=== PATIENT | male | born 1980 | race Caucasian/White ===

== ENCOUNTER 2017-11-13 15:16 | Inpatient (IN) | payer OTHER, MEDICAID ==
[~2017-11-13] VITALS: Ht 165.1 cm; Wt 57.2 kg
[~2017-11-13 15:16] MED LIST: ALPR1TAB2 PO; ALPR2TAB2; ALPR2TAB2 PO; ALPR2TAB5 PO; CEPH-368 PO; FOLI-17; FOLI-17 PO; FOLI0.4T2 PO; FOLI20CA; HYDR2TAB29 PO; HYDR4TAB48; HYDR4TAB48 PO; MULT-658 PO; MULTIVITAMIN; OXYC-307; OXYC-307 PO; OXYC20TA42 PO; OXYC5TAB3 PO; SENN1TAB8 PO; [UNRECOGNIZED DRUG - CODE] PO
[2017-11-13] MEDS ORDERED: SODIUM CHLORIDE FLUSH 10ML SYR IVF ONE (16:00)
[2017-11-13 16:22] LABS: INTERNATIONAL NORMALIZED RATIO 1.12 (0.93-1.1); PROTHROMBIN TIME 11.5 Seconds (9.6-11.5)
[2017-11-13 16:26] LABS: ALBUMIN 4.3 g/dL (3.4-5.0); ANION GAP 6 mmol/L (5-15); CALCIUM 8.4 mg/dL (8.5-10.1); CHLORIDE 109 mmol/L (98-107)
[2017-11-13 16:29] LABS: ALKALINE PHOSPHATASE 123 U/L (45-117); BILIRUBIN,TOTAL 10.6 mg/dL (0.2-1.0); CREATININE 0.59 mg/dL (0.7-1.3)
[2017-11-13 16:42] LABS: MD YES; MEAN CORPUSCULAR HEMOGLOBIN 41.4 pg (27.5-34.5); MEAN CORPUSCULAR HGB CONC 33.4 g/dL (33.2-36.2); MEAN CORPUSCULAR VOLUME 124.1 fL (81-97); MEAN PLATELET VOLUME 7.6 fL (7.4-10.4); PLATELET COUNT 525 x10^3/uL (130-400); RED BLOOD COUNT 2.12 x10^6/uL (4.38-5.82); RED CELL DISTRIBUTION WIDTH 26.6 % (9.4-14.8)
[2017-11-13 16:47] LABS: ALANINE AMINOTRANSFERASE 64 U/L (12-78); ANISOCYTOSIS 2+; BANDS%(MANUAL) 2 % (0-7); BASOS% (MANUAL) 2 % (0-1); EOS#(MANUAL) 0.59 x10^3/uL (0.0-0.4); EOS% (MANUAL) 4 % (1-7); HYPOCHROMIA 1+; LYMPH#(MANUAL) 8.14 x10^3/uL (1-3.4); LYMPHS% (MANUAL) 55 % (22-44); METAMYELOCYTES# (MANUAL) 0.15 x10^3/uL (0-0); METAMYELOCYTES% (MANUAL) 1 % (0-1); MICROCYTOSIS 1+; MONOS#(MANUAL) 1.04 x10^3/uL (0.3-2.7); MONOS% (MANUAL) 7 % (2-9); NRBC % (MANUAL) 45 % (0-1); POLYCHROMASIA 3+; SEG#(MANUAL) 4.29 x10^3/uL (1.8-6.8); SEGS% (MANUAL) 29 % (42-75)
[2017-11-13 16:48] LABS: OVALOCYTES 1+; SCHISTOCYTES 1+; SPHEROCYTES 1+; TARGET CELLS 1+
[2017-11-13 16:49] LABS: SMUDGE CELLS 1+
[2017-11-13 16:51] LABS: <PLATELET ESTIMATE> INCREASED; <PLT MORPHOLOGY> NORMAL PLT MORPH
[2017-11-13 16:51] LABS: CULTURE INDICATED? YES; MICROSCOPIC INDICATED
[2017-11-13] MEDS ORDERED: BISACODYL 10 MG SUPP PR PRN (19:30)
[2017-11-13] MEDS ORDERED: OXYCODONE HCL PO SCH (19:30)
[2017-11-13] MEDS ORDERED: DIPHENHYDRAMINE 25 MG CAPSULE PO PRN (19:30)
[2017-11-13] MEDS ORDERED: [UNRECOGNIZED DRUG - OTHER] PO SCH (19:30)
[2017-11-13] MEDS ORDERED: POLYETHYLENE GLYCOL 17 GM PACKET PO PRN (19:30)
[2017-11-13] MEDS ORDERED: ACETAMINOPHEN PO SCH (19:30)
[2017-11-13] MEDS ORDERED: ONDANSETRON ODT 4 MG PO PRN (19:30)
[2017-11-13] MEDS ORDERED: SODIUM CHLORIDE FLUSH 10ML SYR IVF PRN (19:30)
[2017-11-13] MEDS: HYDROmorphone 2MG TABLET PO SCH (21:24)
[2017-11-13] MEDS: SODIUM CHLORIDE 0.9% 1,000 ML IV SCH (21:24)
[2017-11-13] MEDS: ALPRazolam 1MG TABLET PO PRN (22:04)
[2017-11-13 23:49] VITALS: BP 116/71
[2017-11-14] MEDS: OXYcodone IR 5MG TABLET PO PRN ×4 (00:38→19:55)
[2017-11-14 01:39] VITALS: BP 100/67
[2017-11-14 03:15] LABS: OCCULT BLOOD NEGATIVE (NEGATIVE)
[2017-11-14 05:35] LABS: MEAN CORPUSCULAR HEMOGLOBIN 40.4 pg (27.5-34.5); MEAN CORPUSCULAR HGB CONC 32.4 g/dL (33.2-36.2); MEAN CORPUSCULAR VOLUME 124.7 fL (81-97); MEAN PLATELET VOLUME 7.9 fL (7.4-10.4); PLATELET COUNT 415 x10^3/uL (130-400); RED BLOOD COUNT 1.88 x10^6/uL (4.38-5.82); RED CELL DISTRIBUTION WIDTH 26.4 % (9.4-14.8)
[2017-11-14 05:48] LABS: ALBUMIN 3.6 g/dL (3.4-5.0); ANION GAP 6 mmol/L (5-15); CHLORIDE 110 mmol/L (98-107)
[2017-11-14 05:50] LABS: ALANINE AMINOTRANSFERASE 46 U/L (12-78); ALKALINE PHOSPHATASE 106 U/L (45-117); BILIRUBIN,TOTAL 8.1 mg/dL (0.2-1.0); CREATININE 0.61 mg/dL (0.7-1.3); TOTAL PROTEIN 6.1 g/dL (6.4-8.2)
[2017-11-14 05:56] LABS: MD YES
[2017-11-14 06:01] LABS: ANISOCYTOSIS 2+; BASOS#(MANUAL) 0.37 x10^3/uL (0-0.1); BASOS% (MANUAL) 2 % (0-1); EOS#(MANUAL) 0.18 x10^3/uL (0.0-0.4); EOS% (MANUAL) 1 % (1-7); HYPOCHROMIA 1+; LYMPH#(MANUAL) 8.65 x10^3/uL (1-3.4); LYMPHS% (MANUAL) 47 % (22-44); MICROCYTOSIS 1+; MONOS#(MANUAL) 2.02 x10^3/uL (0.3-2.7); MONOS% (MANUAL) 11 % (2-9); NRBC % (MANUAL) 10 % (0-1); POLYCHROMASIA 2+; SEG#(MANUAL) 7.18 x10^3/uL (1.8-6.8); SEGS% (MANUAL) 39 % (42-75)
[2017-11-14 06:02] LABS: <PLATELET ESTIMATE> ADEQUATE; <PLT MORPHOLOGY> NORMAL PLT MORPH; OVALOCYTES 1+; SMUDGE CELLS 1+; SPHEROCYTES 1+; TARGET CELLS 1+
[2017-11-14] MEDS: SODIUM CHLORIDE 0.9% 1,000 ML IV SCH ×4 (06:11→23:39)
[2017-11-14 08:05] VITALS: BP 123/79
[2017-11-14] MEDS: FOLIC ACID 1 MG TABLET PO SCH (08:45)
[2017-11-14] MEDS: MULTIVITAMIN 1 TABLET PO SCH (08:45)
[2017-11-14] MEDS: HYDROmorphone 2MG TABLET PO SCH (08:46)
[2017-11-14] MEDS: SENNA/DOCUSATE TABLET PO SCH (08:47)
[2017-11-14 09:19] LABS: OCCULT BLOOD NEGATIVE (NEGATIVE)
[2017-11-14 13:15] VITALS: BP 131/77
[2017-11-14 20:00] VITALS: BP 117/79
[2017-11-14] MEDS: HYDROmorphone 2MG TABLET PO PRN (22:07)
[2017-11-14] MEDS: ALPRazolam 1MG TABLET PO PRN (22:07)
[2017-11-15] VITALS (7 sets, daily range): BP systolic 107–120; BP diastolic 69–79
[2017-11-15] MEDS: OXYcodone IR 5MG TABLET PO PRN ×4 (02:05→21:56)
[2017-11-15 02:37] LABS: ALANINE AMINOTRANSFERASE 40 U/L (12-78); ALBUMIN 3.5 g/dL (3.4-5.0); ANION GAP 5 mmol/L (5-15); CHLORIDE 110 mmol/L (98-107); CREATININE 0.67 mg/dL (0.7-1.3)
[2017-11-15 02:48] LABS: ALKALINE PHOSPHATASE 110 U/L (45-117); BILIRUBIN,TOTAL 7.8 mg/dL (0.2-1.0)
[2017-11-15 03:17] LABS: MD YES; MEAN CORPUSCULAR HEMOGLOBIN 39.6 pg (27.5-34.5); MEAN CORPUSCULAR HGB CONC 31.5 g/dL (33.2-36.2); MEAN CORPUSCULAR VOLUME 125.7 fL (81-97); MEAN PLATELET VOLUME 8.1 fL (7.4-10.4); PLATELET COUNT 436 x10^3/uL (130-400); RED BLOOD COUNT 1.88 x10^6/uL (4.38-5.82); RED CELL DISTRIBUTION WIDTH 26.8 % (9.4-14.8)
[2017-11-15 03:21] LABS: BAND#(MANUAL) 0.21 x10^3/uL; BANDS%(MANUAL) 1 % (0-7); BASOS#(MANUAL) 0.62 x10^3/uL (0-0.1); BASOS% (MANUAL) 3 % (0-1); EOS#(MANUAL) 1.44 x10^3/uL (0.0-0.4); EOS% (MANUAL) 7 % (1-7); LYMPH#(MANUAL) 12.36 x10^3/uL (1-3.4); LYMPHS% (MANUAL) 60 % (22-44); MONOS#(MANUAL) 0.62 x10^3/uL (0.3-2.7); MONOS% (MANUAL) 3 % (2-9); NRBC % (MANUAL) 23 % (0-1); SEG#(MANUAL) 5.36 x10^3/uL (1.8-6.8); SEGS% (MANUAL) 26 % (42-75)
[2017-11-15 03:22] LABS: ANISOCYTOSIS 2+; HYPOCHROMIA 1+; MICROCYTOSIS 1+; POLYCHROMASIA 2+; SPHEROCYTES 1+
[2017-11-15 03:23] LABS: CRENATED 1+; OVALOCYTES 1+
[2017-11-15 03:24] LABS: HOWELL-JOLLY BODIES 1+
[2017-11-15 03:25] LABS: <PLATELET ESTIMATE> INCREASED; <PLT MORPHOLOGY> NORMAL PLT MORPH
[2017-11-15] MEDS: MULTIVITAMIN 1 TABLET PO SCH (08:31)
[2017-11-15] MEDS: SODIUM CHLORIDE 0.9% 1,000 ML IV SCH ×2 (08:31→17:50)
[2017-11-15] MEDS: FOLIC ACID 1 MG TABLET PO SCH (08:31)
[2017-11-15] MEDS: SENNA/DOCUSATE TABLET PO SCH (08:33)
[2017-11-15] MEDS: HYDROmorphone 2MG TABLET PO PRN ×2 (11:13→23:16)
[2017-11-15 14:45] LABS: MD YES; MEAN CORPUSCULAR HEMOGLOBIN 41.3 pg (27.5-34.5); MEAN CORPUSCULAR HGB CONC 32.7 g/dL (33.2-36.2); MEAN CORPUSCULAR VOLUME 126.2 fL (81-97); PLATELET COUNT 447 x10^3/uL (130-400); RED BLOOD COUNT 2.09 x10^6/uL (4.38-5.82)
[2017-11-15 14:58] LABS: RED CELL DISTRIBUTION WIDTH 25.4 % (9.4-14.8)
[2017-11-15 14:59] LABS: BAND#(MANUAL) 0.16 x10^3/uL; BANDS%(MANUAL) 1 % (0-7); EOS#(MANUAL) 0.32 x10^3/uL (0.0-0.4); EOS% (MANUAL) 2 % (1-7); LYMPHS% (MANUAL) 45 % (22-44); MONOS#(MANUAL) 0.32 x10^3/uL (0.3-2.7); MONOS% (MANUAL) 2 % (2-9); SEGS% (MANUAL) 50 % (42-75)
[2017-11-15 15:00] LABS: ANISOCYTOSIS 2+; CRENATED 1+; HYPOCHROMIA 2+; MICROCYTOSIS 1+; OVALOCYTES 1+; POLYCHROMASIA 3+; SPHEROCYTES 1+
[2017-11-15 15:01] LABS: TARGET CELLS 1+
[2017-11-15 15:02] LABS: <PLATELET ESTIMATE> ADEQUATE; <PLT MORPHOLOGY> NORMAL PLT MORPH; TOXIC GRAN 1+
[2017-11-15] MEDS: ALPRazolam 1MG TABLET PO PRN (21:56)
[2017-11-16 02:45] VITALS: BP 104/62
[2017-11-16] MEDS: SODIUM CHLORIDE 0.9% 1,000 ML IV SCH (03:49)
[2017-11-16] MEDS: OXYcodone IR 5MG TABLET PO PRN ×2 (03:49→11:15)
[2017-11-16 04:31] LABS: ALANINE AMINOTRANSFERASE 39 U/L (12-78); ALBUMIN 3.4 g/dL (3.4-5.0); ANION GAP 6 mmol/L (5-15); CALCIUM 8.2 mg/dL (8.5-10.1); CHLORIDE 109 mmol/L (98-107); CREATININE 0.77 mg/dL (0.7-1.3)
[2017-11-16 04:34] LABS: ALKALINE PHOSPHATASE 108 U/L (45-117); BILIRUBIN,TOTAL 5.2 mg/dL (0.2-1.0)
[2017-11-16 04:59] LABS: MEAN CORPUSCULAR HEMOGLOBIN 39.2 pg (27.5-34.5); MEAN CORPUSCULAR HGB CONC 30.8 g/dL (33.2-36.2); MEAN CORPUSCULAR VOLUME 127.5 fL (81-97); MEAN PLATELET VOLUME 8.2 fL (7.4-10.4); PLATELET COUNT 414 x10^3/uL (130-400); RED BLOOD COUNT 1.84 x10^6/uL (4.38-5.82); RED CELL DISTRIBUTION WIDTH 25.5 % (9.4-14.8)
[2017-11-16 05:21] LABS: MD YES
[2017-11-16 05:27] LABS: BAND#(MANUAL) 0.19 x10^3/uL; BANDS%(MANUAL) 1 % (0-7); BASOS#(MANUAL) 0.37 x10^3/uL (0-0.1); BASOS% (MANUAL) 2 % (0-1); EOS#(MANUAL) 1.31 x10^3/uL (0.0-0.4); EOS% (MANUAL) 7 % (1-7); LYMPH#(MANUAL) 8.23 x10^3/uL (1-3.4); LYMPHS% (MANUAL) 44 % (22-44); MONOS#(MANUAL) 1.31 x10^3/uL (0.3-2.7); MONOS% (MANUAL) 7 % (2-9); MYELOCYTES# (MANUAL) 0.19 x10^3/uL (0-0); MYELOCYTES% (MANUAL) 1 % (0-0); NRBC % (MANUAL) 53 % (0-1); SEG#(MANUAL) 7.11 x10^3/uL (1.8-6.8); SEGS% (MANUAL) 38 % (42-75)
[2017-11-16 05:28] LABS: ANISOCYTOSIS 2+; HYPOCHROMIA 2+; MICROCYTOSIS 1+
[2017-11-16 05:29] LABS: OVALOCYTES 1+; POLYCHROMASIA 3+; SPHEROCYTES 1+
[2017-11-16 05:30] LABS: CRENATED 1+; HOWELL-JOLLY BODIES 1+
[2017-11-16 05:31] LABS: <PLATELET ESTIMATE> INCREASED; <PLT MORPHOLOGY> NORMAL PLT MORPH
[2017-11-16 07:05] VITALS: BP 122/72
[2017-11-16] MEDS: SENNA/DOCUSATE TABLET PO SCH (09:00)
[2017-11-16] MEDS: MULTIVITAMIN 1 TABLET PO SCH (09:08)
[2017-11-16] MEDS: FOLIC ACID 1 MG TABLET PO SCH (09:08)
[2017-11-16 09:21] VITALS: BP 118/70
[2017-11-16 09:48] VITALS: BP 115/63
[2017-11-16] MEDS ORDERED: ALPRazolam 1MG TABLET PO ONE (10:00)
[2017-11-16] MEDS ORDERED: HYDROmorphone 2MG TABLET PO ONE (10:00)
[2017-11-16] MEDS: HYDROmorphone 2MG TABLET PO PRN (12:01)
[2017-11-16 12:03] VITALS: BP 109/63
[2017-11-16 13:50] VITALS: BP 119/73
[2017-11-16 14:14] LABS: MEAN CORPUSCULAR HEMOGLOBIN 37.7 pg (27.5-34.5); MEAN CORPUSCULAR HGB CONC 32.3 g/dL (33.2-36.2); MEAN CORPUSCULAR VOLUME 116.5 fL (81-97); MEAN PLATELET VOLUME 8.2 fL (7.4-10.4); PLATELET COUNT 413 x10^3/uL (130-400); RED BLOOD COUNT 2.65 x10^6/uL (4.38-5.82)
[2017-11-16 14:15] LABS: RED CELL DISTRIBUTION WIDTH 32.1 % (9.4-14.8)
[2017-11-16 14:16] LABS: MD YES
[2017-11-16 14:20] LABS: BASOS#(MANUAL) 0.43 x10^3/uL (0-0.1); BASOS% (MANUAL) 2 % (0-1); EOS#(MANUAL) 1.07 x10^3/uL (0.0-0.4); EOS% (MANUAL) 5 % (1-7); LYMPH#(MANUAL) 7.92 x10^3/uL (1-3.4); LYMPHS% (MANUAL) 37 % (22-44); METAMYELOCYTES# (MANUAL) 0.21 x10^3/uL (0-0); METAMYELOCYTES% (MANUAL) 1 % (0-1); MONOS#(MANUAL) 1.07 x10^3/uL (0.3-2.7); MONOS% (MANUAL) 5 % (2-9); MYELOCYTES# (MANUAL) 0.64 x10^3/uL (0-0); MYELOCYTES% (MANUAL) 3 % (0-0); NRBC % (MANUAL) 94 % (0-1); REACTIVE LYMPHS # (MANUAL) 0.43 x10^3/uL (0-0); REACTIVE LYMPHS % (MANUAL) 2 % (0-0); SEG#(MANUAL) 9.63 x10^3/uL (1.8-6.8); SEGS% (MANUAL) 45 % (42-75)
[2017-11-16 14:21] LABS: <PLATELET ESTIMATE> INCREASED
[2017-11-16 14:23] LABS: ANISOCYTOSIS 2+
[2017-11-16 14:24] LABS: HOWELL-JOLLY BODIES 1+; OVALOCYTES 1+
[2017-11-16 14:25] LABS: LARGE PLATELETS 1+; POLYCHROMASIA 3+
[2017-11-16 14:26] LABS: SPHEROCYTES 1+
== END 2017-11-16 17:00 | DRG 812 ==
LOC: ED 16:01 → EDIP 19:26 → 4WST 20:09
PROVIDERS: ADMIT Internal Medicine; ATTEND Internal Medicine
PROC: 30233N1 Transfusion of Nonautologous Red Blood Cells into Peripheral Vein, Percutaneous Approach (ICD-10-PCS; principal; 2017-11-16)
DX: D57.00 Hb-SS disease with crisis, unspecified (principal); F11.20 Opioid dependence, uncomplicated; D55.2 Anemia due to disorders of glycolytic enzymes; B19.20 Unspecified viral hepatitis C without hepatic coma; D53.9 Nutritional anemia, unspecified; D72.829 Elevated white blood cell count, unspecified; F17.210 Nicotine dependence, cigarettes, uncomplicated; G89.4 Chronic pain syndrome; N28.1 Cyst of kidney, acquired; Z76.5 Malingerer [conscious simulation]; Z79.891 Long term (current) use of opiate analgesic; Z80.0 Family history of malignant neoplasm of digestive organs; Z82.49 Family history of ischemic heart disease and other diseases of the circulatory system; Z90.81 Acquired absence of spleen; Z90.49 Acquired absence of other specified parts of digestive tract; Z88.8 Allergy status to other drugs, medicaments and biological substances; Z71.6 Tobacco abuse counseling
CPT/HCPCS: 36415; 76700; 80053; 81001; 82272; 82607; 83690; 83735; 84100; 84443; 85025; 85610; 85730; 86850; 86900; 86923; 87040; 87086; 90656; 99285; G0378; J7030; P9016; Q0163

== ENCOUNTER 2018-04-24 12:54 | Emergency (ER) | payer OTHER, MEDICAID ==
[~2018-04-24] VITALS: Ht 165.1 cm; Wt 42.8 kg
[~2018-04-24 12:54] MED LIST changes: +SENN-177 PO; -SENN1TAB8 PO
[2018-04-24] MEDS ORDERED: HYDROmorphone 1 MG/ML, 1ML IV ONE ×2 (13:30→16:30)
[2018-04-24] MEDS ORDERED: ONDANSETRON ODT 4 MG PO ONE (13:30)
[2018-04-24] MEDS ORDERED: SODIUM CHLORIDE FLUSH 10ML SYR IVF ONE (13:30)
--- NOTE | 2018-04-24 13:47 | NUR ---
PIV IN RIGHT EJ PLACED WITHOUT COMPLICATIONS.
[2018-04-24] MEDS ORDERED: HYDROmorphone 1 MG/ML, 1ML ONE ×2 (14:06→16:10)
[2018-04-24] MEDS ORDERED: ONDANSETRON ODT 4 MG ONE (14:06)
[2018-04-24 14:10] LABS: INTERNATIONAL NORMALIZED RATIO 1.17 (0.93-1.1); PROTHROMBIN TIME 12.2 Seconds (9.6-11.5)
[2018-04-24 14:11] LABS: ALANINE AMINOTRANSFERASE 55 U/L (12-78); ALBUMIN 4.8 g/dL (3.4-5.0); ANION GAP 5 mmol/L (5-15); CHLORIDE 111 mmol/L (98-107); CREATININE 0.63 mg/dL (0.7-1.3); MEAN CORPUSCULAR HEMOGLOBIN 34.1 pg (27.5-34.5); MEAN CORPUSCULAR VOLUME 103.4 fL (81-97); MEAN PLATELET VOLUME 8.2 fL (7.4-10.4); PLATELET COUNT 493 x10^3/uL (130-400); RED BLOOD COUNT 3.03 x10^6/uL (4.38-5.82); RED CELL DISTRIBUTION WIDTH 31.6 % (9.4-14.8)
[2018-04-24 14:14] LABS: ALKALINE PHOSPHATASE 117 U/L (45-117); BILIRUBIN,TOTAL 7.1 mg/dL (0.2-1.0); TOTAL PROTEIN 7.5 g/dL (6.4-8.2)
[2018-04-24] MEDS ORDERED: DIPHENHYDRAMINE 50 MG/ML, 1ML ONE (14:20)
[2018-04-24] MEDS ORDERED: DIPHENHYDRAMINE 50 MG/ML, 1ML IVPush ONE (14:30)
--- NOTE | 2018-04-24 15:01 | NUR ---
PT PRE MEDICATED FOR CT. CONTACTED CT.
[2018-04-24 15:11] LABS: MD YES
[2018-04-24 15:14] LABS: BASOS#(MANUAL) 0.21 x10^3/uL (0-0.1); BASOS% (MANUAL) 2 % (0-1); EOS% (MANUAL) 1 % (1-7); LYMPH#(MANUAL) 4.43 x10^3/uL (1-3.4); LYMPHS% (MANUAL) 43 % (22-44); MONOS#(MANUAL) 1.34 x10^3/uL (0.3-2.7); MONOS% (MANUAL) 13 % (2-9); NRBC % (MANUAL) 10 % (0-1); SEG#(MANUAL) 4.22 x10^3/uL (1.8-6.8); SEGS% (MANUAL) 41 % (42-75)
[2018-04-24 15:16] LABS: ANISOCYTOSIS 2+
[2018-04-24 15:17] LABS: POLYCHROMASIA 2+
[2018-04-24 15:18] LABS: OVALOCYTES 1+; SPHEROCYTES 1+
[2018-04-24 15:20] LABS: <PLATELET ESTIMATE> INCREASED; CRENATED 1+; HOWELL-JOLLY BODIES 1+; LARGE PLATELETS 1+
--- NOTE | 2018-04-24 15:21 | NUR ---
pt to ct with rn perinatal, tollerated CT WELL AND RTD TO ROOM W/O INCIDENT. VSS
[2018-04-24 15:22] VITALS: BP 125/68
--- NOTE | 2018-04-24 16:26 | NUR ---
SBAR RPT TO RAMSEY CORONEL RN, RYAN. PT D/C IN CUSTODY, UPRIGHT STEADY GAIT. VERBALIZES UNDERSTANDING OF D/C INSTRUCTIONS.
== END 2018-04-24 16:21 | disposition home or self-care (01) ==
LOC: ED 13:03
DX: G89.29 Other chronic pain (principal); R10.84 Generalized abdominal pain; D64.9 Anemia, unspecified
CPT/HCPCS: 36415; 74177; 80053; 83690; 85025; 85610; 85730; 86850; 86900; 93005; 96374; 96375; 96376; 99284; J1170; J1200

== ENCOUNTER 2018-06-11 10:13 | Emergency (ER) | payer SELFPAY ==
[~2018-06-11] VITALS: Ht 165.1 cm; Wt 54.8 kg
--- NOTE | 2018-06-11 11:06 | NUR ---
TO ROOM FROM LOBBY
--- NOTE | 2018-06-11 11:10 | NUR ---
pt up self with steady gait to rr to collect ua.
[2018-06-11] MEDS ORDERED: OXYC-307 PO (11:21)
[2018-06-11] MEDS ORDERED: FOLI-17 PO (11:21)
[2018-06-11] MEDS ORDERED: MULTIVITAMIN (11:21)
[2018-06-11] MEDS ORDERED: HYDR2TAB29 PO (11:21)
--- NOTE | 2018-06-11 11:27 | NUR ---
PT TO ED FOR JAUNDICE X2 DAYS AND ABD PAIN RAD TO RIGHT FLANK X1 DAY. PT ALSO REPORTS BLOOD IN URINE AND DRAK, TARRY STOOLS. HX ULCERS AND HEP C TREATED WITH HARBONI. CONNECTED TO MONITORS. VSS. AWAITING EDMD ASSESSMETN.
--- NOTE | 2018-06-11 11:31 | NUR ---
edmd to bs for assessment.
[2018-06-11] MEDS ORDERED: ONDANSETRON 2MG/ML, 2ML ONE (11:55)
[2018-06-11] MEDS ORDERED: MORPHINE SULFATE 4 MG/ML, 1ML ONE (11:55)
[2018-06-11] MEDS: ONDANSETRON 2MG/ML, 2ML IVPush ONE ×2 (12:00→12:38)
[2018-06-11] MEDS ORDERED: MORPHINE SULFATE 4 MG/ML, 1ML IVPush PRN (12:00)
[2018-06-11] MEDS ORDERED: SODIUM CHLORIDE FLUSH 10ML SYR IVF ONE (12:00)
[2018-06-11 12:12] LABS: MICROSCOPIC AUTO
--- NOTE | 2018-06-11 12:12 | NUR ---
pt to ct.
[2018-06-11 12:25] LABS: CULTURE INDICATED? YES
--- NOTE | 2018-06-11 12:43 | NUR ---
pt resting in room. pt medicated per apr. requesting benadryl for itching with morphine. will notify edmd.
--- NOTE | 2018-06-11 12:49 | NUR ---
us to bs.
[2018-06-11 12:53] LABS: ALBUMIN 3.8 g/dL (3.4-5.0); ANION GAP 5 mmol/L (5-15); CALCIUM 8.4 mg/dL (8.5-10.1); CHLORIDE 114 mmol/L (98-107); INTERNATIONAL NORMALIZED RATIO 1.05 (0.93-1.1)
[2018-06-11 12:57] LABS: ALANINE AMINOTRANSFERASE 52 U/L (12-78); ALKALINE PHOSPHATASE 124 U/L (45-117); BILIRUBIN,TOTAL 6.2 mg/dL (0.2-1.0); CREATININE 0.62 mg/dL (0.7-1.3); TOTAL PROTEIN 6.5 g/dL (6.4-8.2)
[2018-06-11 13:20] LABS: MD YES; MEAN CORPUSCULAR HEMOGLOBIN 38.8 pg (27.5-34.5); MEAN CORPUSCULAR VOLUME 121.2 fL (81-97); MEAN PLATELET VOLUME 7.4 fL (7.4-10.4); PLATELET COUNT 528 x10^3/uL (130-400); RED BLOOD COUNT 2.19 x10^6/uL (4.38-5.82); RED CELL DISTRIBUTION WIDTH 26.8 % (9.4-14.8)
[2018-06-11 13:24] LABS: BAND#(MANUAL) 0.13 x10^3/uL; BANDS%(MANUAL) 1 % (0-7); BASOS#(MANUAL) 0.13 x10^3/uL (0-0.1); BASOS% (MANUAL) 1 % (0-1); EOS#(MANUAL) 1.21 x10^3/uL (0.0-0.4); EOS% (MANUAL) 9 % (1-7); LYMPH#(MANUAL) 4.69 x10^3/uL (1-3.4); LYMPHS% (MANUAL) 35 % (22-44); MONOS#(MANUAL) 2.01 x10^3/uL (0.3-2.7); MONOS% (MANUAL) 15 % (2-9); SEG#(MANUAL) 5.23 x10^3/uL (1.8-6.8); SEGS% (MANUAL) 39 % (42-75)
--- NOTE | 2018-06-11 13:24 | NUR ---
us complete. awaiting results from us and labs.
[2018-06-11 13:26] LABS: ANISOCYTOSIS 1+; NRBC % (MANUAL) 36 % (0-1)
[2018-06-11 13:37] LABS: <PLATELET ESTIMATE> INCREASED; <PLT MORPHOLOGY> NORMAL PLT MORPH
[2018-06-11 13:38] LABS: POLYCHROMASIA 2+
[2018-06-11 13:39] LABS: ACANTHOCYTES 1+; ECHINOCYTES 1+; TARGET CELLS 1+
[2018-06-11 13:41] LABS: STOMATOCYTES 1+
[2018-06-11 13:51] VITALS: BP 112/73
--- NOTE | 2018-06-11 13:52 | NUR ---
PT RESTING IN ROOM. VSS. REQUESTING PAIN MED. WILL NOTIFY EDMD.
--- NOTE | 2018-06-11 14:20 | NUR ---
edmd to bs to update on poc.
[2018-06-11] MEDS ORDERED: HYDROmorphone 2 MG/ML, 1ML IVPush PRN (14:30)
[2018-06-11 14:34] LABS: RED BLOOD COUNT 2.19 x10^6/uL (4.38-5.82)
[2018-06-11] MEDS ORDERED: HYDROmorphone 1 MG/ML, 1ML VIAL ONE (14:40)
[2018-06-11 14:57] LABS: RETICULOCYTE COUNT % 38.9 % (0.5-1.5)
[2018-06-11 14:59] LABS: ABSOLUTE RETICS # 0.852 x10^6/uL (0.5-1.5)
== END 2018-06-11 15:06 | disposition home or self-care (01) ==
LOC: MERGE 10:13 → ED 14:09
DX: G89.29 Other chronic pain (principal); R10.31 Right lower quadrant pain; D55.2 Anemia due to disorders of glycolytic enzymes; E80.6 Other disorders of bilirubin metabolism; F17.200 Nicotine dependence, unspecified, uncomplicated
CPT/HCPCS: 36415; 74176; 76700; 80053; 81001; 83690; 85025; 85045; 85610; 85730; 87086; 96374; 96375; 99284; J1170; J2405

== ENCOUNTER 2018-06-30 12:06 | Inpatient (IN) | payer MEDICAID ==
[~2018-06-30] VITALS: Ht 165.1 cm; Wt 57.7 kg
[2018-06-30] MEDS ORDERED: SODIUM CHLORIDE 0.9% 1,000 ML IV ONE (12:14)
[2018-06-30] MEDS ORDERED: SODIUM CHLORIDE FLUSH 10ML SYR IVF ONE (12:30)
[2018-06-30 12:59] LABS: INTERNATIONAL NORMALIZED RATIO 1.09 (0.93-1.1); PROTHROMBIN TIME 11.4 Seconds (9.6-11.5)
[2018-06-30 13:01] LABS: ALBUMIN 3.6 g/dL (3.4-5.0); CALCIUM 7.7 mg/dL (8.5-10.1); CHLORIDE 113 mmol/L (98-107); CREATININE 0.71 mg/dL (0.7-1.3)
[2018-06-30 13:04] LABS: BILIRUBIN,TOTAL 7.3 mg/dL (0.2-1.0)
--- NOTE | 2018-06-30 13:08 | NUR ---
PT REQUESTING PAIN MEDICATION. PT EDUCATED MD NEEDS TO WAIT FOR RECORDS FROM [facility] AND GET LAB RESULTS. PT AGREES. PT REMOVING MONITORS TO COME INTO [facility] TO SPEAK TO STAFF AND MD. PT EDUCATED TO LEAVE MONITORS IN PLACE
[2018-06-30 13:17] LABS: ANION GAP 7 mmol/L (5-15)
[2018-06-30 13:19] LABS: ALKALINE PHOSPHATASE 127 U/L (45-117); TOTAL PROTEIN 6.3 g/dL (6.4-8.2)
[2018-06-30 13:21] VITALS: BP 97/43
[2018-06-30 13:27] LABS: MEAN CORPUSCULAR HEMOGLOBIN 39.9 pg (27.5-34.5); MEAN CORPUSCULAR HGB CONC 31.9 g/dL (33.2-36.2); MEAN CORPUSCULAR VOLUME 124.8 fL (81-97); MEAN PLATELET VOLUME 7.3 fL (7.4-10.4); PLATELET COUNT 603 x10^3/uL (130-400); RED BLOOD COUNT 1.98 x10^6/uL (4.38-5.82); RED CELL DISTRIBUTION WIDTH 23.5 % (9.4-14.8)
[2018-06-30 13:38] LABS: MD YES
[2018-06-30 13:46] LABS: EOS#(MANUAL) 0.39 x10^3/uL (0.0-0.4); EOS% (MANUAL) 3 % (1-7); LYMPH#(MANUAL) 6.37 x10^3/uL (1-3.4); LYMPHS% (MANUAL) 49 % (22-44); MONOS#(MANUAL) 0.65 x10^3/uL (0.3-2.7); MONOS% (MANUAL) 5 % (2-9); NRBC % (MANUAL) 31 % (0-1); SEG#(MANUAL) 5.59 x10^3/uL (1.8-6.8); SEGS% (MANUAL) 43 % (42-75)
[2018-06-30 13:47] LABS: ANISOCYTOSIS 2+
[2018-06-30 13:48] LABS: ECHINOCYTES 1+; HYPOCHROMIA 1+; POLYCHROMASIA 2+; TARGET CELLS 1+
[2018-06-30 13:50] LABS: HOWELL-JOLLY BODIES 1+; STOMATOCYTES 1+
[2018-06-30 13:55] LABS: SICKLE CELLS 1+
[2018-06-30 13:57] LABS: <PLATELET ESTIMATE> INCREASED; SMUDGE CELLS 1+
[2018-06-30 13:58] LABS: <PLT MORPHOLOGY> NORMAL PLT MORPH
[2018-06-30 13:59] LABS: ALANINE AMINOTRANSFERASE 54 U/L (12-78)
[2018-06-30] MEDS ORDERED: LACTULOSE 20 GM/30 ML UDC PO ONE (14:00)
--- NOTE | 2018-06-30 14:06 | NUR ---
PT IN [facility] AT THIS TIME, PT CONTINUES TO REMOVE MONITOR AND GET UP AND WALK AROUND DESPITE EDUCATION NOT TO. CRITICAL AMMONIA FROM LAB 131, LACTULOSE GIVEN, BEDSIDE COMMODE OFFERED, PT STATED "I'M NOT DOING THAT", PT STATED HE WOULD GO TO THE BATHROOM DOWN THE [facility]. PT STATED "WHY DIDN'T THE OTHER HOSPITAL KNOW THAT, BECAUSE THEY'RE A SHITTY HOSPITAL", PT AGREED TO TAKE LACTULOSE. AWAITING ADMIT ORDERS
--- NOTE | 2018-06-30 14:33 | NUR ---
REPORT TO ANGELES LUTZ
[2018-06-30] MEDS ORDERED: OXYcodone/APAP 10/325MG TABLET PO PRN (15:00)
[2018-06-30] MEDS ORDERED: ONDANSETRON 2MG/ML, 2ML IVPush PRN (15:00)
[2018-06-30] MEDS ORDERED: ALPRazolam 1MG TAB PO PRN (15:00)
--- NOTE | 2018-06-30 15:02 | NUR ---
ADMIT ORDERS CHANGED TO TELE, AWIATING TELE BED ASSIGNMENT
--- NOTE | 2018-06-30 15:53 | NUR ---
REPORT TO ALBARO
[2018-06-30] MEDS ORDERED: DIPHENHYDRAMINE 25 MG CAPSULE PO ONE (17:00)
[2018-06-30] MEDS ORDERED: LACTULOSE 10 GM/15 ML UDC PO SCH (21:00)
[2018-07-01] MEDS ORDERED: PANTOPROZOLE 40MG TABLET PO SCH (07:30)
[2018-07-01] MEDS ORDERED: MULTIVITAMIN 1 TABLET PO SCH (09:00)
[2018-07-01] MEDS ORDERED: FOLIC ACID 1 MG TABLET PO SCH (09:00)
== END 2018-06-30 19:57 | disposition left against medical advice (07) | DRG 442 ==
LOC: ED 12:56 → EDIP 14:02 → 4WST 16:20
PROVIDERS: ADMIT Internal Medicine; ATTEND Internal Medicine
DX: K71.11 Toxic liver disease with hepatic necrosis, with coma (principal); D59.9 Acquired hemolytic anemia, unspecified; T50.905A Adverse effect of unspecified drugs, medicaments and biological substances, initial encounter; Y92.89 Other specified places as the place of occurrence of the external cause; D50.9 Iron deficiency anemia, unspecified; D72.829 Elevated white blood cell count, unspecified; F11.10 Opioid abuse, uncomplicated; F17.210 Nicotine dependence, cigarettes, uncomplicated; Z53.21 Procedure and treatment not carried out due to patient leaving prior to being seen by health care provider; G89.4 Chronic pain syndrome; K74.60 Unspecified cirrhosis of liver; N28.1 Cyst of kidney, acquired; Z63.8 Other specified problems related to primary support group; Z76.5 Malingerer [conscious simulation]; Z80.0 Family history of malignant neoplasm of digestive organs; Z82.49 Family history of ischemic heart disease and other diseases of the circulatory system; Z86.19 Personal history of other infectious and parasitic diseases; Z90.81 Acquired absence of spleen; Z90.49 Acquired absence of other specified parts of digestive tract; Z88.6 Allergy status to analgesic agent; Z91.041 Radiographic dye allergy status
CPT/HCPCS: 36415; 80053; 82140; 83690; 85025; 85610; 85730; 86850; 86900; 99285; G0378; J7030; Q0163

== ENCOUNTER 2018-08-14 14:54 | Emergency (ER) | payer MEDICAID ==
[~2018-08-14] VITALS: Ht 165.1 cm; Wt 57.3 kg
[2018-08-14] VITALS (7 sets, daily range): BP systolic 107–125; BP diastolic 60–83
--- NOTE | 2018-08-14 15:18 | NUR ---
BIB EMS FROM HOME. PT WITH HX OF PYRUVIC KINASE DEFICENCY, CHRONIC PAIN. RPTS INCREASED JOINT PAIN OVER PAST 3 DAYS, BLOOD IN URINE, ABD PAIN, JAUNDICE. DR. SAVAGE AT BEDSIDE, ASSESSMENT DISCUSSED AND ORDERS REC'D. CARDIAC, BP AND PULSE OX IN PLACE. VSS, PT IN PAIN 11/15. CALL LIGHT W/I REACH
[2018-08-14] MEDS ORDERED: SODIUM CHLORIDE FLUSH 10ML SYR IVF ONE (15:30)
[2018-08-14] MEDS ORDERED: DIPHENHYDRAMINE 25 MG CAPSULE PO ONE ×2 (15:30→17:00)
[2018-08-14] MEDS ORDERED: HYDROmorphone 2 MG/ML, 1ML ONE ×3 (15:32→19:11)
[2018-08-14] MEDS ORDERED: DIPHENHYDRAMINE 25 MG CAPSULE ONE ×2 (15:32→19:11)
[2018-08-14] MEDS: HYDROmorphone 2 MG/ML, 1ML IVPush PRN ×2 (15:34→17:09)
--- NOTE | 2018-08-14 15:49 | NUR ---
BINTAAR RPT TO NELDA DE PAZ.
[2018-08-14 16:18] LABS: INTERNATIONAL NORMALIZED RATIO 1.14 (0.93-1.1); PROTHROMBIN TIME 11.9 Seconds (9.6-11.5)
[2018-08-14 16:19] LABS: ALANINE AMINOTRANSFERASE 73 U/L (12-78); ALBUMIN 4.1 g/dL (3.4-5.0); ANION GAP 8 mmol/L (5-15); CALCIUM 8.6 mg/dL (8.5-10.1); CHLORIDE 111 mmol/L (98-107)
[2018-08-14 16:22] LABS: ALKALINE PHOSPHATASE 113 U/L (45-117); BILIRUBIN,TOTAL 7.7 mg/dL (0.2-1.0); TOTAL PROTEIN 7.1 g/dL (6.4-8.2)
[2018-08-14 16:30] LABS: MEAN CORPUSCULAR HEMOGLOBIN 40.3 pg (27.5-34.5); MEAN CORPUSCULAR HGB CONC 31.8 g/dL (33.2-36.2); MEAN CORPUSCULAR VOLUME 126.6 fL (81-97); MEAN PLATELET VOLUME 7.5 fL (7.4-10.4); PLATELET COUNT 534 x10^3/uL (130-400); RED BLOOD COUNT 1.79 x10^6/uL (4.38-5.82); RED CELL DISTRIBUTION WIDTH 16.6 % (9.4-14.8)
--- NOTE | 2018-08-14 16:33 | NUR ---
CRITICAL VALUE FROM LAB: EDWIN OF 22.7. REPORTED TO PROVIDER.
[2018-08-14 16:34] LABS: MICROSCOPIC NOT IND
[2018-08-14 16:36] LABS: MD YES
[2018-08-14 16:39] LABS: CULTURE INDICATED? NO
[2018-08-14 16:42] LABS: EOS#(MANUAL) 0.96 x10^3/uL (0.0-0.4); EOS% (MANUAL) 6 % (1-7); METAMYELOCYTES# (MANUAL) 0.32 x10^3/uL (0-0); METAMYELOCYTES% (MANUAL) 2 % (0-1); MONOS#(MANUAL) 1.12 x10^3/uL (0.3-2.7); MONOS% (MANUAL) 7 % (2-9); NRBC % (MANUAL) 19 % (0-1)
[2018-08-14 16:43] LABS: BASOS#(MANUAL) 0.32 x10^3/uL (0-0.1); BASOS% (MANUAL) 2 % (0-1); LYMPH#(MANUAL) 6.56 x10^3/uL (1-3.4); LYMPHS% (MANUAL) 41 % (22-44); SEG#(MANUAL) 6.72 x10^3/uL (1.8-6.8); SEGS% (MANUAL) 42 % (42-75)
[2018-08-14 16:44] LABS: ANISOCYTOSIS 2+; HYPOCHROMIA 1+; POLYCHROMASIA 2+
[2018-08-14 16:45] LABS: ACANTHOCYTES 1+; ECHINOCYTES 1+; HOWELL-JOLLY BODIES 1+; STOMATOCYTES 1+; TARGET CELLS 1+; TEAR DROPS 1+
[2018-08-14 16:46] LABS: SPHEROCYTES 1+
[2018-08-14 16:51] LABS: <PLATELET ESTIMATE> INCREASED; <PLT MORPHOLOGY> NORMAL PLT MORPH; SMUDGE CELLS 1+
[2018-08-14 16:52] LABS: RED BLOOD COUNT 1.81 x10^6/uL (4.38-5.82)
[2018-08-14] MEDS ORDERED: HYDROmorphone 1 MG/ML, 1ML INJ IV STA (16:58)
--- NOTE | 2018-08-14 17:15 | NUR ---
PT MEDICATED FOR PAIN. VSS. NAD. ODONNELL ROUNDED ON PT.
[2018-08-14 17:32] LABS: ABSOLUTE RETICS # 0.654 x10^6/uL (0.5-1.5); RETICULOCYTE COUNT % 36.16 % (0.5-1.5)
--- NOTE | 2018-08-14 18:00 | NUR ---
METAL SASH SETTER: Spoke with patient regarding plan of care, patient is calm and agreeable with plan for blood transfusion and discharge at this time. Call grimm within reach.
--- NOTE | 2018-08-14 18:39 | NUR ---
Patient is resting comfortably in bed. Vital Signs within normal limits.
--- NOTE | 2018-08-14 19:04 | NUR ---
ASSUMED CARE OF PATIENT. REPORT GIVEN FROM NELDA DE PAZ.
--- NOTE | 2018-08-14 19:40 | NUR ---
DR SAVAGE EXPLAINED BLOOD TO PATIENT AND ANSWERED ALL QUESTIONS. BLOOD BANK CALLED AND QUESTIONS ANSWERED. PT OKAYED TO TRANSFUSE PER DR SAVAGE
--- NOTE | 2018-08-14 19:53 | NUR ---
PT TALKING ON PHONE. VS STABLE. CALL LIGHT IN PLACE. WILL CONTINUE TO MONITOR.
--- NOTE | 2018-08-14 20:09 | NUR ---
PT IS WATCHING TV IN ROOM. NO ACUTE DISTRESS NOTED. CALL LIGHT IN PLACE. WILL CONTINUE TO MONITOR.
--- NOTE | 2018-08-14 20:40 | NUR ---
PT EATING A SANDWICH IN ROOM. VS STABLE. NO ACUTE DISTRESS NOTED. WILL CONTINUE TO MONITOR.
--- NOTE | 2018-08-14 20:53 | NUR ---
BLOOD DONE. PT TALKING ON CELL PHONE. VS STABLE. NO ACUTE DISTRESS NOTED. WILL CONTINUE TO MONITOR.
--- NOTE | 2018-08-14 20:56 | NUR ---
BLOOD TRANSFUSION AFTER CARE INSTRUCTIONS HAVE BEEN GIVEN TO PATIENT. PATIENT VERBALIZES UNDERSTANDING. PT WANTS TO LEAVE. PT CALLED MOTHER FOR A RIDE. PT READY FOR DC.
--- NOTE | 2018-08-14 21:11 | NUR ---
POST BLOOD DISCHRAGE INSTRUCTIONS GIVEN. PT REFUSED TO STAY ANY LONGER, MOTHER WAS PICKING UP PATIENT. VS STABLE. PT VERBALIZES POST BLOOD INSTRUCTIONS. ALL QUESTIONS ANSWERED. PT DISCHRAGED PER DR SAVAGE.
== END 2018-08-14 21:14 | disposition home or self-care (01) ==
LOC: ED 17:15
DX: D59.9 Acquired hemolytic anemia, unspecified (principal); D55.2 Anemia due to disorders of glycolytic enzymes; R31.9 Hematuria, unspecified; F17.200 Nicotine dependence, unspecified, uncomplicated; Z90.49 Acquired absence of other specified parts of digestive tract
CPT/HCPCS: 36415; 36430; 74022; 80053; 81003; 83690; 85025; 85045; 85610; 85730; 86850; 86900; 86923; 93005; 96374; 96376; 99285; J1170; P9016; Q0163

== ENCOUNTER 2018-12-23 00:20 | Emergency (ER) | payer MEDICAID ==
[~2018-12-23] VITALS: Ht 165.1 cm; Wt 54.0 kg
[~2018-12-23 00:20] MED LIST changes: +CEFD300C37 PO; +OXYC-432 PO; +POLY17PO5 PO
--- NOTE | 2018-12-23 01:39 | NUR ---
PT TO ROOM FROM LOBBY
--- NOTE | 2018-12-23 01:41 | NUR ---
PT UP TO RR WITH STEADY GAIT
--- NOTE | 2018-12-23 01:50 | NUR ---
URINE SAMPLE TAKEN TO LAB
[2018-12-23] MEDS ORDERED: PROMETHAZINE 25 MG/ML, 1ML ONE (01:57)
[2018-12-23] MEDS ORDERED: MAALOX/HYOSCYAMINE/LIDOCAINE 45 ML BTL ONE (01:57)
[2018-12-23] MEDS ORDERED: MAALOX/HYOSCYAMINE/LIDOCAINE 45 ML BTL PO ONE (02:00)
[2018-12-23] MEDS: PROMETHAZINE 25 MG/ML, 1ML IM ONE ×2 (02:01→02:02)
[2018-12-23 02:06] LABS: MICROSCOPIC NOT IND
--- NOTE | 2018-12-23 02:07 | NUR ---
PT REFUSING PHENERGAN AT THIS TIME, REQUESTING THER MEDICATION FOR PAIN. PT STATED " I WANT TO SEE THE DOCTOR AGAIN", ERP UPDATED AND WILL SEE PT
[2018-12-23 02:10] LABS: CULTURE INDICATED? NO
[2018-12-23 02:22] VITALS: BP 106/62
--- NOTE | 2018-12-23 02:22 | NUR ---
PT RESTING ON LIONEL, INFORMED PT THAT ERP WILL BE BACK IN TO SEE HIM, MONITORS IN PLACE, CALL LIGHT WITHIN REACH
[2018-12-23 02:24] LABS: ALBUMIN 4.5 g/dL (3.4-5.0); ANION GAP 6 mmol/L (5-15); CALCIUM 9.1 mg/dL (8.5-10.1); CHLORIDE 110 mmol/L (98-107)
[2018-12-23 02:27] LABS: ALANINE AMINOTRANSFERASE 57 U/L (12-78); ALKALINE PHOSPHATASE 101 U/L (45-117); BILIRUBIN,TOTAL 6.9 mg/dL (0.2-1.0); CREATININE 0.67 mg/dL (0.7-1.3); TOTAL PROTEIN 7.4 g/dL (6.4-8.2)
[2018-12-23 02:34] LABS: MD YES; MEAN CORPUSCULAR HEMOGLOBIN 35.9 pg (27.5-34.5); MEAN CORPUSCULAR HGB CONC 31.4 g/dL (33.2-36.2); MEAN CORPUSCULAR VOLUME 114.4 fL (81-97); MEAN PLATELET VOLUME 7.7 fL (7.4-10.4); PLATELET COUNT 556 x10^3/uL (130-400); RED BLOOD COUNT 2.23 x10^6/uL (4.38-5.82); RED CELL DISTRIBUTION WIDTH 26.5 % (9.4-14.8)
[2018-12-23 02:44] LABS: EOS#(MANUAL) 0.86 x10^3/uL (0.0-0.4); EOS% (MANUAL) 8 % (1-7); LYMPHS% (MANUAL) 62 % (22-44); MONOS#(MANUAL) 0.76 x10^3/uL (0.3-2.7); MONOS% (MANUAL) 7 % (2-9); NRBC % (MANUAL) 26 % (0-1); SEG#(MANUAL) 2.48 x10^3/uL (1.8-6.8); SEGS% (MANUAL) 23 % (42-75)
[2018-12-23 02:45] LABS: ANISOCYTOSIS 2+; POLYCHROMASIA 2+
[2018-12-23 02:46] LABS: CRENATED 1+; OVALOCYTES 1+; SCHISTOCYTES 1+; SPHEROCYTES 1+; TARGET CELLS 1+
[2018-12-23 02:47] LABS: <PLATELET ESTIMATE> INCREASED; <PLT MORPHOLOGY> NORMAL PLT MORPH; HOWELL-JOLLY BODIES 1+
--- NOTE | 2018-12-23 02:55 | NUR ---
PT NOT IN ROOM, PT LEFT WITHOUT D/C PAPERS/INSTRUCTIONS, ERP AND ED SUP UPDATED
== END 2018-12-23 02:58 | disposition home or self-care (01) ==
LOC: ED 01:55
DX: K29.00 Acute gastritis without bleeding (principal); D53.9 Nutritional anemia, unspecified; E80.6 Other disorders of bilirubin metabolism; I10 Essential (primary) hypertension; Z90.49 Acquired absence of other specified parts of digestive tract; Z87.891 Personal history of nicotine dependence
CPT/HCPCS: 36415; 80053; 81003; 83690; 85025; 99283; J2550

== ENCOUNTER 2019-01-19 23:35 | Emergency (ER) | payer MEDICAID ==
[~2019-01-19] VITALS: Ht 165.1 cm; Wt 55.0 kg
--- NOTE | 2019-01-19 23:43 | NUR ---
BIB [facility] FROM HOME WITH C/O GENERALIZE ABDOMINAL PAIN, B/L LOWER BACK PAIN, INCREASED URINATION WITH BLOOD X 3 DAYS AND DIARREHA X2 EPISODES TODAY, FSBS-126, B/P-112/76, HR-92, 95% R/A, LEFT EJ 20G, 5 MG IV MORPHINE GIVEN ENROUTE. PROVIDED PT WITH GOWN, ERP AT BEDSIDE FOR EVAL
[2019-01-19] MEDS ORDERED: OXYcodone/APAP 5/325MG TABLET ONE (23:56)
[2019-01-20] MEDS ORDERED: OXYcodone/APAP 5/325MG TABLET PO ONE
--- NOTE | 2019-01-20 00:02 | NUR ---
PT MEDICATED PER APR. PT NOW C/O HEADACHE, REQUESTING BENADRYL, WILL UPDATE ERP
[2019-01-20 00:03] VITALS: BP 103/51
--- NOTE | 2019-01-20 00:05 | NUR ---
URINE SAMPLE SENT
[2019-01-20 00:11] LABS: ALBUMIN 4.2 g/dL (3.4-5.0); ANION GAP 8 mmol/L (5-15); CHLORIDE 109 mmol/L (98-107); CREATININE 0.63 mg/dL (0.7-1.3)
--- NOTE | 2019-01-20 00:11 | NUR ---
ERP UPDATED PT REQUESTING MARCELO ANTONIO TO PLACE ORDER.
[2019-01-20 00:14] LABS: MICROSCOPIC NOT IND
--- NOTE | 2019-01-20 00:15 | NUR ---
PT REFUSING PO BENADRYL, REQUESTING IV BENADRYL, ERP UPDATED. PT REQUESTING TO TALK TO CLIFF CASTILLO NOTIFIED
[2019-01-20 00:18] LABS: CULTURE INDICATED? NO
[2019-01-20 00:19] LABS: BILIRUBIN,TOTAL 7.2 mg/dL (0.2-1.0); MD YES; MEAN CORPUSCULAR HEMOGLOBIN 40.1 pg (27.5-34.5); MEAN CORPUSCULAR HGB CONC 33.4 g/dL (33.2-36.2); MEAN PLATELET VOLUME 7.6 fL (7.4-10.4); PLATELET COUNT 522 x10^3/uL (130-400); RED BLOOD COUNT 2.06 x10^6/uL (4.38-5.82); RED CELL DISTRIBUTION WIDTH 23.7 % (9.4-14.8)
[2019-01-20 00:20] LABS: ALANINE AMINOTRANSFERASE 68 U/L (12-78); ALKALINE PHOSPHATASE 119 U/L (45-117); TOTAL PROTEIN 7.1 g/dL (6.4-8.2)
[2019-01-20 00:23] LABS: ANISOCYTOSIS 2+; EOS#(MANUAL) 0.59 x10^3/uL (0.0-0.4); EOS% (MANUAL) 3 % (1-7); LYMPH#(MANUAL) 12.29 x10^3/uL (1-3.4); LYMPHS% (MANUAL) 63 % (22-44); MONOS#(MANUAL) 0.98 x10^3/uL (0.3-2.7); MONOS% (MANUAL) 5 % (2-9); NRBC % (MANUAL) 19 % (0-1); SEG#(MANUAL) 5.66 x10^3/uL (1.8-6.8); SEGS% (MANUAL) 29 % (42-75)
[2019-01-20 00:24] LABS: CRENATED 1+; OVALOCYTES 1+; POLYCHROMASIA 2+; SCHISTOCYTES 1+; SPHEROCYTES 1+; TARGET CELLS 1+; TEAR DROPS 1+
[2019-01-20 00:25] LABS: HOWELL-JOLLY BODIES 1+; SMUDGE CELLS 1+
[2019-01-20 00:26] LABS: <PLATELET ESTIMATE> INCREASED; <PLT MORPHOLOGY> NORMAL PLT MORPH
[2019-01-21] MEDS ORDERED: HYDR4TAB48 PO (17:05)
== END 2019-01-20 01:08 | disposition home or self-care (01) ==
LOC: ED 23:46
DX: G89.29 Other chronic pain (principal); R10.84 Generalized abdominal pain; D55.1 Anemia due to other disorders of glutathione metabolism; D72.829 Elevated white blood cell count, unspecified; F11.20 Opioid dependence, uncomplicated; I10 Essential (primary) hypertension; R30.0 Dysuria; Z90.49 Acquired absence of other specified parts of digestive tract; Z90.81 Acquired absence of spleen; Z87.891 Personal history of nicotine dependence; Z72.9 Problem related to lifestyle, unspecified; Z63.8 Other specified problems related to primary support group; Z91.14 Patient's other noncompliance with medication regimen; Z75.9 Unspecified problem related to medical facilities and other health care
CPT/HCPCS: 36415; 80053; 81003; 85025; 99283

== ENCOUNTER 2019-01-21 14:00 | Inpatient (IN) | payer MEDICAID ==
[2019-01-21] VITALS (9 sets, daily range): BP systolic 91–117; BP diastolic 49–76
[~2019-01-21] VITALS: Ht 165.1 cm; Wt 54.8 kg
--- NOTE | 2019-01-21 14:14 | NUR ---
FLAKO. REPORT RECEIVED FROM EMS. PT C/O BILATERAL FLANK PAIN WITH DIARRHEA. PT HAS PYRUUATE KINASE DEFICIENCY AND PT WAS SUPPOSED TO GET BLOOD TRANSFUSION AT [facility] LAST NIGHT. SOME RESONS([facility] DOESN'T HAVE PT'S TYPE OF BLOOD?), PT WAS NOT ABLE TO GET BLOOD TRANSFUSION THERE. PT'S AOX4. RESPS EVEN AND UNLABORED. BP/SPO2 MONITORS IN PLACE. CALL LIGHT WITHIN REACH. PT IS JAUNDICED ON FACE. MEDICAL STUDENT AT BEDSIDE TO EVALUATE AT THIS TIME.
[2019-01-21 15:00] LABS: ALBUMIN 4.2 g/dL (3.4-5.0); ANION GAP 5 mmol/L (5-15); CALCIUM 7.9 mg/dL (8.5-10.1); CHLORIDE 112 mmol/L (98-107)
[2019-01-21 15:05] LABS: ALKALINE PHOSPHATASE 127 U/L (45-117); BILIRUBIN,TOTAL 8.2 mg/dL (0.2-1.0); CREATININE 0.67 mg/dL (0.7-1.3)
--- NOTE | 2019-01-21 15:06 | NUR ---
PT REQUESTING PAIN MED. EDMD AND MEDICAL STUDENT NOTIFIED.
--- NOTE | 2019-01-21 15:15 | NUR ---
PT REQUESTING PAIN MED AGAIN. THIS RN AND METER REPAIR SHOP SUPERVISOR EDUCATED REGARDING PAIN MED'S ORDERS. PT UNDERSTAND.
[2019-01-21 15:16] LABS: ALANINE AMINOTRANSFERASE 69 U/L (12-78)
[2019-01-21 15:42] LABS: MD YES; MEAN CORPUSCULAR HEMOGLOBIN 41.3 pg (27.5-34.5); MEAN CORPUSCULAR HGB CONC 34.1 g/dL (33.2-36.2); MEAN PLATELET VOLUME 7.5 fL (7.4-10.4); PLATELET COUNT 464 x10^3/uL (130-400); RED BLOOD COUNT 1.88 x10^6/uL (4.38-5.82); RED CELL DISTRIBUTION WIDTH 23.8 % (9.4-14.8)
--- NOTE | 2019-01-21 15:54 | NUR ---
HCT 22.7 PER LAB
[2019-01-21 15:55] LABS: ANISOCYTOSIS 2+; EOS% (MANUAL) 2 % (1-7); LYMPH#(MANUAL) 7.05 x10^3/uL (1-3.4); LYMPHS% (MANUAL) 47 % (22-44); MONOS#(MANUAL) 1.05 x10^3/uL (0.3-2.7); MONOS% (MANUAL) 7 % (2-9); NRBC % (MANUAL) 12 % (0-1); SEGS% (MANUAL) 44 % (42-75)
[2019-01-21 15:56] LABS: CRENATED 1+; OVALOCYTES 1+; POLYCHROMASIA 2+; SCHISTOCYTES 1+; SPHEROCYTES 1+; TARGET CELLS 1+; TEAR DROPS 1+
[2019-01-21 15:57] LABS: HOWELL-JOLLY BODIES 1+
[2019-01-21 15:58] LABS: <PLATELET ESTIMATE> INCREASED; <PLT MORPHOLOGY> NORMAL PLT MORPH
--- NOTE | 2019-01-21 16:01 | NUR ---
HC 22.7 EDMD NOTIFIED. PT WANTS FOOD. EDMD NOTIFIED WELL.
[2019-01-21] MEDS ORDERED: OXYcodone/APAP 10/325MG TABLET PO ONE (16:30)
[2019-01-21] MEDS ORDERED: SODIUM CHLORIDE FLUSH 10ML SYR IVF ONE (16:30)
--- NOTE | 2019-01-21 16:40 | NUR ---
TASK RN: IV PLACED FOR ADMIT AND BLOOD TRANSFUSION. CONNECTED TO ALL MONITORING, VSS AT THIS TIME. ADDITIONAL BLANKET PROVIDED TO PT FOR COMFORT. CALL LIGHT WITHIN REACH
[2019-01-21] MEDS ORDERED: OXYcodone/APAP 10/325MG TABLET ONE (17:00)
--- NOTE | 2019-01-21 17:03 | NUR ---
PT MEDICATED PER EMAR. PT TOLERATED WELL.
[2019-01-21] MEDS ORDERED: HYDR4TAB48 PO (17:05)
--- NOTE | 2019-01-21 17:20 | NUR ---
PT SIGNED BLOOD TRASFUSION CONSENT FORM. BUT PT REFUSED AT THIS TIME.
--- NOTE | 2019-01-21 17:22 | NUR ---
PT REFUSED BLOOD TRANSUFUSION AT THIS TIME. PT STATES "I NEED IV BENADRYL BEFORE BLOOD TRANSFUSION." IRA LUTZ SPOKE WITH DR SALGUERO AND HE SAID "I NEED TO TALK TO PT FIRST." BLOOD TRANSFUSION HOLD D/T THIS REASONS.
--- NOTE | 2019-01-21 17:25 | NUR ---
Pt in aggressive tone verbally attacking Geeta RN. Requesting that he wanted IV benadryl prior to his blood transfusion. Pt verbalized " I will not accpet the transfusion until I receieve 50mg iv benadryl". This rn spoke with MD Hills and reported to RN to hold off on trasnfusion since pt is refusing and that he would see the patient at his first convenience. Pt is requesting pain medication as well and informed that RNs will despense medications following doctors orders and not the reccomendations of the patient as he jokingly has told previous staff "dont waste that little bit, my body can handle the full dose". salt lifter aware of pts behavior.
--- NOTE | 2019-01-21 18:06 | NUR ---
HOSPITALIST AT BEDSIDE AT THIS TIME.
--- NOTE | 2019-01-21 18:15 | NUR ---
MEAL TRAY ORDERED AT THIS TIME.
[2019-01-21] MEDS ORDERED: DIPHENHYDRAMINE 50 MG/ML, 1ML ONE (18:17)
[2019-01-21] MEDS: SODIUM CHLORIDE 0.9% 1,000 ML IV SCH (18:28)
[2019-01-21] MEDS ORDERED: POLYETHYLENE GLYCOL 17 GM PACKET PO PRN ×2 (18:30)
[2019-01-21] MEDS ORDERED: ALPRazolam 1MG TAB PO PRN (18:30)
[2019-01-21] MEDS ORDERED: BISACODYL 10 MG SUPP PR PRN (18:30)
[2019-01-21] MEDS ORDERED: DIPHENHYDRAMINE 50 MG/ML, 1ML IVPush ONE (18:30)
[2019-01-21] MEDS ORDERED: ONDANSETRON ODT 4 MG PO PRN (18:30)
[2019-01-21] MEDS ORDERED: OXYcodone IR 5MG TABLET PO PRN (18:30)
[2019-01-21] MEDS ORDERED: ACETAMINOPHEN 325 MG TABLET PO PRN (18:30)
[2019-01-21] MEDS ORDERED: DOCUSATE 100 MG CAPSULE PO PRN (18:30)
[2019-01-21] MEDS ORDERED: ONDANSETRON 2MG/ML, 2ML IVPush PRN (18:30)
[2019-01-21] MEDS ORDERED: PROMETHAZINE 25 MG/ML, 1ML IM PRN (18:30)
--- NOTE | 2019-01-21 18:33 | NUR ---
PT MEDICATED PER EMAR. NS INFUSING AT THIS TIME. PT TOLERATED WELL.
--- NOTE | 2019-01-21 18:49 | NUR ---
meal tray provided at this time.
[2019-01-21 19:01] LABS: FREE T4 (FREE THYROXINE) 1.09 ng/dL (0.76-1.46)
--- NOTE | 2019-01-21 19:06 | NUR ---
report given to wander alcantara.
--- NOTE | 2019-01-21 19:07 | NUR ---
RECEIVED BS REPORT FROM NELDA DINH. PT RESTING ON GURBuyou EATING MEAL. PT UPDATED ON POC. MONITORING IN PLACE, CALL LIGHT WITHIN REACH, BED IN LOW POSITION, X2 RAILS RAISED, ROOM DIMMED FOR PT COMFORT.
--- NOTE | 2019-01-21 20:36 | NUR ---
1ST UNIT OF BLOOD COMPLETED. PT. IS CURRENTY RETING ON GURNEY WITH EYES CLOSED AND NO DISTRESS NOTED. EVEN, NON-LABORED RESPIRATIONS VISIBLE. SLIP SENT TO BLOOD BANK FOR 2ND UNIT.
--- NOTE | 2019-01-21 20:56 | NUR ---
PT RECEIVED X1 UNIT OF BLOOD THUS FAR. PT TOLERATED WELL. PT SLEEPING AT THIS TIME. PT ON MONITORING WITH X2 UNIT INFUSING AT THIS TIME. ALL SAFETY MEASURES IN PLACE, CALL LIGHT WITHIN REACH.
--- NOTE | 2019-01-21 22:44 | NUR ---
REPORT TO NELDA CRAFT.
[2019-01-21] MEDS: HYDROmorphone 2 MG/ML, 1ML IVPush PRN (23:43)
[2019-01-22 03:00] VITALS: BP 109/65
[2019-01-22] MEDS: SODIUM CHLORIDE 0.9% 1,000 ML IV SCH (04:59)
[2019-01-22] MEDS: HYDROmorphone 2 MG/ML, 1ML IVPush PRN ×6 (06:30→21:30)
[2019-01-22 06:48] LABS: MEAN CORPUSCULAR HEMOGLOBIN 34.4 pg (27.5-34.5); MEAN CORPUSCULAR HGB CONC 32.3 g/dL (33.2-36.2); MEAN CORPUSCULAR VOLUME 106.6 fL (81-97); MEAN PLATELET VOLUME 7.9 fL (7.4-10.4); PLATELET COUNT 420 x10^3/uL (130-400); RED BLOOD COUNT 3.09 x10^6/uL (4.38-5.82)
[2019-01-22 06:56] LABS: ALBUMIN 3.7 g/dL (3.4-5.0); ANION GAP 6 mmol/L (5-15); CALCIUM 8.6 mg/dL (8.5-10.1); CHLORIDE 115 mmol/L (98-107)
[2019-01-22 07:01] LABS: ALANINE AMINOTRANSFERASE 54 U/L (12-78); ALKALINE PHOSPHATASE 118 U/L (45-117); BILIRUBIN,TOTAL 7.1 mg/dL (0.2-1.0); CHOL/HDL RATIO 5.9; CHOLESTEROL, TOTAL 83 mg/dL (140-239); CREATININE 0.58 mg/dL (0.7-1.3); HDL CHOL % 17 % (26-37); HDL CHOLESTEROL (DIRECT) 14 mg/dL (40-60); TOTAL PROTEIN 6.3 g/dL (6.4-8.2)
[2019-01-22 07:13] LABS: LDL CHOLESTEROL,CALCULATED < 5 mg/dL (54-169); TRIGLYCERIDES 379 mg/dL (50-200); VLDL CHOLESTEROL 76 mg/dL (0-25)
[2019-01-22 07:39] LABS: MD YES
[2019-01-22] MEDS: MULTIVITAMIN 1 TABLET PO SCH (08:14)
[2019-01-22] MEDS: FOLIC ACID 1 MG TABLET PO SCH (08:14)
[2019-01-22 08:15] LABS: BASOS#(MANUAL) 0.18 x10^3/uL (0-0.1); BASOS% (MANUAL) 1 % (0-1); EOS#(MANUAL) 1.28 x10^3/uL (0.0-0.4); EOS% (MANUAL) 7 % (1-7); MONOS#(MANUAL) 1.65 x10^3/uL (0.3-2.7); MONOS% (MANUAL) 9 % (2-9); NRBC % (MANUAL) 17 % (0-1)
[2019-01-22 08:16] LABS: ANISOCYTOSIS 2+; LYMPHS% (MANUAL) 41 % (22-44); OVALOCYTES 1+; POLYCHROMASIA 2+; SEG#(MANUAL) 7.69 x10^3/uL (1.8-6.8); SEGS% (MANUAL) 42 % (42-75); SPHEROCYTES 1+
[2019-01-22 08:17] LABS: CRENATED 1+; HOWELL-JOLLY BODIES 1+; SCHISTOCYTES 1+; TARGET CELLS 1+; TEAR DROPS 1+
[2019-01-22 08:18] LABS: <PLATELET ESTIMATE> INCREASED; <PLT MORPHOLOGY> NORMAL PLT MORPH
[2019-01-22 09:09] VITALS: BP 115/68
[2019-01-22 14:15] VITALS: BP 117/67
[2019-01-22] MEDS: OXYcodone/APAP 10/325MG TABLET PO PRN (16:25)
[2019-01-22] MEDS ORDERED: DIPHENHYDRAMINE 50 MG/ML, 1ML IVPush PRN (18:00)
[2019-01-22 18:58] VITALS: BP 107/62
[2019-01-23 01:32] VITALS: BP 116/70
[2019-01-23] MEDS: HYDROmorphone 2 MG/ML, 1ML IVPush PRN ×4 (01:38→12:21)
[2019-01-23] MEDS: FOLIC ACID 1 MG TABLET PO SCH (09:19)
[2019-01-23] MEDS: MULTIVITAMIN 1 TABLET PO SCH (09:19)
[2019-01-23 09:30] VITALS: BP 110/67
[2019-01-23 10:23] LABS: MEAN CORPUSCULAR HEMOGLOBIN 34.2 pg (27.5-34.5); MEAN CORPUSCULAR HGB CONC 32.4 g/dL (33.2-36.2); MEAN CORPUSCULAR VOLUME 105.4 fL (81-97); MEAN PLATELET VOLUME 7.8 fL (7.4-10.4); PLATELET COUNT 395 x10^3/uL (130-400); RED BLOOD COUNT 3.13 x10^6/uL (4.38-5.82)
[2019-01-23 10:24] LABS: MD YES
[2019-01-23 10:26] LABS: BAND#(MANUAL) 0.14 x10^3/uL; BANDS%(MANUAL) 1 % (0-7); EOS#(MANUAL) 1.01 x10^3/uL (0.0-0.4); EOS% (MANUAL) 7 % (1-7); LYMPH#(MANUAL) 6.77 x10^3/uL (1-3.4); LYMPHS% (MANUAL) 47 % (22-44); MONOS#(MANUAL) 1.15 x10^3/uL (0.3-2.7); MONOS% (MANUAL) 8 % (2-9); NRBC % (MANUAL) 36 % (0-1); SEG#(MANUAL) 5.33 x10^3/uL (1.8-6.8); SEGS% (MANUAL) 37 % (42-75)
[2019-01-23 10:30] LABS: ANISOCYTOSIS 2+; HOWELL-JOLLY BODIES 1+; POLYCHROMASIA 3+; SPHEROCYTES 1+
[2019-01-23 10:31] LABS: <PLATELET ESTIMATE> ADEQUATE; <PLT MORPHOLOGY> NORMAL PLT MORPH
[2019-01-23] MEDS: OXYcodone/APAP 10/325MG TABLET PO PRN (10:51)
== END 2019-01-23 13:24 | disposition home or self-care (01) | DRG 663 ==
LOC: ED 16:12 → EDIP 16:13 → ED 16:44 → 3N 23:09
PROVIDERS: ADMIT Internal Medicine; ATTEND Internal Medicine
PROC: 30233N1 Transfusion of Nonautologous Red Blood Cells into Peripheral Vein, Percutaneous Approach (ICD-10-PCS; principal; 2019-01-21)
DX: D64.9 Anemia, unspecified (principal); R17 Unspecified jaundice; G89.4 Chronic pain syndrome; I10 Essential (primary) hypertension; Z72.0 Tobacco use; Z76.5 Malingerer [conscious simulation]; Z86.19 Personal history of other infectious and parasitic diseases; Z90.81 Acquired absence of spleen; Z88.5 Allergy status to narcotic agent; Z91.013 Allergy to seafood; Z88.8 Allergy status to other drugs, medicaments and biological substances; Z91.018 Allergy to other foods
CPT/HCPCS: 36415; 36430; 80053; 80061; 83036; 83690; 83735; 84439; 84443; 85025; 86850; 86900; 86923; 99285; G0378; J1170; J1200; J7030; P9016

== ENCOUNTER 2019-01-28 14:59 | Emergency (ER) | payer MEDICAID ==
[~2019-01-28] VITALS: Ht 165.1 cm; Wt 52.2 kg
--- NOTE | 2019-01-28 15:24 | NUR ---
Pt ambulatory to ED from home. c/o low back pain started today fell in shower 11/15 no deformity noted. blood in urine started 2 days ago, no dysuria, no diff urinating. vss. ERMD at bedside for eval plan for labs/pain meds. call grimm in reach.
[2019-01-28] MEDS ORDERED: ONDANSETRON ODT 4 MG PO ONE (15:30)
[2019-01-28] MEDS ORDERED: HYDROmorphone 1 MG/ML, 1ML INJ IM ONE (15:30)
[2019-01-28] MEDS ORDERED: HYDROmorphone 1 MG/ML, 1ML INJ ONE (15:35)
[2019-01-28 15:39] VITALS: BP 142/79
--- NOTE | 2019-01-28 15:40 | NUR ---
lab done, meds per mar, refused zofran. given urinal, awaiting ua.
--- NOTE | 2019-01-28 15:55 | NUR ---
ua sent, pt to xr.
[2019-01-28 15:58] LABS: ALANINE AMINOTRANSFERASE 50 U/L (12-78); ALBUMIN 4.2 g/dL (3.4-5.0); ANION GAP 6 mmol/L (5-15); CHLORIDE 110 mmol/L (98-107); CREATININE 0.71 mg/dL (0.7-1.3)
[2019-01-28 16:00] LABS: ALKALINE PHOSPHATASE 110 U/L (45-117); BILIRUBIN,TOTAL 5.9 mg/dL (0.2-1.0); TOTAL PROTEIN 7.1 g/dL (6.4-8.2)
[2019-01-28 16:04] LABS: MICROSCOPIC NOT IND
[2019-01-28 16:08] LABS: CULTURE INDICATED? NO
--- NOTE | 2019-01-28 16:12 | NUR ---
back from xr. as
[2019-01-28 16:18] LABS: MEAN CORPUSCULAR HEMOGLOBIN 33.3 pg (27.5-34.5); MEAN CORPUSCULAR HGB CONC 32.1 g/dL (33.2-36.2); MEAN CORPUSCULAR VOLUME 103.7 fL (81-97); PLATELET COUNT 465 x10^3/uL (130-400); RED BLOOD COUNT 2.95 x10^6/uL (4.38-5.82); RED CELL DISTRIBUTION WIDTH 25.8 % (9.4-14.8)
[2019-01-28 16:33] LABS: MD YES
[2019-01-28 16:36] LABS: EOS#(MANUAL) 1.06 x10^3/uL (0.0-0.4); EOS% (MANUAL) 8 % (1-7); LYMPH#(MANUAL) 7.71 x10^3/uL (1-3.4); LYMPHS% (MANUAL) 58 % (22-44); MONOS#(MANUAL) 1.06 x10^3/uL (0.3-2.7); MONOS% (MANUAL) 8 % (2-9); NRBC % (MANUAL) 11 % (0-1); SEG#(MANUAL) 3.46 x10^3/uL (1.8-6.8); SEGS% (MANUAL) 26 % (42-75)
[2019-01-28 16:37] LABS: ANISOCYTOSIS 2+; CRENATED 1+; OVALOCYTES 1+; POLYCHROMASIA 3+; SCHISTOCYTES 1+; SPHEROCYTES 1+; TARGET CELLS 1+; TEAR DROPS 1+
[2019-01-28 16:38] LABS: <PLATELET ESTIMATE> ADEQUATE; <PLT MORPHOLOGY> NORMAL PLT MORPH
--- NOTE | 2019-01-28 16:52 | NUR ---
PT LEFT WITHOUT D/C PAPER WORK.
== END 2019-01-28 16:54 | disposition home or self-care (01) ==
LOC: ED 16:48
DX: S39.012A Strain of muscle, fascia and tendon of lower back, initial encounter (principal); R10.13 Epigastric pain; I10 Essential (primary) hypertension; R31.9 Hematuria, unspecified; R50.9 Fever, unspecified; F17.200 Nicotine dependence, unspecified, uncomplicated; Z90.49 Acquired absence of other specified parts of digestive tract; Z90.81 Acquired absence of spleen; Z72.9 Problem related to lifestyle, unspecified; W01.0XXA Fall on same level from slipping, tripping and stumbling without subsequent striking against object, initial encounter; Y93.89 Activity, other specified; Y92.89 Other specified places as the place of occurrence of the external cause; Y99.8 Other external cause status
CPT/HCPCS: 36415; 72110; 80053; 81003; 83690; 85025; 96372; 99284; J1170

== ENCOUNTER 2019-02-17 22:26 | Inpatient (IN) | payer MEDICAID ==
[~2019-02-17] VITALS: Ht 165.1 cm; Wt 53.7 kg
--- NOTE | 2019-02-17 22:58 | NUR ---
C/O 'FEVERS' BLOOD IN URINE, NASAL CONGESTION, N/V/D FOR SEVERAL DAYS. PT STATES HE HAS A PORT THAT DOESNT WORK
--- NOTE | 2019-02-17 23:00 | NUR ---
ER MD AMARAL IN TO ASSESS PT
[2019-02-17 23:41] LABS: ALANINE AMINOTRANSFERASE 44 U/L (12-78); ALBUMIN 4.4 g/dL (3.4-5.0); ANION GAP 9 mmol/L (5-15); CALCIUM 9.1 mg/dL (8.5-10.1); CHLORIDE 109 mmol/L (98-107)
[2019-02-17 23:43] LABS: ALKALINE PHOSPHATASE 133 U/L (45-117); BILIRUBIN,TOTAL 7.7 mg/dL (0.2-1.0); TOTAL PROTEIN 7.7 g/dL (6.4-8.2)
--- NOTE | 2019-02-17 23:45 | NUR ---
ATTEMPTING TO GET IV ACCESS WITH DIFFICULTY
[2019-02-17 23:50] LABS: INTERNATIONAL NORMALIZED RATIO 1.07 (0.93-1.1); PROTHROMBIN TIME 11.3 Seconds (9.6-11.5)
[2019-02-17 23:51] LABS: MICROSCOPIC INDICATED
[2019-02-17 23:52] LABS: MD YES; MEAN CORPUSCULAR HEMOGLOBIN 32.4 pg (27.5-34.5); MEAN CORPUSCULAR HGB CONC 31.5 g/dL (33.2-36.2); MEAN PLATELET VOLUME 7.7 fL (7.4-10.4); PLATELET COUNT 515 x10^3/uL (130-400); RED BLOOD COUNT 2.61 x10^6/uL (4.38-5.82)
[2019-02-17 23:53] LABS: CULTURE INDICATED? YES
[2019-02-17 23:55] LABS: BASOS#(MANUAL) 0.36 x10^3/uL (0-0.1); BASOS% (MANUAL) 1 % (0-1); EOS#(MANUAL) 0.72 x10^3/uL (0.0-0.4); EOS% (MANUAL) 2 % (1-7); LYMPH#(MANUAL) 5.78 x10^3/uL (1-3.4); LYMPHS% (MANUAL) 16 % (22-44); MONOS#(MANUAL) 1.44 x10^3/uL (0.3-2.7); MONOS% (MANUAL) 4 % (2-9); NRBC % (MANUAL) 27 % (0-1); SEGS% (MANUAL) 77 % (42-75)
[2019-02-17 23:56] LABS: ANISOCYTOSIS 2+; POLYCHROMASIA 3+
[2019-02-17 23:57] LABS: CRENATED 1+; OVALOCYTES 1+; SCHISTOCYTES 1+; SPHEROCYTES 1+; TARGET CELLS 1+
[2019-02-17 23:59] LABS: <PLATELET ESTIMATE> INCREASED; <PLT MORPHOLOGY> NORMAL PLT MORPH; TEAR DROPS 1+
--- NOTE | 2019-02-18 00:08 | NUR ---
PIV PLACED IN PT.
[2019-02-18] MEDS ORDERED: HYDROmorphone 1 MG/ML, 1ML INJ ONE ×3 (00:13→02:52)
[2019-02-18] MEDS: HYDROmorphone 1 MG/ML, 1ML INJ IVPush PRN ×2 (00:15→01:17)
--- NOTE | 2019-02-18 00:16 | NUR ---
PT MEDICATED PER EMAR.
[2019-02-18] MEDS ORDERED: VANCOMYCIN PER PHARMACY MC PRN ×2 (00:30→03:00)
[2019-02-18] MEDS ORDERED: PIPERACILLIN/TAZO/PMX 3.375GM 50 ML IV ONE (00:30)
[2019-02-18] MEDS ORDERED: SODIUM CHLORIDE 0.9% 1,000ML IVBOLUS ONE (00:30)
[2019-02-18] MEDS ORDERED: PIPERACILLIN/TAZO/PMX 3.375GM 50 ML ONE (00:33)
[2019-02-18] MEDS ORDERED: VANCOMYCIN PMX 1GM/200ML 200 ML IV ONE (01:00)
[2019-02-18] MEDS ORDERED: DIPHENHYDRAMINE 50 MG/ML, 1ML ONE (01:08)
[2019-02-18] MEDS ORDERED: DIPHENHYDRAMINE 50 MG/ML, 1ML IVPush ONE (01:30)
--- NOTE | 2019-02-18 01:50 | NUR ---
PT REPORTS PAIN HAS IMPORVED FROM 'OVER A 10/10' TO A 7/10 AND PT IS COMFORTABLE WITH THAT
[2019-02-18] MEDS ORDERED: SODIUM CHLORIDE 0.9% 1,000 ML IV ONE (02:30)
[2019-02-18] MEDS ORDERED: SODIUM CHLORIDE 0.9% 1,000 ML IV SCH (02:45)
--- NOTE | 2019-02-18 02:45 | NUR ---
REPORT TO NELDA VERDE
[2019-02-18] MEDS ORDERED: PROMETHAZINE 25 MG/ML, 1ML IM PRN (03:00)
[2019-02-18] MEDS ORDERED: METRONIDAZOLE PMX 500MG/100ML 100 ML IV SCH (03:00)
[2019-02-18] MEDS ORDERED: hydrALAzine 20 MG/ML, 1ML IVPush PRN (03:00)
[2019-02-18] MEDS ORDERED: ONDANSETRON ODT 4 MG PO PRN (03:00)
[2019-02-18] MEDS ORDERED: POTASSIUM CHLORIDE 40 MEQ in SODIUM CHLORIDE 0.9% 500 ML IV ONE (03:00)
[2019-02-18] MEDS: HYDROmorphone 2 MG/ML, 1ML IVPush PRN ×2 (03:00→05:51)
[2019-02-18] MEDS ORDERED: BISACODYL 10 MG SUPP PR PRN (03:00)
[2019-02-18] MEDS ORDERED: ONDANSETRON 2MG/ML, 2ML IVPush PRN (03:00)
[2019-02-18] MEDS ORDERED: DOCUSATE 100 MG CAPSULE PO PRN (03:00)
[2019-02-18] MEDS ORDERED: POLYETHYLENE GLYCOL 17 GM PACKET PO PRN (03:00)
[2019-02-18] MEDS ORDERED: DIPHENHYDRAMINE 25 MG CAPSULE PO PRN (03:00)
[2019-02-18 03:15] LABS: FREE T4 (FREE THYROXINE) 1.07 ng/dL (0.76-1.46)
[2019-02-18 03:31] VITALS: BP 131/82
[2019-02-18] MEDS ORDERED: PHARMACOKINETIC MONITORING MC PRN (04:00)
[2019-02-18] MEDS ORDERED: CEFEPIME 1 GM in DEXTROSE 5% 50 ML IV SCH (04:00)
[2019-02-18] MEDS: OXYcodone IR 5MG TABLET PO PRN ×4 (04:43→21:29)
[2019-02-18] MEDS: HEPARIN 5,000 UNITS/ML, 1ML SQ SCH ×3 (04:50→21:30)
[2019-02-18 05:23] LABS: RAPID INFLUENZA A Negative (Negative); RAPID INFLUENZA B Negative (Negative)
[2019-02-18 05:45] VITALS: BP 109/65
[2019-02-18 07:55] VITALS: BP 115/67
[2019-02-18] MEDS: MULTIVITAMIN 1 TABLET PO SCH (09:09)
[2019-02-18] MEDS: FOLIC ACID 1 MG TABLET PO SCH (09:09)
[2019-02-18 09:32] LABS: CLOSTRIDIUM DIFFICILE ANTIGEN NEGATIVE; CLOSTRIDIUM DIFFICILE TOXIN NEGATIVE (Negative)
[2019-02-18] MEDS: PIPERACILLIN/TAZO/PMX 3.375GM 50 ML IV SCH ×2 (12:16→18:28)
[2019-02-18] MEDS ORDERED: HYDROmorphone 2 MG/ML, 1ML ONE ×2 (12:59→18:20)
[2019-02-18 13:00] VITALS: BP 115/63
[2019-02-18] MEDS ORDERED: HYDROmorphone 1 MG/ML, 1ML INJ IM PRN (13:00)
[2019-02-18] MEDS: HYDROmorphone 1 MG/ML, 1ML INJ IV PRN ×2 (13:04→18:27)
[2019-02-18] MEDS: POTASSIUM CHLORIDE 20 MEQ TAB.ER.PRT PO SCH (18:27)
[2019-02-18 20:22] VITALS: BP 111/64
[2019-02-18] MEDS: ACETAMINOPHEN 325 MG TABLET PO PRN (22:27)
[2019-02-19] VITALS (8 sets, daily range): BP systolic 99–121; BP diastolic 58–75
[2019-02-19] MEDS ORDERED: HYDROmorphone 2 MG/ML, 1ML ONE ×2 (00:01→06:23)
[2019-02-19] MEDS: ALPRazolam 1MG TAB PO PRN ×2 (00:17→23:37)
[2019-02-19] MEDS: HYDROmorphone 1 MG/ML, 1ML INJ IV PRN ×2 (00:18→06:28)
[2019-02-19] MEDS: PIPERACILLIN/TAZO/PMX 3.375GM 50 ML IV SCH ×4 (00:22→19:45)
[2019-02-19] MEDS: OXYcodone IR 5MG TABLET PO PRN ×3 (01:31→21:26)
[2019-02-19 05:25] LABS: CHLORIDE 111 mmol/L (98-107)
[2019-02-19 05:32] LABS: ALANINE AMINOTRANSFERASE 41 U/L (12-78); ALBUMIN 3.4 g/dL (3.4-5.0); ALKALINE PHOSPHATASE 107 U/L (45-117); ANION GAP 7 mmol/L (5-15); BILIRUBIN,TOTAL 4.7 mg/dL (0.2-1.0); CHOL/HDL RATIO 5.9; CHOLESTEROL, TOTAL 53 mg/dL (140-239); CREATININE 0.77 mg/dL (0.7-1.3); HDL CHOL % 17 % (26-37); HDL CHOLESTEROL (DIRECT) 9 mg/dL (40-60); TOTAL PROTEIN 6.2 g/dL (6.4-8.2); TRIGLYCERIDES 326 mg/dL (50-200); VLDL CHOLESTEROL 65 mg/dL (0-25)
[2019-02-19 05:33] LABS: LDL CHOLESTEROL,CALCULATED < 5 mg/dL (54-169); LDL/HDL RATIO 0.6 (0.5-3.0)
[2019-02-19] MEDS: HEPARIN 5,000 UNITS/ML, 1ML SQ SCH (05:36)
[2019-02-19] MEDS: ACETAMINOPHEN 325 MG TABLET PO PRN (05:37)
[2019-02-19 06:18] LABS: MD YES; MEAN CORPUSCULAR VOLUME 103.3 fL (81-97); MEAN PLATELET VOLUME 8.4 fL (7.4-10.4); PLATELET COUNT 420 x10^3/uL (130-400); RED BLOOD COUNT 2.11 x10^6/uL (4.38-5.82); RED CELL DISTRIBUTION WIDTH 30.5 % (9.4-14.8)
[2019-02-19 06:20] LABS: LYMPH#(MANUAL) 9.43 x10^3/uL (1-3.4); LYMPHS% (MANUAL) 41 % (22-44); NRBC % (MANUAL) 28 % (0-1); SEG#(MANUAL) 10.81 x10^3/uL (1.8-6.8); SEGS% (MANUAL) 47 % (42-75)
[2019-02-19 06:21] LABS: ANISOCYTOSIS 2+; EOS#(MANUAL) 0.92 x10^3/uL (0.0-0.4); EOS% (MANUAL) 4 % (1-7); MONOS#(MANUAL) 1.84 x10^3/uL (0.3-2.7); MONOS% (MANUAL) 8 % (2-9); POLYCHROMASIA 3+
[2019-02-19 06:22] LABS: TARGET CELLS 1+
[2019-02-19 06:23] LABS: CRENATED 1+; OVALOCYTES 1+; SPHEROCYTES 1+
[2019-02-19 06:24] LABS: HOWELL-JOLLY BODIES 1+; SMUDGE CELLS 1+
[2019-02-19 06:25] LABS: <PLATELET ESTIMATE> INCREASED; <PLT MORPHOLOGY> NORMAL PLT MORPH
[2019-02-19] MEDS: MULTIVITAMIN 1 TABLET PO SCH (08:19)
[2019-02-19] MEDS: FOLIC ACID 1 MG TABLET PO SCH (08:19)
[2019-02-19] MEDS: POTASSIUM CHLORIDE 20 MEQ TAB.ER.PRT PO SCH ×2 (08:19→16:23)
[2019-02-19] MEDS ORDERED: DIPHENHYDRAMINE 50 MG/ML, 1ML IVPush ONE ×2 (09:00→16:30)
[2019-02-19] MEDS ORDERED: HYDROmorphone 2 MG/ML, 1ML IV PRN (09:00)
[2019-02-19] MEDS: VANCOMYCIN PMX 1GM/200ML 200 ML IV SCH ×2 (10:27→22:23)
[2019-02-19] MEDS: HYDROmorphone 2 MG/ML, 1ML IV PRN ×4 (13:21→22:29)
[2019-02-19 18:05] LABS: MD YES; MEAN CORPUSCULAR HEMOGLOBIN 30.8 pg (27.5-34.5); MEAN CORPUSCULAR HGB CONC 32.1 g/dL (33.2-36.2); MEAN CORPUSCULAR VOLUME 96.1 fL (81-97); MEAN PLATELET VOLUME 8.1 fL (7.4-10.4); PLATELET COUNT 379 x10^3/uL (130-400); RED BLOOD COUNT 2.59 x10^6/uL (4.38-5.82); RED CELL DISTRIBUTION WIDTH 31.3 % (9.4-14.8)
[2019-02-19 18:12] LABS: BASOS% (MANUAL) 3 % (0-1); EOS#(MANUAL) 0.67 x10^3/uL (0.0-0.4); EOS% (MANUAL) 5 % (1-7); LYMPH#(MANUAL) 4.26 x10^3/uL (1-3.4); LYMPHS% (MANUAL) 32 % (22-44); MONOS#(MANUAL) 0.93 x10^3/uL (0.3-2.7); MONOS% (MANUAL) 7 % (2-9); NRBC % (MANUAL) 19 % (0-1); SEG#(MANUAL) 7.05 x10^3/uL (1.8-6.8); SEGS% (MANUAL) 53 % (42-75)
[2019-02-19 18:13] LABS: ANISOCYTOSIS 2+; OVALOCYTES 1+; POLYCHROMASIA 2+; SPHEROCYTES 1+
[2019-02-19 18:14] LABS: <PLATELET ESTIMATE> ADEQUATE; <PLT MORPHOLOGY> NORMAL PLT MORPH; CRENATED 1+; HOWELL-JOLLY BODIES 1+; TARGET CELLS 1+
[2019-02-20 00:30] VITALS: BP 109/67
[2019-02-20] MEDS: HYDROmorphone 2 MG/ML, 1ML IV PRN ×8 (01:22→22:27)
[2019-02-20] MEDS: PIPERACILLIN/TAZO/PMX 3.375GM 50 ML IV SCH ×2 (01:23→07:23)
[2019-02-20] MEDS: OXYcodone IR 5MG TABLET PO PRN ×4 (02:10→20:46)
[2019-02-20 04:17] VITALS: BP 111/62
[2019-02-20 06:34] LABS: ALBUMIN 3.4 g/dL (3.4-5.0); ANION GAP 5 mmol/L (5-15); CALCIUM 8.4 mg/dL (8.5-10.1); CHLORIDE 112 mmol/L (98-107)
[2019-02-20 06:38] LABS: ALANINE AMINOTRANSFERASE 53 U/L (12-78); ALKALINE PHOSPHATASE 92 U/L (45-117); CREATININE 0.59 mg/dL (0.7-1.3); TOTAL PROTEIN 6.4 g/dL (6.4-8.2)
[2019-02-20 07:19] LABS: MEAN CORPUSCULAR HEMOGLOBIN 30.8 pg (27.5-34.5); MEAN CORPUSCULAR VOLUME 96.4 fL (81-97); PLATELET COUNT 377 x10^3/uL (130-400); RED BLOOD COUNT 2.63 x10^6/uL (4.38-5.82)
[2019-02-20 07:20] LABS: MD YES
[2019-02-20] MEDS: MULTIVITAMIN 1 TABLET PO SCH (07:23)
[2019-02-20] MEDS: FOLIC ACID 1 MG TABLET PO SCH (07:23)
[2019-02-20] MEDS: POTASSIUM CHLORIDE 20 MEQ TAB.ER.PRT PO SCH (07:23)
[2019-02-20 07:24] LABS: EOS#(MANUAL) 1.38 x10^3/uL (0.0-0.4); EOS% (MANUAL) 10 % (1-7)
[2019-02-20 07:57] LABS: BASOS#(MANUAL) 0.14 x10^3/uL (0-0.1); BASOS% (MANUAL) 1 % (0-1); LYMPH#(MANUAL) 6.49 x10^3/uL (1-3.4); LYMPHS% (MANUAL) 47 % (22-44); MONOS#(MANUAL) 1.24 x10^3/uL (0.3-2.7); MONOS% (MANUAL) 9 % (2-9); NRBC % (MANUAL) 39 % (0-1)
[2019-02-20 07:59] LABS: BAND#(MANUAL) 0.14 x10^3/uL; BANDS%(MANUAL) 1 % (0-7); SEG#(MANUAL) 4.42 x10^3/uL (1.8-6.8); SEGS% (MANUAL) 32 % (42-75)
[2019-02-20 08:00] LABS: HYPOCHROMIA 1+
[2019-02-20 08:01] LABS: POLYCHROMASIA 2+
[2019-02-20 08:02] LABS: ANISOCYTOSIS 3+
[2019-02-20 08:03] VITALS: BP 93/52
[2019-02-20 08:03] LABS: TARGET CELLS 1+
[2019-02-20 08:04] LABS: <PLATELET ESTIMATE> ADEQUATE; <PLT MORPHOLOGY> NORMAL PLT MORPH; HOWELL-JOLLY BODIES 1+
[2019-02-20 08:05] LABS: SPHEROCYTES 1+
[2019-02-20] MEDS: CEFTRIAXONE PMX 1GM/50ML 50 ML IV SCH (09:10)
[2019-02-20] MEDS: DOXYCYCLINE 100 MG in DEXTROSE 5% 250 ML IV SCH ×3 (09:44→22:07)
[2019-02-20 13:45] VITALS: BP 98/57
[2019-02-20] MEDS ORDERED: LOPERAMIDE 2 MG CAPSULE PO PRN (15:00)
[2019-02-20 19:19] VITALS: BP 108/63
[2019-02-20] MEDS: ALPRazolam 1MG TAB PO PRN (23:33)
[2019-02-21 00:42] VITALS: BP 112/65
[2019-02-21] MEDS: HYDROmorphone 2 MG/ML, 1ML IV PRN ×7 (01:32→22:46)
[2019-02-21 06:11] LABS: ALANINE AMINOTRANSFERASE 63 U/L (12-78); ALBUMIN 3.3 g/dL (3.4-5.0); ANION GAP 7 mmol/L (5-15); CALCIUM 8.2 mg/dL (8.5-10.1); CHLORIDE 109 mmol/L (98-107)
[2019-02-21 06:14] LABS: ALKALINE PHOSPHATASE 98 U/L (45-117); BILIRUBIN,TOTAL 2.4 mg/dL (0.2-1.0); CREATININE 0.61 mg/dL (0.7-1.3); TOTAL PROTEIN 6.5 g/dL (6.4-8.2)
[2019-02-21 06:18] LABS: MEAN CORPUSCULAR HEMOGLOBIN 30.9 pg (27.5-34.5); MEAN CORPUSCULAR HGB CONC 31.4 g/dL (33.2-36.2); MEAN CORPUSCULAR VOLUME 98.3 fL (81-97); MEAN PLATELET VOLUME 8.1 fL (7.4-10.4); PLATELET COUNT 413 x10^3/uL (130-400); RED BLOOD COUNT 2.83 x10^6/uL (4.38-5.82); RED CELL DISTRIBUTION WIDTH 29.1 % (9.4-14.8)
[2019-02-21 07:07] LABS: MD YES
[2019-02-21 07:09] LABS: BASOS#(MANUAL) 0.24 x10^3/uL (0-0.1); BASOS% (MANUAL) 2 % (0-1); EOS#(MANUAL) 1.44 x10^3/uL (0.0-0.4); EOS% (MANUAL) 12 % (1-7); LYMPHS% (MANUAL) 35 % (22-44); MONOS#(MANUAL) 1.68 x10^3/uL (0.3-2.7); MONOS% (MANUAL) 14 % (2-9); MYELOCYTES# (MANUAL) 0.12 x10^3/uL (0-0); MYELOCYTES% (MANUAL) 1 % (0-0); NRBC % (MANUAL) 34 % (0-1); SEG#(MANUAL) 4.32 x10^3/uL (1.8-6.8); SEGS% (MANUAL) 36 % (42-75)
[2019-02-21 07:10] LABS: <PLATELET ESTIMATE> INCREASED; ANISOCYTOSIS 3+; HOWELL-JOLLY BODIES 1+; HYPOCHROMIA 1+; POLYCHROMASIA 2+; SPHEROCYTES 1+; TARGET CELLS 1+
[2019-02-21 07:12] LABS: GIANT PLATELETS 1+; LARGE PLATELETS 1+
[2019-02-21 07:43] VITALS: BP 111/67
[2019-02-21] MEDS: CEFTRIAXONE PMX 1GM/50ML 50 ML IV SCH (09:56)
[2019-02-21] MEDS: MULTIVITAMIN 1 TABLET PO SCH (09:56)
[2019-02-21] MEDS: FOLIC ACID 1 MG TABLET PO SCH (09:56)
[2019-02-21] MEDS: DOXYCYCLINE 100 MG in DEXTROSE 5% 250 ML IV SCH ×2 (11:05→22:47)
[2019-02-21] MEDS: OXYcodone IR 5MG TABLET PO PRN ×2 (11:13→21:18)
[2019-02-21 15:01] VITALS: BP 103/57
[2019-02-21 20:21] VITALS: BP 114/65
[2019-02-21] MEDS: ALPRazolam 1MG TAB PO PRN (22:46)
[2019-02-22] MEDS: OXYcodone IR 5MG TABLET PO PRN ×2 (00:44→09:21)
[2019-02-22] MEDS: HYDROmorphone 2 MG/ML, 1ML IV PRN ×5 (01:18→20:04)
[2019-02-22 01:48] VITALS: BP 105/62
[2019-02-22 06:46] LABS: ALANINE AMINOTRANSFERASE 78 U/L (12-78); ALBUMIN 3.3 g/dL (3.4-5.0); ANION GAP 9 mmol/L (5-15); CALCIUM 8.6 mg/dL (8.5-10.1); CHLORIDE 111 mmol/L (98-107); CREATININE 0.55 mg/dL (0.7-1.3)
[2019-02-22 06:48] LABS: ALKALINE PHOSPHATASE 104 U/L (45-117); BILIRUBIN,TOTAL 2.5 mg/dL (0.2-1.0); TOTAL PROTEIN 6.8 g/dL (6.4-8.2)
[2019-02-22 07:50] LABS: MD YES
[2019-02-22 07:51] LABS: MEAN CORPUSCULAR HEMOGLOBIN 32.1 pg (27.5-34.5); MEAN CORPUSCULAR HGB CONC 32.5 g/dL (33.2-36.2); MEAN CORPUSCULAR VOLUME 98.9 fL (81-97); MEAN PLATELET VOLUME 7.9 fL (7.4-10.4); PLATELET COUNT 403 x10^3/uL (130-400); RED BLOOD COUNT 2.99 x10^6/uL (4.38-5.82); RED CELL DISTRIBUTION WIDTH 30.9 % (9.4-14.8)
[2019-02-22 07:52] LABS: EOS#(MANUAL) 1.38 x10^3/uL (0.0-0.4); EOS% (MANUAL) 10 % (1-7); LYMPH#(MANUAL) 8.28 x10^3/uL (1-3.4); LYMPHS% (MANUAL) 60 % (22-44); MONOS#(MANUAL) 1.24 x10^3/uL (0.3-2.7); MONOS% (MANUAL) 9 % (2-9); MYELOCYTES# (MANUAL) 0.14 x10^3/uL (0-0); MYELOCYTES% (MANUAL) 1 % (0-0); NRBC % (MANUAL) 22 % (0-1); SEG#(MANUAL) 2.76 x10^3/uL (1.8-6.8); SEGS% (MANUAL) 20 % (42-75)
[2019-02-22 07:53] LABS: <PLATELET ESTIMATE> INCREASED; ANISOCYTOSIS 3+; HOWELL-JOLLY BODIES 1+; HYPOCHROMIA 1+; POLYCHROMASIA 2+; SPHEROCYTES 1+; TARGET CELLS 1+
[2019-02-22 07:55] LABS: LARGE PLATELETS 1+
[2019-02-22] MEDS: FOLIC ACID 1 MG TABLET PO SCH (09:03)
[2019-02-22] MEDS: CEFTRIAXONE PMX 1GM/50ML 50 ML IV SCH (09:03)
[2019-02-22] MEDS: MULTIVITAMIN 1 TABLET PO SCH (09:03)
[2019-02-22 09:11] VITALS: BP 109/66
[2019-02-22] MEDS: DOXYCYCLINE 100 MG in DEXTROSE 5% 250 ML IV SCH ×2 (11:19→13:41)
[2019-02-22 12:51] VITALS: BP 106/64
[2019-02-22] MEDS: OXYcodone/APAP 10/325MG TABLET PO PRN ×2 (17:11→21:54)
[2019-02-22 20:02] VITALS: BP 126/75
[2019-02-23] MEDS: DOXYCYCLINE 100 MG in DEXTROSE 5% 250 ML IV SCH (01:50)
[2019-02-23] MEDS: ALPRazolam 1MG TAB PO PRN ×2 (01:50→22:29)
[2019-02-23] MEDS: HYDROmorphone 2 MG/ML, 1ML IV PRN ×4 (01:50→21:03)
[2019-02-23 02:00] VITALS: BP 111/74
[2019-02-23] MEDS: OXYcodone/APAP 10/325MG TABLET PO PRN ×4 (03:58→22:29)
[2019-02-23 05:53] LABS: ALANINE AMINOTRANSFERASE 73 U/L (12-78); ALBUMIN 3.6 g/dL (3.4-5.0); ANION GAP 6 mmol/L (5-15); CALCIUM 8.8 mg/dL (8.5-10.1); CHLORIDE 110 mmol/L (98-107); CREATININE 0.51 mg/dL (0.7-1.3)
[2019-02-23 05:55] LABS: ALKALINE PHOSPHATASE 100 U/L (45-117); BILIRUBIN,TOTAL 2.5 mg/dL (0.2-1.0); TOTAL PROTEIN 6.9 g/dL (6.4-8.2)
[2019-02-23 06:01] LABS: MEAN CORPUSCULAR HEMOGLOBIN 31.9 pg (27.5-34.5); MEAN CORPUSCULAR HGB CONC 31.7 g/dL (33.2-36.2); MEAN CORPUSCULAR VOLUME 100.7 fL (81-97); MEAN PLATELET VOLUME 8.2 fL (7.4-10.4); PLATELET COUNT 428 x10^3/uL (130-400); RED BLOOD COUNT 3.08 x10^6/uL (4.38-5.82); RED CELL DISTRIBUTION WIDTH 33.7 % (9.4-14.8)
[2019-02-23 06:29] LABS: MD YES
[2019-02-23 06:31] LABS: EOS#(MANUAL) 1.76 x10^3/uL (0.0-0.4); EOS% (MANUAL) 13 % (1-7); HYPOCHROMIA 1+; LYMPH#(MANUAL) 5.67 x10^3/uL (1-3.4); LYMPHS% (MANUAL) 42 % (22-44); METAMYELOCYTES# (MANUAL) 0.27 x10^3/uL (0-0); METAMYELOCYTES% (MANUAL) 2 % (0-1); MONOS#(MANUAL) 1.22 x10^3/uL (0.3-2.7); MONOS% (MANUAL) 9 % (2-9); NRBC % (MANUAL) 15 % (0-1); SEG#(MANUAL) 4.59 x10^3/uL (1.8-6.8); SEGS% (MANUAL) 34 % (42-75)
[2019-02-23 06:32] LABS: ANISOCYTOSIS 2+; HOWELL-JOLLY BODIES 1+; POLYCHROMASIA 2+; TARGET CELLS 1+
[2019-02-23 06:34] LABS: OVALOCYTES 1+; TOXIC GRAN 1+
[2019-02-23 06:35] LABS: <PLATELET ESTIMATE> INCREASED; SPHEROCYTES 1+
[2019-02-23 06:36] LABS: LARGE PLATELETS 1+
[2019-02-23 08:29] VITALS: BP 116/75
[2019-02-23] MEDS: DOXYCYCLINE 100MG TABLET PO SCH ×2 (08:51→21:02)
[2019-02-23] MEDS: MULTIVITAMIN 1 TABLET PO SCH (08:51)
[2019-02-23] MEDS: CEFDINIR 300 MG CAPSULE PO SCH ×2 (08:51→21:02)
[2019-02-23] MEDS: FOLIC ACID 1 MG TABLET PO SCH (08:51)
[2019-02-23 13:56] VITALS: BP 104/69
[2019-02-23 19:21] VITALS: BP 119/68
[2019-02-24 00:37] VITALS: BP 119/72
[2019-02-24] MEDS: HYDROmorphone 2 MG/ML, 1ML IV PRN ×2 (03:03→09:42)
[2019-02-24] MEDS: OXYcodone/APAP 10/325MG TABLET PO PRN ×2 (05:50→12:20)
[2019-02-24 06:20] LABS: ALBUMIN 3.4 g/dL (3.4-5.0); ANION GAP 6 mmol/L (5-15); CALCIUM 8.2 mg/dL (8.5-10.1); CHLORIDE 110 mmol/L (98-107)
[2019-02-24 06:23] LABS: ALANINE AMINOTRANSFERASE 83 U/L (12-78); ALKALINE PHOSPHATASE 103 U/L (45-117); CREATININE 0.53 mg/dL (0.7-1.3); TOTAL PROTEIN 6.7 g/dL (6.4-8.2)
[2019-02-24 06:53] LABS: MEAN CORPUSCULAR HEMOGLOBIN 31.6 pg (27.5-34.5); MEAN CORPUSCULAR VOLUME 102.2 fL (81-97); MEAN PLATELET VOLUME 7.8 fL (7.4-10.4); PLATELET COUNT 481 x10^3/uL (130-400); RED BLOOD COUNT 3.04 x10^6/uL (4.38-5.82); RED CELL DISTRIBUTION WIDTH 32.6 % (9.4-14.8)
[2019-02-24 06:55] LABS: MD YES
[2019-02-24 06:57] LABS: BASOS#(MANUAL) 0.14 x10^3/uL (0-0.1); BASOS% (MANUAL) 1 % (0-1); METAMYELOCYTES# (MANUAL) 0.14 x10^3/uL (0-0); METAMYELOCYTES% (MANUAL) 1 % (0-1); NRBC % (MANUAL) 13 % (0-1)
[2019-02-24 06:58] LABS: ANISOCYTOSIS 2+; EOS#(MANUAL) 1.37 x10^3/uL (0.0-0.4); EOS% (MANUAL) 10 % (1-7); LYMPH#(MANUAL) 6.44 x10^3/uL (1-3.4); LYMPHS% (MANUAL) 47 % (22-44); MICROCYTOSIS 1+; MONOS#(MANUAL) 1.92 x10^3/uL (0.3-2.7); MONOS% (MANUAL) 14 % (2-9); SEGS% (MANUAL) 27 % (42-75)
[2019-02-24 06:59] LABS: HYPOCHROMIA 1+; POLYCHROMASIA 2+; SPHEROCYTES 1+
[2019-02-24 07:01] LABS: OVALOCYTES 1+
[2019-02-24 07:02] LABS: <PLATELET ESTIMATE> INCREASED; HOWELL-JOLLY BODIES 1+; TARGET CELLS 1+
[2019-02-24 07:04] LABS: LARGE PLATELETS 1+
[2019-02-24 07:45] VITALS: BP 103/62
[2019-02-24] MEDS: DOXYCYCLINE 100MG TABLET PO SCH (09:41)
[2019-02-24] MEDS: MULTIVITAMIN 1 TABLET PO SCH (09:41)
[2019-02-24] MEDS: CEFDINIR 300 MG CAPSULE PO SCH (09:41)
[2019-02-24] MEDS: FOLIC ACID 1 MG TABLET PO SCH (09:41)
[2019-02-24] MEDS ORDERED: CEFD300C37 PO (11:33)
[2019-02-24] MEDS ORDERED: ONDA4TAB13 PO (11:33)
[2019-02-24] MEDS ORDERED: DOXY100T PO (11:33)
[2019-02-24 14:17] VITALS: BP 124/74
== END 2019-02-24 14:30 | disposition home or self-care (01) | DRG 720 ==
LOC: ED 23:53 → EDIP 02-18 02:19 → 3N 02-18 03:26 → DCLOUNGE 02-24 14:22
PROVIDERS: ADMIT Internal Medicine; ATTEND Internal Medicine
PROC: 30233N1 Transfusion of Nonautologous Red Blood Cells into Peripheral Vein, Percutaneous Approach (ICD-10-PCS; principal; 2019-02-19)
DX: A41.9 Sepsis, unspecified organism (principal); J18.9 Pneumonia, unspecified organism; K56.7 Ileus, unspecified; N28.1 Cyst of kidney, acquired; R17 Unspecified jaundice; E87.6 Hypokalemia; F17.200 Nicotine dependence, unspecified, uncomplicated; G89.4 Chronic pain syndrome; I10 Essential (primary) hypertension; Z91.013 Allergy to seafood; Z88.8 Allergy status to other drugs, medicaments and biological substances; Z91.018 Allergy to other foods; N12 Tubulo-interstitial nephritis, not specified as acute or chronic; Z76.5 Malingerer [conscious simulation]; Z86.19 Personal history of other infectious and parasitic diseases; Z90.81 Acquired absence of spleen
CPT/HCPCS: 36415; 36430; 71045; 74176; 80053; 80061; 81001; 83036; 83605; 83735; 84145; 84439; 84443; 85025; 85610; 85730; 86850; 86900; 86923; 87040; 87070; 87086; 87205; 87324; 87400; 96365; 96375; 96376; G0378; J0692; J0696; J1170; J1644; J2405; J2543; J3370; J3480; J7060; J1200; J7030; J7040; P9016; Q0163

== ENCOUNTER 2019-04-05 17:26 | Inpatient (IN) | payer MEDICAID ==
[~2019-04-05] VITALS: Ht 165.1 cm; Wt 55.0 kg
[~2019-04-05 17:26] MED LIST changes: +DOXY100T PO; +ONDA4TAB13 PO
--- NOTE | 2019-04-05 17:33 | NUR ---
BREAK RN: PT AMBULATORY WITH STEADY GAIT TO ROOM AT THIS TIME.
--- NOTE | 2019-04-05 17:37 | NUR ---
PT AMBULATORY WITH STEADY GAIT TO BATHROOM FOR SAMPLE AT THIS TIME.
--- NOTE | 2019-04-05 17:42 | NUR ---
TASK RN: 38 y/o male presents to ed with c/o ABD PAIN. "I HAVEN'T BEEN FEELING GOOD FOR A FEW DAYS. I HAVE BLOOD IN MY URINE, MY BELLY HURT AROUND TO MY LOWER BACK. I FEEL THAT I'M GETTING YELLOW TOO. I HAVE BLOOD DISORDER. I SAW A LITTLE BLOOD YESTERDAY WHEN I WIPED YESTERDAY. MY PORT ISN'T WORKING. I TOOK MY PERCOCET AROUND 1230." EDMD BEDSIDE. NO C/O N/V/D, TRAUMA, SYNCOPE, CP, SOB. PT PLACED ON CONTPULSE OX,NIBP.
--- NOTE | 2019-04-05 17:53 | NUR ---
TASK RN: MARIA DEL ROSARIO SENT TO LAB.
[2019-04-05] MEDS ORDERED: HYDROmorphone 1 MG/ML, 1ML INJ IM ONE (18:00)
[2019-04-05] MEDS ORDERED: HYDROmorphone 2 MG/ML, 1ML ONE (18:00)
[2019-04-05 18:02] LABS: MICROSCOPIC NOT IND
[2019-04-05 18:04] LABS: CULTURE INDICATED? NO
--- NOTE | 2019-04-05 18:04 | NUR ---
BEDSIDE REPORT TO NELDA FLYNN
[2019-04-05 18:24] LABS: INTERNATIONAL NORMALIZED RATIO 1.08 (0.93-1.1); PROTHROMBIN TIME 11.5 Seconds (9.6-11.5)
[2019-04-05 18:26] LABS: ALBUMIN 4.3 g/dL (3.4-5.0); ANION GAP 7 mmol/L (5-15); CALCIUM 8.6 mg/dL (8.5-10.1); CHLORIDE 109 mmol/L (98-107); CREATININE 0.71 mg/dL (0.7-1.3)
[2019-04-05 18:28] LABS: ALKALINE PHOSPHATASE 129 U/L (45-117); BILIRUBIN,TOTAL 8.1 mg/dL (0.2-1.0); MD YES; MEAN CORPUSCULAR HEMOGLOBIN 33.8 pg (27.5-34.5); MEAN CORPUSCULAR HGB CONC 33.2 g/dL (33.2-36.2); MEAN CORPUSCULAR VOLUME 101.8 fL (81-97); PLATELET COUNT 494 x10^3/uL (130-400); RED BLOOD COUNT 2.73 x10^6/uL (4.38-5.82); RED CELL DISTRIBUTION WIDTH 32.4 % (9.4-14.8); TOTAL PROTEIN 7.6 g/dL (6.4-8.2)
[2019-04-05 18:29] LABS: ALANINE AMINOTRANSFERASE 65 U/L (12-78)
[2019-04-05 18:43] LABS: ANISOCYTOSIS 2+; BASOS#(MANUAL) 0.85 x10^3/uL (0-0.1); BASOS% (MANUAL) 5 % (0-1); EOS#(MANUAL) 0.85 x10^3/uL (0.0-0.4); EOS% (MANUAL) 5 % (1-7); HYPOCHROMIA 1+; LYMPH#(MANUAL) 8.67 x10^3/uL (1-3.4); LYMPHS% (MANUAL) 51 % (22-44); METAMYELOCYTES# (MANUAL) 0.51 x10^3/uL (0-0); METAMYELOCYTES% (MANUAL) 3 % (0-1); MONOS#(MANUAL) 1.19 x10^3/uL (0.3-2.7); MONOS% (MANUAL) 7 % (2-9); MYELOCYTES# (MANUAL) 0.17 x10^3/uL (0-0); MYELOCYTES% (MANUAL) 1 % (0-0); NRBC % (MANUAL) 16 % (0-1); POLYCHROMASIA 2+; SEG#(MANUAL) 4.76 x10^3/uL (1.8-6.8); SEGS% (MANUAL) 28 % (42-75)
[2019-04-05 18:44] LABS: HOWELL-JOLLY BODIES 1+; OVALOCYTES 1+; SPHEROCYTES 1+; TARGET CELLS 1+
[2019-04-05 18:45] LABS: <PLATELET ESTIMATE> INCREASED; LARGE PLATELETS 1+
--- NOTE | 2019-04-05 19:03 | NUR ---
PT REPORTS PAIN IMPROVEMENT.
[2019-04-05] MEDS ORDERED: FENTANYL PF 100 MCG/2ML ONE (19:22)
[2019-04-05] MEDS ORDERED: OXYcodone 5 MG/5 ML ORAL.SOL UDC ONE (19:23)
[2019-04-05] MEDS ORDERED: HYDROmorphone 1 MG/ML, 1ML INJ ONE ×2 (19:23→20:46)
[2019-04-05] MEDS ORDERED: SODIUM CHLORIDE FLUSH 10ML SYR IVF ONE (20:00)
[2019-04-05] MEDS ORDERED: SODIUM CHLORIDE 0.9% 1,000ML IVBOLUS ONE (20:00)
[2019-04-05] MEDS ORDERED: HYDROmorphone 2 MG/ML, 1ML IVPush PRN (20:30)
--- NOTE | 2019-04-05 20:54 | NUR ---
PRCEPTOR NOTE: TWO IV'S STARTED PER PT PREFERENCE IN THE LEFT AND RIGHT LOWER LEG. SECOND IV STARTED PER PT PREFERENCE AND REQUEST TO IV FAILING FREQUENTLY. PT REFUSED IV IN HIS NECK OTHER THAN SAME SIDE POWER PORT WAS PLACED, WHICH "HAS NOT WORKED IN TWO WEEKS" PER PT. PT REPORTS HE HAS NO VEINS IN ARMS OR LEGS AND THEY ARE NOT ABLE TO "GET IV WITH ULTRASOUND."
[2019-04-05] MEDS ORDERED: PROMETHAZINE 25 MG/ML, 1ML IM PRN (21:00)
[2019-04-05] MEDS ORDERED: METOCLOPRAMIDE 5 MG/ML, 2ML IVPush PRN (21:00)
[2019-04-05] MEDS ORDERED: ONDANSETRON 2MG/ML, 2ML IVPush PRN (21:00)
[2019-04-05] MEDS: BISACODYL 10 MG SUPP PR SCH (21:00)
[2019-04-05] MEDS ORDERED: ENOXAPARIN 40 MG/0.4 ML SQ SCH (21:00)
[2019-04-05] MEDS: SODIUM CHLORIDE 0.9% 1,000 ML IV SCH (22:39)
[2019-04-05] MEDS: HYDROmorphone 2 MG/ML, 1ML IVPush PRN (22:58)
[2019-04-05] MEDS: DIPHENHYDRAMINE 50 MG/ML, 1ML IVPush PRN (23:25)
[2019-04-06] MEDS: LORazepam 2 MG/ML, 1ML IVPush PRN ×2 (00:28→09:22)
[2019-04-06 00:37] VITALS: BP 112/63
[2019-04-06] MEDS: HYDROmorphone 2 MG/ML, 1ML IVPush PRN ×3 (02:05→08:19)
[2019-04-06] MEDS: SODIUM CHLORIDE 0.9% 1,000 ML IV SCH (04:57)
[2019-04-06] MEDS: DIPHENHYDRAMINE 50 MG/ML, 1ML IVPush PRN (05:11)
[2019-04-06 05:28] LABS: CHLORIDE 111 mmol/L (98-107)
[2019-04-06 05:33] LABS: MEAN CORPUSCULAR HEMOGLOBIN 32.9 pg (27.5-34.5); MEAN CORPUSCULAR HGB CONC 31.8 g/dL (33.2-36.2); MEAN CORPUSCULAR VOLUME 103.5 fL (81-97); MEAN PLATELET VOLUME 8.1 fL (7.4-10.4); PLATELET COUNT 457 x10^3/uL (130-400); RED BLOOD COUNT 2.66 x10^6/uL (4.38-5.82)
[2019-04-06 06:06] LABS: ALANINE AMINOTRANSFERASE 69 U/L (12-78); ALBUMIN 4.2 g/dL (3.4-5.0); ALKALINE PHOSPHATASE 119 U/L (45-117); ANION GAP 5 mmol/L (5-15); BILIRUBIN,TOTAL 6.8 mg/dL (0.2-1.0); CALCIUM 8.4 mg/dL (8.5-10.1); CREATININE 0.69 mg/dL (0.7-1.3)
[2019-04-06 06:10] LABS: MD YES
[2019-04-06 06:12] LABS: EOS#(MANUAL) 0.76 x10^3/uL (0.0-0.4); EOS% (MANUAL) 5 % (1-7); MONOS#(MANUAL) 1.66 x10^3/uL (0.3-2.7); MONOS% (MANUAL) 11 % (2-9); NRBC % (MANUAL) 8 % (0-1)
[2019-04-06 06:13] LABS: ANISOCYTOSIS 2+; HYPOCHROMIA 1+; LYMPH#(MANUAL) 8.91 x10^3/uL (1-3.4); LYMPHS% (MANUAL) 59 % (22-44); OVALOCYTES 1+; POLYCHROMASIA 2+; SEG#(MANUAL) 3.78 x10^3/uL (1.8-6.8); SEGS% (MANUAL) 25 % (42-75)
[2019-04-06 06:14] LABS: <PLATELET ESTIMATE> INCREASED; HOWELL-JOLLY BODIES 1+; SPHEROCYTES 1+; TARGET CELLS 1+
[2019-04-06 06:15] LABS: LARGE PLATELETS 1+
[2019-04-06 08:30] VITALS: BP 100/61
[2019-04-06] MEDS: BISACODYL 10 MG SUPP PR SCH (10:29)
== END 2019-04-06 11:59 | disposition left against medical advice (07) | DRG 720 ==
LOC: ED 20:33 → SUATTDRO 20:34 → EDIP 21:09 → 3N 21:25
PROVIDERS: ADMIT Internal Medicine; ATTEND Internal Medicine
DX: A41.9 Sepsis, unspecified organism (principal); K72.00 Acute and subacute hepatic failure without coma; D57.00 Hb-SS disease with crisis, unspecified; K56.600 Partial intestinal obstruction, unspecified as to cause; A04.72 Enterocolitis due to Clostridium difficile, not specified as recurrent; J18.9 Pneumonia, unspecified organism; F11.20 Opioid dependence, uncomplicated; B19.20 Unspecified viral hepatitis C without hepatic coma; D53.9 Nutritional anemia, unspecified; D72.820 Lymphocytosis (symptomatic); E87.6 Hypokalemia; F12.10 Cannabis abuse, uncomplicated; F17.210 Nicotine dependence, cigarettes, uncomplicated; G89.29 Other chronic pain; F41.9 Anxiety disorder, unspecified; N39.0 Urinary tract infection, site not specified; D72.829 Elevated white blood cell count, unspecified; I10 Essential (primary) hypertension; Z82.49 Family history of ischemic heart disease and other diseases of the circulatory system; Z80.0 Family history of malignant neoplasm of digestive organs; Z86.19 Personal history of other infectious and parasitic diseases; Z90.49 Acquired absence of other specified parts of digestive tract; Z90.81 Acquired absence of spleen
CPT/HCPCS: 36415; 74176; 80053; 81003; 82607; 83605; 83690; 83735; 84100; 84443; 85025; 85610; 86850; 86900; 87040; 96361; 96372; 96374; G0378; J1170; J1650; J1200; J2060; J7030

== ENCOUNTER 2019-04-06 13:49 | Inpatient (IN) | payer MEDICAID ==
[~2019-04-06] VITALS: Ht 165.1 cm; Wt 57.0 kg
--- NOTE | 2019-04-06 14:52 | NUR ---
THIS IS A 38 YO M W/ C/O ABD PAIN X4 DAYS. PT WAS DC FROM THIS FACILITY, STAFF BELIEVED PT HAD ELOPED. PT STATES HE WAS STANDING OUTSIDE ROOM WHEN NURSE CAME OVER AND PULLED IVS OUT. PT REPORTS THAT HE HAD A SURGERY CONSULT FOR A SBO. VS STABLE. PT IS RESTING ON GURNEY W/ CALL LIGHT IN REACH. DENIES FURTHER NEEDS AT THIS TIME.
--- NOTE | 2019-04-06 14:53 | NUR ---
VIET LUTZ IN ROOM TO START PIV.
--- NOTE | 2019-04-06 15:34 | NUR ---
PT RE PAIN MEDS, NOTIFIED. NO NEW ORDERS AT THIS TIME.
[2019-04-06] MEDS: SODIUM CHLORIDE 0.9% 1,000 ML IV SCH ×2 (16:11→17:57)
--- NOTE | 2019-04-06 16:27 | NUR ---
PT REQ PAIN MEDS, OFFERED TYLENOL ORDERED. PT REFUSED. PT REFUSING ALL SCHEDULED MEDS. PT STATES HE WILL NOT TAKE ANYTHING OR LET ME START IVF UNTIL HE SPEAKS W/ THE DOCTOR. PT WANTS TO KNOW WHY HE CAN'T HAVE DILAUDID FOR PAIN WHEN THAT'S WHAT WAS ORDERED THIS MORNING. PT ALSO STATES HE DOES NOT WANT TO BE ADMITTED TO THE 3RD FLOOR. WILL CALL TO UPDATE.
[2019-04-06] MEDS ORDERED: DIPHENHYDRAMINE 25 MG CAPSULE PO ONE (16:30)
[2019-04-06] MEDS ORDERED: PINK LADY ENEMA 490 ML BOTTLE PR SCH (16:30)
[2019-04-06] MEDS: HEPARIN 5,000 UNITS/ML, 1ML SQ SCH (16:30)
[2019-04-06] MEDS ORDERED: hydrALAzine 20 MG/ML, 1ML IVPush PRN (16:30)
[2019-04-06] MEDS ORDERED: LABETALOL 5MG/ML, 20ML IVPush PRN (16:30)
[2019-04-06] MEDS ORDERED: ACETAMINOPHEN 325 MG TABLET PO PRN (16:30)
[2019-04-06] MEDS ORDERED: ONDANSETRON 2MG/ML, 2ML IVPush PRN (16:30)
--- NOTE | 2019-04-06 16:30 | NUR ---
TELEPHONE CALL TO . STATES HE WILL SPEAK W/ PT TO COME UP W/ POC.
--- NOTE | 2019-04-06 16:35 | NUR ---
PER HE NOTIFIED PT HE WOULD START RECEIVING DILAUDID UPSTAIRS.
--- NOTE | 2019-04-06 16:40 | NUR ---
REPORT GIVEN TO SHABNAM LUTZ. PT IS READY FOR TRANSPORT.
[2019-04-06] MEDS: DIPHENHYDRAMINE 50 MG/ML, 1ML IVPush PRN (17:50)
[2019-04-06] MEDS: HYDROmorphone 2 MG/ML, 1ML IVPush PRN ×2 (17:51→21:10)
[2019-04-06 19:42] VITALS: BP 115/72
[2019-04-06] MEDS: LORazepam 2 MG/ML, 1ML IVPush PRN (19:52)
[2019-04-07] MEDS: HEPARIN 5,000 UNITS/ML, 1ML SQ SCH ×2 (00:09→08:25)
[2019-04-07] MEDS: DIPHENHYDRAMINE 50 MG/ML, 1ML IVPush PRN ×5 (00:10→23:59)
[2019-04-07] MEDS: HYDROmorphone 2 MG/ML, 1ML IVPush PRN ×9 (00:10→23:59)
[2019-04-07 01:53] VITALS: BP 115/68
[2019-04-07] MEDS: SODIUM CHLORIDE 0.9% 1,000 ML IV SCH ×2 (03:05→12:10)
[2019-04-07] MEDS: LORazepam 2 MG/ML, 1ML IVPush PRN ×2 (04:13→10:29)
[2019-04-07 06:00] LABS: CALCIUM 8.5 mg/dL (8.5-10.1); CHLORIDE 112 mmol/L (98-107)
[2019-04-07 06:07] LABS: ALANINE AMINOTRANSFERASE 57 U/L (12-78); ALBUMIN 4.1 g/dL (3.4-5.0); ALKALINE PHOSPHATASE 116 U/L (45-117); ANION GAP 7 mmol/L (5-15); BILIRUBIN,TOTAL 7.3 mg/dL (0.2-1.0); CREATININE 0.55 mg/dL (0.7-1.3); TOTAL PROTEIN 6.7 g/dL (6.4-8.2)
[2019-04-07 06:20] LABS: MD YES; MEAN CORPUSCULAR HEMOGLOBIN 33.1 pg (27.5-34.5); MEAN CORPUSCULAR HGB CONC 31.7 g/dL (33.2-36.2); MEAN CORPUSCULAR VOLUME 104.4 fL (81-97); MEAN PLATELET VOLUME 8.2 fL (7.4-10.4); PLATELET COUNT 409 x10^3/uL (130-400); RED BLOOD COUNT 2.48 x10^6/uL (4.38-5.82); RED CELL DISTRIBUTION WIDTH 33.3 % (9.4-14.8)
[2019-04-07 06:58] LABS: EOS% (MANUAL) 6 % (1-7); LYMPH#(MANUAL) 9.35 x10^3/uL (1-3.4); LYMPHS% (MANUAL) 56 % (22-44); MONOS#(MANUAL) 0.67 x10^3/uL (0.3-2.7); MONOS% (MANUAL) 4 % (2-9); NRBC % (MANUAL) 38 % (0-1); SEG#(MANUAL) 5.68 x10^3/uL (1.8-6.8); SEGS% (MANUAL) 34 % (42-75)
[2019-04-07 06:59] LABS: ANISOCYTOSIS 3+; HOWELL-JOLLY BODIES 1+; MICROCYTOSIS 1+; PAPPENHEIMER BODIES 1+; POLYCHROMASIA 2+
[2019-04-07 07:00] LABS: <PLATELET ESTIMATE> INCREASED; <PLT MORPHOLOGY> NORMAL PLT MORPH; ACANTHOCYTES 1+; ECHINOCYTES 1+; LARGE PLATELETS 1+; OVALOCYTES 1+; SPHEROCYTES 1+; TARGET CELLS 1+
[2019-04-07 08:20] VITALS: BP 113/74
[2019-04-07 14:01] VITALS: BP 101/59
[2019-04-07 19:26] VITALS: BP 112/70
[2019-04-08] MEDS: HYDROmorphone 2 MG/ML, 1ML IVPush PRN ×2 (02:59→05:49)
[2019-04-08 03:03] VITALS: BP 108/71
[2019-04-08 05:29] LABS: ALBUMIN 3.9 g/dL (3.4-5.0); ANION GAP 7 mmol/L (5-15); CALCIUM 7.8 mg/dL (8.5-10.1); CHLORIDE 110 mmol/L (98-107); CREATININE 0.69 mg/dL (0.7-1.3)
[2019-04-08 05:39] LABS: ALKALINE PHOSPHATASE 111 U/L (45-117); BILIRUBIN,TOTAL 7.1 mg/dL (0.2-1.0)
[2019-04-08] MEDS: DIPHENHYDRAMINE 50 MG/ML, 1ML IVPush PRN (05:49)
[2019-04-08 05:51] LABS: ALANINE AMINOTRANSFERASE 60 U/L (12-78); TOTAL PROTEIN 6.5 g/dL (6.4-8.2)
[2019-04-08 05:55] LABS: MD YES; MEAN CORPUSCULAR HEMOGLOBIN 35.6 pg (27.5-34.5); MEAN CORPUSCULAR HGB CONC 33.9 g/dL (33.2-36.2); MEAN PLATELET VOLUME 8.5 fL (7.4-10.4); PLATELET COUNT 427 x10^3/uL (130-400); RED BLOOD COUNT 2.24 x10^6/uL (4.38-5.82); RED CELL DISTRIBUTION WIDTH 33.9 % (9.4-14.8)
[2019-04-08 06:01] LABS: ANISOCYTOSIS 2+; EOS#(MANUAL) 1.54 x10^3/uL (0.0-0.4); EOS% (MANUAL) 10 % (1-7); LYMPHS% (MANUAL) 50 % (22-44); MICROCYTOSIS 1+; MONOS#(MANUAL) 0.77 x10^3/uL (0.3-2.7); MONOS% (MANUAL) 5 % (2-9); NRBC % (MANUAL) 16 % (0-1); SEG#(MANUAL) 5.39 x10^3/uL (1.8-6.8); SEGS% (MANUAL) 35 % (42-75)
[2019-04-08 06:02] LABS: <PLATELET ESTIMATE> INCREASED; ACANTHOCYTES 1+; ECHINOCYTES 1+; LARGE PLATELETS 1+; OVALOCYTES 1+; POLYCHROMASIA 2+; SPHEROCYTES 1+; TARGET CELLS 1+
[2019-04-08 06:40] VITALS: BP 116/78
[2019-04-08] MEDS ORDERED: SODIUM CHLORIDE 0.9% 1,000 ML IV SCH (08:30)
[2019-04-08] MEDS ORDERED: HYDROmorphone 2 MG/ML, 1ML IVPush PRN (08:30)
[2019-04-08 12:41] LABS: HOWELL-JOLLY BODIES 1+
== END 2019-04-08 10:27 | disposition left against medical advice (07) | DRG 247 ==
LOC: ED 14:42 → SUATTDRO 14:53 → EDIP 16:26 → 3N 17:19
PROVIDERS: ADMIT Internal Medicine; ATTEND Internal Medicine
DX: K56.51 Intestinal adhesions [bands], with partial obstruction (principal); F11.20 Opioid dependence, uncomplicated; R17 Unspecified jaundice; D50.9 Iron deficiency anemia, unspecified; F17.210 Nicotine dependence, cigarettes, uncomplicated; B19.20 Unspecified viral hepatitis C without hepatic coma; E78.5 Hyperlipidemia, unspecified; G89.29 Other chronic pain; I10 Essential (primary) hypertension; Z86.19 Personal history of other infectious and parasitic diseases; Z90.81 Acquired absence of spleen; Z53.29 Procedure and treatment not carried out because of patient's decision for other reasons; Z91.041 Radiographic dye allergy status; Z88.5 Allergy status to narcotic agent; Z91.013 Allergy to seafood; Z91.018 Allergy to other foods; K92.1 Melena
CPT/HCPCS: 36415; 74018; 80053; 85014; 85018; 85025; 99285; G0378; J1170; J1644; J1200; J2060; J7030

== ENCOUNTER 2019-04-29 00:55 | Emergency (ER) | payer MEDICAID ==
[~2019-04-29] VITALS: Ht 165.1 cm; Wt 55.0 kg
[2019-04-29] MEDS ORDERED: HYDROmorphone 1 MG/ML, 1ML INJ ONE ×3 (01:19→03:26)
--- NOTE | 2019-04-29 01:25 | NUR ---
pt medicated per apr. refused zofran, he is requesting iv benadryl, erp updated and no new orders at this time. pt requesting to spreak to , will notify erp
[2019-04-29] MEDS ORDERED: HYDROmorphone 2 MG/ML, 1ML IVPush PRN (01:30)
[2019-04-29] MEDS ORDERED: ONDANSETRON 2MG/ML, 2ML IVPush ONE (01:30)
[2019-04-29 01:31] LABS: ALANINE AMINOTRANSFERASE 73 U/L (12-78); ALBUMIN 4.2 g/dL (3.4-5.0); ANION GAP 8 mmol/L (5-15); CALCIUM 8.6 mg/dL (8.5-10.1); CHLORIDE 112 mmol/L (98-107); CREATININE 0.74 mg/dL (0.7-1.3)
[2019-04-29 01:33] LABS: ALKALINE PHOSPHATASE 123 U/L (45-117); BILIRUBIN,TOTAL 7.7 mg/dL (0.2-1.0); TOTAL PROTEIN 7.3 g/dL (6.4-8.2)
--- NOTE | 2019-04-29 01:54 | NUR ---
pt c/o continud abd pain requesting more pain medication, pt medicated per mar
[2019-04-29] MEDS ORDERED: HYDROmorphone 1 MG/ML, 1ML INJ IVPush PRN (02:00)
--- NOTE | 2019-04-29 02:00 | NUR ---
provided pt with water
[2019-04-29 02:05] LABS: MD YES; MEAN CORPUSCULAR HEMOGLOBIN 34.2 pg (27.5-34.5); MEAN CORPUSCULAR HGB CONC 31.9 g/dL (33.2-36.2); MEAN CORPUSCULAR VOLUME 107.3 fL (81-97); MEAN PLATELET VOLUME 7.8 fL (7.4-10.4); PLATELET COUNT 485 x10^3/uL (130-400); RED BLOOD COUNT 2.45 x10^6/uL (4.38-5.82)
--- NOTE | 2019-04-29 02:05 | NUR ---
urine sample sent
[2019-04-29 02:22] LABS: MICROSCOPIC NOT IND
--- NOTE | 2019-04-29 02:26 | NUR ---
providd pt with xtra warm blankets and pillow
[2019-04-29 02:28] VITALS: BP 121/58
--- NOTE | 2019-04-29 02:34 | NUR ---
pt to ct
[2019-04-29 02:39] LABS: ACANTHOCYTES 1+; ANISOCYTOSIS 2+; BASOS#(MANUAL) 0.22 x10^3/uL (0-0.1); BASOS% (MANUAL) 1 % (0-1); ECHINOCYTES 1+; EOS#(MANUAL) 1.29 x10^3/uL (0.0-0.4); EOS% (MANUAL) 6 % (1-7); LYMPH#(MANUAL) 10.54 x10^3/uL (1-3.4); LYMPHS% (MANUAL) 49 % (22-44); MICROCYTOSIS 1+; MONOS#(MANUAL) 3.44 x10^3/uL (0.3-2.7); MONOS% (MANUAL) 16 % (2-9); NRBC % (MANUAL) 14 % (0-1); OVALOCYTES 1+; POLYCHROMASIA 2+; SEG#(MANUAL) 6.02 x10^3/uL (1.8-6.8); SEGS% (MANUAL) 28 % (42-75); SPHEROCYTES 1+
[2019-04-29 02:40] LABS: <PLATELET ESTIMATE> INCREASED; HOWELL-JOLLY BODIES 1+; LARGE PLATELETS 1+; TARGET CELLS 1+
[2019-04-29] MEDS ORDERED: HYDROmorphone 1 MG/ML, 1ML INJ IV ONE (03:30)
--- NOTE | 2019-04-29 03:47 | NUR ---
pt medicated per mar
== END 2019-04-29 04:08 | disposition home or self-care (01) ==
LOC: ED 01:34
DX: K52.9 Noninfective gastroenteritis and colitis, unspecified (principal); I51.7 Cardiomegaly; F17.200 Nicotine dependence, unspecified, uncomplicated; Z90.49 Acquired absence of other specified parts of digestive tract; Z90.81 Acquired absence of spleen
CPT/HCPCS: 36415; 74176; 80053; 81003; 83690; 85025; 93005; 96374; 96376; 99285; J1170

== ENCOUNTER 2019-05-01 16:29 | Emergency (ER) | payer MEDICAID ==
[~2019-05-01] VITALS: Ht 165.1 cm; Wt 55.0 kg
--- NOTE | 2019-05-01 16:35 | NUR ---
THIS IS A 38 YO M W/ C/O ABD PAIN "FOR MONTHS", BLOOD IN URINE X4 DAYS. PT REPORTS DIARRHEA AND NAUSEA BUT DENIES VOMITING. VS STABLE, NADN. PT IS CONVERSING W/O DIFFICULTY. EMS OFFERED FENTANYL IN ROUTE BUT PT REFUSED. PT RESTING ON GURNEY W/ CALL LIGHT IN REACH. AWAITING ED EVAL.
[2019-05-01] MEDS ORDERED: HYDROmorphone 2 MG/ML, 1ML IVPush ONE (17:00)
[2019-05-01] MEDS ORDERED: HYDROmorphone 2 MG/ML, 1ML ONE (17:03)
--- NOTE | 2019-05-01 17:06 | NUR ---
LABS DRAWN, PT TO CT. Addendum: 05/01/19 at 1706 by CBRUCIAGA LABS DRAWN, PT TO RAD.
[2019-05-01 17:24] LABS: ALBUMIN 4.4 g/dL (3.4-5.0); ANION GAP 6 mmol/L (5-15); CALCIUM 9.2 mg/dL (8.5-10.1); CHLORIDE 110 mmol/L (98-107)
[2019-05-01 17:28] LABS: ALANINE AMINOTRANSFERASE 63 U/L (12-78); ALKALINE PHOSPHATASE 125 U/L (45-117); BILIRUBIN,TOTAL 7.2 mg/dL (0.2-1.0); CREATININE 0.67 mg/dL (0.7-1.3); TOTAL PROTEIN 7.5 g/dL (6.4-8.2)
[2019-05-01] MEDS ORDERED: DIPHENHYDRAMINE 50 MG/ML, 1ML ONE ×2 (17:40→18:40)
[2019-05-01 17:42] LABS: MEAN CORPUSCULAR HEMOGLOBIN 35.6 pg (27.5-34.5); MEAN CORPUSCULAR VOLUME 111.2 fL (81-97); MEAN PLATELET VOLUME 7.7 fL (7.4-10.4); PLATELET COUNT 448 x10^3/uL (130-400); RED CELL DISTRIBUTION WIDTH 33.9 % (9.4-14.8)
[2019-05-01 17:43] LABS: MD YES
[2019-05-01 17:46] LABS: BASOS#(MANUAL) 0.52 x10^3/uL (0-0.1); BASOS% (MANUAL) 3 % (0-1); EOS#(MANUAL) 0.69 x10^3/uL (0.0-0.4); EOS% (MANUAL) 4 % (1-7); LYMPH#(MANUAL) 9.46 x10^3/uL (1-3.4); LYMPHS% (MANUAL) 55 % (22-44); MONOS#(MANUAL) 2.24 x10^3/uL (0.3-2.7); MONOS% (MANUAL) 13 % (2-9); MYELOCYTES# (MANUAL) 0.17 x10^3/uL (0-0); MYELOCYTES% (MANUAL) 1 % (0-0); NRBC % (MANUAL) 21 % (0-1); REACTIVE LYMPHS # (MANUAL) 0.17 x10^3/uL (0-0); REACTIVE LYMPHS % (MANUAL) 1 % (0-0); SEG#(MANUAL) 3.96 x10^3/uL (1.8-6.8); SEGS% (MANUAL) 23 % (42-75)
--- NOTE | 2019-05-01 17:46 | NUR ---
PT MEDICATED PER EMAR.
--- NOTE | 2019-05-01 17:49 | NUR ---
ALL TESTS RESULTED. PT IS UP FOR RECHECK AT THIS TIME.
[2019-05-01 17:52] LABS: ANISOCYTOSIS 2+
[2019-05-01 17:53] LABS: MICROCYTOSIS 1+; POLYCHROMASIA 2+
[2019-05-01 17:54] LABS: SPHEROCYTES 1+; TARGET CELLS 1+
[2019-05-01 17:55] LABS: HOWELL-JOLLY BODIES 1+; OVALOCYTES 1+
[2019-05-01 17:57] LABS: <PLATELET ESTIMATE> INCREASED; <PLT MORPHOLOGY> NORMAL PLT MORPH
[2019-05-01] MEDS ORDERED: DIPHENHYDRAMINE 50 MG/ML, 1ML IVPush ONE ×2 (18:00→19:00)
--- NOTE | 2019-05-01 18:01 | NUR ---
PT RESTING ON GURNEY, PROVIDED 2 WARM BLANKETS FOR COMFORT. CALL LIGHT IN REACH. AWAITING RESULTS.
[2019-05-01 18:29] VITALS: BP 103/51
--- NOTE | 2019-05-01 18:34 | NUR ---
PT REPORTS NO RELIEF OF PAIN AFTER MEDS. NOTIFIED.
--- NOTE | 2019-05-01 19:03 | NUR ---
Patient given discharge instructions and they have confirmed that they understand the instructions. Patient ambulatory with steady gait.
== END 2019-05-01 19:04 | disposition home or self-care (01) ==
LOC: ED 17:29
DX: G89.29 Other chronic pain (principal); R10.84 Generalized abdominal pain; D53.9 Nutritional anemia, unspecified; I10 Essential (primary) hypertension; Z90.49 Acquired absence of other specified parts of digestive tract
CPT/HCPCS: 36415; 74021; 80053; 83690; 85025; 86850; 86900; 96374; 96375; 96376; 99284; J1170; J1200

== ENCOUNTER 2019-06-28 08:17 | Emergency (ER) | payer MEDICAID ==
[~2019-06-28] VITALS: Ht 165.1 cm; Wt 52.0 kg
[~2019-06-28 08:17] MED LIST changes: -OXYC-432 PO; +OXYC1TAB18 PO
--- NOTE | 2019-06-28 08:40 | NUR ---
PT BROUGHT BACK FROM TRIAGE WITH CHIEF COMPLAINT OF WHOLE BODY PAIN, BLOOD IN URINE FOR 4 DAYS. HX PK & HEP C AND WEEKLY TRANSFUSIONS. STATES HE HASNT HAD TRANSFUSION IN ONE MONTH.
[2019-06-28] MEDS ORDERED: DIPHENHYDRAMINE 50 MG/ML, 1ML IVPush ONE (09:00)
[2019-06-28] MEDS ORDERED: SODIUM CHLORIDE FLUSH 10ML SYR IVF ONE (09:00)
[2019-06-28] MEDS ORDERED: HYDROmorphone 2 MG/ML, 1ML IVPush PRN (09:00)
[2019-06-28] MEDS ORDERED: DIPHENHYDRAMINE 50 MG/ML, 1ML ONE (09:04)
[2019-06-28] MEDS ORDERED: HYDROmorphone 1 MG/ML, 1ML INJ ONE (09:05)
[2019-06-28 09:39] LABS: MICROSCOPIC NOT IND
--- NOTE | 2019-06-28 09:41 | NUR ---
PT MEDICATED ORDERED. RESTING IN BED, CALL LIGHT IN REACH.
[2019-06-28 09:44] VITALS: BP 112/67
[2019-06-28 09:46] LABS: ANION GAP 5 mmol/L (5-15); CALCIUM 8.7 mg/dL (8.5-10.1); CHLORIDE 109 mmol/L (98-107); CREATININE 0.79 mg/dL (0.7-1.3)
[2019-06-28 09:47] LABS: ALBUMIN 4.3 g/dL (3.4-5.0)
[2019-06-28 09:55] LABS: ALKALINE PHOSPHATASE 132 U/L (45-117); BILIRUBIN,TOTAL 8.7 mg/dL (0.2-1.0)
[2019-06-28 10:11] LABS: MEAN CORPUSCULAR HEMOGLOBIN 43.5 pg (27.5-34.5); MEAN CORPUSCULAR HGB CONC 33.7 g/dL (33.2-36.2); MEAN PLATELET VOLUME 7.9 fL (7.4-10.4); PLATELET COUNT 409 x10^3/uL (130-400); RED BLOOD COUNT 1.92 x10^6/uL (4.38-5.82); RED CELL DISTRIBUTION WIDTH 16.1 % (9.4-14.8)
[2019-06-28 10:13] LABS: MD YES
[2019-06-28 10:17] LABS: ALANINE AMINOTRANSFERASE 71 U/L (12-78); METAMYELOCYTES# (MANUAL) 0.15 x10^3/uL (0-0); METAMYELOCYTES% (MANUAL) 1 % (0-1); MONOS#(MANUAL) 1.19 x10^3/uL (0.3-2.7); MONOS% (MANUAL) 8 % (2-9)
[2019-06-28 10:19] LABS: EOS#(MANUAL) 1.79 x10^3/uL (0.0-0.4); EOS% (MANUAL) 12 % (1-7); LYMPHS% (MANUAL) 49 % (22-44); SEG#(MANUAL) 4.47 x10^3/uL (1.8-6.8); SEGS% (MANUAL) 30 % (42-75)
[2019-06-28 10:20] LABS: ANISOCYTOSIS 2+; HOWELL-JOLLY BODIES 1+; POLYCHROMASIA 2+
[2019-06-28 10:21] LABS: OVALOCYTES 1+; SPHEROCYTES 1+
[2019-06-28 10:22] LABS: <PLATELET ESTIMATE> INCREASED; <PLT MORPHOLOGY> NORMAL PLT MORPH
--- NOTE | 2019-06-28 10:22 | NUR ---
WHEN FOLLOWING UP WITH PATIENT- FOUND PATIENT HAD ELOPED. ERMD & BIOMEDICAL ANALYTICAL SCIENTIST NOTIFIED
[2019-06-28 10:23] LABS: CRENATED 1+
[2019-06-28 11:03] LABS: TOTAL PROTEIN 7.6 g/dL (6.4-8.2)
== END 2019-06-28 11:03 | disposition left against medical advice (07) ==
LOC: ED 10:20
DX: G89.29 Other chronic pain (principal); D53.9 Nutritional anemia, unspecified; D72.829 Elevated white blood cell count, unspecified; R31.9 Hematuria, unspecified; R10.9 Unspecified abdominal pain; E80.6 Other disorders of bilirubin metabolism; I10 Essential (primary) hypertension; Z90.49 Acquired absence of other specified parts of digestive tract; Z90.81 Acquired absence of spleen
CPT/HCPCS: 36415; 80053; 81003; 83690; 85025; 96374; 96375; 99284; J1170; J1200

== ENCOUNTER 2019-07-06 18:35 | Emergency (ER) | payer MEDICAID ==
[~2019-07-06] VITALS: Ht 165.1 cm; Wt 51.1 kg
[~2019-07-06 18:35] MED LIST changes: +OXYC-432 PO; -OXYC1TAB18 PO
[2019-07-06] MEDS ORDERED: ONDANSETRON 2MG/ML, 2ML ONE (19:08)
[2019-07-06] MEDS ORDERED: HYDROmorphone 1 MG/ML, 1ML INJ ONE ×3 (19:08→23:14)
[2019-07-06] MEDS: HYDROmorphone 2 MG/ML, 1ML IVPush PRN ×2 (19:12→20:36)
[2019-07-06] MEDS ORDERED: SODIUM CHLORIDE 0.9% 1,000ML IVBOLUS ONE ×2 (19:30→20:30)
[2019-07-06] MEDS ORDERED: ONDANSETRON 2MG/ML, 2ML IVPush ONE (19:30)
[2019-07-06 19:58] LABS: ALANINE AMINOTRANSFERASE 68 U/L (12-78); ANION GAP 6 mmol/L (5-15); CALCIUM 8.8 mg/dL (8.5-10.1); CHLORIDE 111 mmol/L (98-107); CREATININE 0.61 mg/dL (0.7-1.3)
[2019-07-06 20:00] LABS: ALKALINE PHOSPHATASE 118 U/L (45-117); BILIRUBIN,TOTAL 6.8 mg/dL (0.2-1.0); TOTAL PROTEIN 6.9 g/dL (6.4-8.2)
[2019-07-06 20:14] LABS: MEAN CORPUSCULAR HEMOGLOBIN 41.3 pg (27.5-34.5); MEAN CORPUSCULAR HGB CONC 30.9 g/dL (33.2-36.2); MEAN CORPUSCULAR VOLUME 133.4 fL (81-97); MEAN PLATELET VOLUME 7.6 fL (7.4-10.4); PLATELET COUNT 432 x10^3/uL (130-400); RED BLOOD COUNT 1.74 x10^6/uL (4.38-5.82); RED CELL DISTRIBUTION WIDTH 17.4 % (9.4-14.8)
[2019-07-06 20:47] LABS: MD YES
[2019-07-06 20:49] LABS: MICROSCOPIC NOT IND
--- NOTE | 2019-07-06 21:00 | NUR ---
PATIENT EXHIBITING DRUG SEEKING BEHAVIORS. ASKING FOR IV PAIN MEDICATIONS TO NOT BE DILUTED OR ADMINISTERED THROUGH HUB OF IV TUBING. PATIENT HAS REQUESTED THAT IV PAIN MEDICATIONS TO BE DIRECTLY INSTILLED THROUGH IV HUB. THE PATIENT WAS EXPLAINED BEST PRACTICE FOR IV PAIN MEDICATIONS, ADMINISTRATION TIMES AND PROPER DILUTION OF PAIN MEDICATIONS PER EVIDENCE BASED PRACTICES. PATIENT APPOLOGIZED FOR BEHAVIORS, STARTED CRYING, THEN ADMITTED TO HAVING PREFERENCE OF IV ADMINISTRATION BECAUSE OF THE IMMEDIATE EFFECT. PATIENT GIVEN EDUCATION ON BLOOD PRESSURE AND SIDE EFFECTS OF IV MEDICATIONS BEING ADMINISTERED TOO QUICKLY. EVIDENCE OF LEARNING HAS BEEN EXHIBITED. WILL CONTINUE TO MONITOR.
[2019-07-06 21:04] LABS: BAND#(MANUAL) 0.18 x10^3/uL; BANDS%(MANUAL) 1 % (0-7); BASOS#(MANUAL) 0.18 x10^3/uL (0-0.1); BASOS% (MANUAL) 1 % (0-1); EOS#(MANUAL) 0.54 x10^3/uL (0.0-0.4); EOS% (MANUAL) 3 % (1-7); LYMPH#(MANUAL) 8.59 x10^3/uL (1-3.4); LYMPHS% (MANUAL) 48 % (22-44); MONOS#(MANUAL) 1.25 x10^3/uL (0.3-2.7); MONOS% (MANUAL) 7 % (2-9); MYELOCYTES# (MANUAL) 0.18 x10^3/uL (0-0); MYELOCYTES% (MANUAL) 1 % (0-0); NRBC % (MANUAL) 45 % (0-1); SEG#(MANUAL) 7.16 x10^3/uL (1.8-6.8); SEGS% (MANUAL) 40 % (42-75)
[2019-07-06 21:06] LABS: ANISOCYTOSIS 1+; POLYCHROMASIA 2+
[2019-07-06 21:07] LABS: HOWELL-JOLLY BODIES 1+; SPHEROCYTES 1+; TARGET CELLS 1+
[2019-07-06 21:08] LABS: OVALOCYTES 1+
[2019-07-06 21:09] LABS: CRENATED 1+
[2019-07-06 21:10] LABS: <PLATELET ESTIMATE> INCREASED; GIANT PLATELETS 1+
--- NOTE | 2019-07-06 21:14 | NUR ---
UPDATED PATIENT ON PLAN OF CARE. NO NOTED NEEDS AT THIS TIME. WILL CONTINUE TO MONITOR.
--- NOTE | 2019-07-06 21:22 | NUR ---
PATIENT AMBULATORY TO RESTROOM WITHOUT COMPLICATIONS.
--- NOTE | 2019-07-06 23:10 | NUR ---
PATIENT ACCUSED NURSE OF ATTEMPTING TO START BLOOD WITHOUT SECOND RN AT BEDSIDE. SECOND RN WAS CONSULTED, NELDA PERKINS, NURSE WAS COMING INTO ROOM ONCE BLOOD PRODCUTS WERE READY TO BE ADMINISTERED. SECOND RN WAS AT BEDSIDE PRIOR TO BLOOD ADMINISTRATION BEING STARTED.
[2019-07-06] MEDS ORDERED: DIPHENHYDRAMINE 50 MG/ML, 1ML ONE (23:13)
[2019-07-06 23:19] VITALS: BP 112/70
--- NOTE | 2019-07-06 23:19 | NUR ---
PATIENT WAS GIVEN PAIN MEDICATIONS, IV DILUADID 1MG AND 25MG BENADRYL. PATIENT GIVEN MEDICATIONS. THE PATIENT REQUEST THAT THE IV PAIN MEDICATION BE PUSHED DIRECTLY IN TO THE IV PORT ITSELF AND NOT DILUTED. EDUCATION REITERATED REGARDING IV PAIN MEDICATIONS AND PROPER DILUATION/IV TIME ADMINISTRATION. PATIENT ACCUSED NURSE OF NOT ADMINISTERING MEDICATIONS, MEDICATIONS WERE DRAWN UP AT BEDSIDE AND ADMINISTERED PER APR.
[2019-07-06] MEDS ORDERED: DIPHENHYDRAMINE 50 MG/ML, 1ML IVPush ONE (23:30)
[2019-07-06] MEDS ORDERED: HYDROmorphone 1 MG/ML, 1ML INJ IV ONE (23:30)
[2019-07-06 23:33] VITALS: BP 109/69
--- NOTE | 2019-07-06 23:35 | NUR ---
PATIENT DENIES ANY COMPLICATIONS FROM BLOOD TRANSFUSION, VITAL SIGNS REMAIN STABLE. WILL CONTINUE TO MONITOR.
[2019-07-06 23:49] VITALS: BP 102/59
--- NOTE | 2019-07-06 23:50 | NUR ---
PATIENT STATED THAT HE IS ITCHING. PATIENT ADMITS TO ITCHING BEING A SYMPTOM HE ALWAYS HAS WITH TRANSFUSIONS. MD AWARE, NO FURTHER ORDERS. BLOOD TRANSFUSION WILL CONTINUE, VITAL SIGNS HAVE REMAINED STABLE. PATIENT DENIES ANY ADDITIONAL COMPLICATIONS FROM BLOOD TRANSFUSIONS AT THIS TIME. WILL CONTINUE TO MONITOR .
[2019-07-07 00:22] VITALS: BP 106/61
--- NOTE | 2019-07-07 00:27 | NUR ---
PATIENT DENIES ANY FURTHER COMPLICATIONS AT THIS TIME. REQUESTING TO SPEAK WITH MD REGARDING ITCHING. PATIENT IS NOT ITCHING IN ROOM WHEN STAFF IS NOT PRESENT. VITAL SIGNS REMAIN STABLE. NO NOTED TRANSFUSION REACTION AT THIS TIME.
--- NOTE | 2019-07-07 00:35 | NUR ---
PROVIDER AT BEDSIDE WITH PATIENT DISCUSSING PLAN OF CARE. PATIENT WILL RECIEVE ONE ADDITIONAL DOSAGE OF 25MG BENADRYL IV FOR ITCHING, PAIN MEDICATION WILL NOT BE ADMINISTERED.
[2019-07-07 00:42] VITALS: BP 115/60
--- NOTE | 2019-07-07 00:43 | NUR ---
Lunch RN: Pt resting in bed, nadn. Pt still having blood transfuse.
[2019-07-07] MEDS ORDERED: DIPHENHYDRAMINE 50 MG/ML, 1ML ONE (00:55)
--- NOTE | 2019-07-07 00:58 | NUR ---
Pt given 25mg benadryl IV for itching regarding transfusion. Pt resting in bed. IV flushed approrpitely and blood restarted.
[2019-07-07] MEDS ORDERED: DIPHENHYDRAMINE 50 MG/ML, 1ML IVPush ONE (01:00)
[2019-07-07 01:11] VITALS: BP 110/71
[2019-07-07 01:30] VITALS: BP 114/76
--- NOTE | 2019-07-07 01:30 | NUR ---
VITAL SIGNS OBTAINED PER POLICY. THE PATIENT STATED THAT HE WAS TO RECIEVE ADDTIONAL PAIN MEDICATIONS. THE NURSE, MYSELF, WAS IN THE ROOM WITH THE PATIENT DURING THE CONVERSATION THE PROVIDER HAD WITH THE PATIENT REGARDING IV BENADRYL. THE PATIENT WAS TOLD THAT ADDITIONAL IV PAIN MEDICATION DOSAGES WOULD NOT OCCUR, THE PATIENT HAS HAD THREE DOSAGES OF PAIN MEDICATIONS PREVIOUSLY. THE PATIENT STATED, "ARE YOU CALLING ME A LIAR". NO VERBAGE OF THE WORD "LIAR" WAS USED BY ANY STAFF MEMBER. NURSE DOUBLE CHECKED WITH PROVIDER TO ENSURE THAT THE PATIENT DID NOT HAVE ADDITIONAL PAIN MEDICATIONS TO BE ORDERED. CONFIRMED. THE PATIENT WAS UPDATED ON PLAN OF CARE, PATIENT DISPLEASED WITH INFORMATION.
[2019-07-07 02:00] VITALS: BP 95/59
--- NOTE | 2019-07-07 02:00 | NUR ---
PATIENT WAS IN ROOM REMOVING MONITOR EQUIPMENT IN ROOM. INFORMED THE PATIENT THAT DURING BLOOD ADMINISTRATION THE PATIENT MUST REMIAN ON THE MONITOR. NO EDUCATION NOTED. PATIENT PLACED BACK ON MONITOR.
--- NOTE | 2019-07-07 02:00 | NUR ---
TASK RN: I WENT TO CHECK ON BLOOD TRANSFUSION. PT HAD DISCONNECTED IV LINE, TIED IT INTO A KNOT AND RECONNECTED TO HIMSELF TO PREVENT BLOOD FLOW. PT QUICKLY BEGINS ASKING ME FOR DILAUDID. I RECONNECTED IV LINE PROPERLY AND INSTUCTED PT NOT TO TOUCH IV EQUIPTMENT. AFTER LEAVING THE ROOM, PT IN A CAMERA ROOM, HE BEGINS TO TOUCH IV PUMP. I RETURNED TO ROOM AND REINFORCED INSTRUCTION NOT TO TOUCH EQUIPTMENT AND TO PRESS THE CALL LIGHT IF THE PUMP BEEPS.
[2019-07-07 03:00] VITALS: BP 121/76
--- NOTE | 2019-07-07 03:09 | NUR ---
AT DISCHARGE THE PATIENT BEGAN SCREAMING AT THE NURSE RELATED TO NOT HAVING IV PAIN MEDICATIONS, AND NOT HAVING SEEN THE DOCTOR. THE PATIENT'S PLAN OF CARE WAS DISCUSSED WITH PROVIDER, PROVIDER AGREED TO HAVE ADDITIONAL BENADRYL ORDERED IV 25MG. THE PROVIDER STATED THAT THE PATIENT WOULD NOT HAVE ADDITIONAL PAIN MEDICATIONS, THE PATIENT HAS PREVIOUSLY RECIEVED THREE DOSAGES OF IV PAIN MEDICATIONS. CHANNEL DEVELOPMENT DIRECTOR CAUGHT THE PATIENT ADJUSTING IV PUMP AND CLAMPING OFF IV LINE, THIS WAS NOT DISCUSSED WITH THE PATIENT. THE PATIENT BEGAN YELLING AND SCREAMING REGARDING NOT HAVING ADDITIONAL DISCHARGE BLOOD PRESSURE PERFORMED AND NOT HAVING IV PAIN MEDICATIONS PRIOR TO DISCHARGE. THE PATIENT WAS INFORMED THAT DISCHARGE VITAL SIGNS NEEDED TO BE TAKEN TO ENSURE A SAFE DISCHARGE. THE PATIENT THREW BLOOD PRESSURE CUFF. AFTER ADDITIONAL STAFF ARRIVED IN THE ROOM, THE PATIENT AGREED TO HAVE BLOOD PRESSURE TAKEN, STATING "DON'T FINISH TALKING OR YOU WONT GET THIS BLOOD PRESSURE". THE PATIENT WAS INFORMED THAT WITHOUT A BLOOD PRESSURE DISCHARGE WOULD NOT OCCUR, DUE TO POSSIBLE COMPLICATIONS RELATED WITH BLOOD TRANSFUSIONS. THE PATIENT THEN STATED "WELL YOU CALLED ME A LIAR", PATIENT WAS A SPEAKING OF THE CORRECTION REGARDING IV PAIN MEDICATIONS PREVIOUSLY. THE PATIENT WAS NOT CALLED A LIAR. THE PATIENT BEGAN TO REMOVE IV, INFORMED PATIENT THAT THIS BEHAVIOR WOULD NOT BE TOLERATED. THE PATIENT STATED THAT HE WAS NOT YELLING AT STAFF, ADDITIONAL STAFF MEMBERS AND SECURITY AT BEDSIDE TO WITNESS PATIENT'S BEHAVIOR. THE PATIENT THEN STATED THAT THE NURSE, MYSELF, WAS RUDE TO HIM DURING HIS ER VISIT. THE PATIENT BEGAN TO DRESS HIMSELF, NO NOTED COMPLICATIONS, WALKED TO DISCHARGE WINDOW VIA SECURITY. AMBULATORY WITHOUT COMPLICATIONS.
== END 2019-07-07 03:31 | disposition home or self-care (01) ==
LOC: ED 21:46
DX: D55.2 Anemia due to disorders of glycolytic enzymes (principal); I10 Essential (primary) hypertension; Z04.9 Encounter for examination and observation for unspecified reason; Z90.49 Acquired absence of other specified parts of digestive tract; F17.200 Nicotine dependence, unspecified, uncomplicated; R19.7 Diarrhea, unspecified
CPT/HCPCS: 36415; 36430; 80053; 81003; 83690; 85025; 86850; 86900; 86923; 96361; 96374; 96375; 96376; 99285; J1170; J1200; J2405; J7030; P9016

== ENCOUNTER 2019-08-10 15:17 | Emergency (ER) | payer MEDICAID ==
[~2019-08-10] VITALS: Ht 165.1 cm; Wt 49.9 kg
--- NOTE | 2019-08-10 15:41 | NUR ---
first contact with pt. pt stated "I'm bleeding through my urine and when i do go diarrhea i've seen a little blood. my brother had colon cancer and he had blood in his rectum. I fell off my bed twice today. I had hepatitis C. My skin is yellow. I have diverticulitis too". Mild dizziness. States "I feel my heartbeat in my back". pt's aox4. resps even and unlabored. c/o generalized weakness and all over the body pain. bp/spo2 monitors in place. call light within reach.
--- NOTE | 2019-08-10 15:42 | NUR ---
pt amb to br with steady gait. urine cup given.
--- NOTE | 2019-08-10 15:49 | NUR ---
urine collected and ua sent at this time.
[2019-08-10] MEDS ORDERED: HYDROmorphone 2 MG/ML, 1ML IVPush ONE ×2 (16:00→19:00)
[2019-08-10] MEDS ORDERED: SODIUM CHLORIDE FLUSH 10ML SYR IVF ONE (16:00)
[2019-08-10] MEDS ORDERED: ONDANSETRON 2MG/ML, 2ML IVPush ONE (16:00)
[2019-08-10 16:02] LABS: MICROSCOPIC INDICATED
[2019-08-10] MEDS ORDERED: ONDANSETRON 2MG/ML, 2ML ONE (16:17)
[2019-08-10] MEDS ORDERED: HYDROmorphone 1 MG/ML, 1ML INJ ONE ×2 (16:17→18:28)
[2019-08-10 16:19] LABS: ALANINE AMINOTRANSFERASE 94 U/L (12-78); ALBUMIN 4.5 g/dL (3.4-5.0); ANION GAP 3 mmol/L (5-15); CALCIUM 9.5 mg/dL (8.5-10.1); CHLORIDE 111 mmol/L (98-107); CREATININE 0.64 mg/dL (0.7-1.3)
[2019-08-10 16:22] LABS: ALKALINE PHOSPHATASE 115 U/L (45-117); BILIRUBIN,TOTAL 9.1 mg/dL (0.2-1.0); TOTAL PROTEIN 7.7 g/dL (6.4-8.2)
[2019-08-10 16:40] LABS: INTERNATIONAL NORMALIZED RATIO 1.07 (0.93-1.1); PROTHROMBIN TIME 11.4 Seconds (9.6-11.5)
[2019-08-10 16:41] LABS: MEAN CORPUSCULAR HEMOGLOBIN 38.9 pg (27.5-34.5); MEAN CORPUSCULAR HGB CONC 31.9 g/dL (33.2-36.2); MEAN CORPUSCULAR VOLUME 121.9 fL (81-97); MEAN PLATELET VOLUME 7.7 fL (7.4-10.4); PLATELET COUNT 472 x10^3/uL (130-400); RED BLOOD COUNT 2.08 x10^6/uL (4.38-5.82)
[2019-08-10 16:42] LABS: MD YES
--- NOTE | 2019-08-10 16:54 | NUR ---
pt requesting more pain meds and benadryl at this time. edmd notified.
[2019-08-10 16:57] LABS: EOS% (MANUAL) 6 % (1-7); LYMPHS% (MANUAL) 44 % (22-44); MONOS% (MANUAL) 9 % (2-9); NRBC % (MANUAL) 59 % (0-1); SEGS% (MANUAL) 41 % (42-75)
[2019-08-10 16:58] LABS: ANISOCYTOSIS 2+; CRENATED 1+; OVALOCYTES 1+; POLYCHROMASIA 2+; SPHEROCYTES 1+; TARGET CELLS 1+
[2019-08-10 17:01] LABS: <PLATELET ESTIMATE> INCREASED; ACANTHOCYTES 1+; HOWELL-JOLLY BODIES 1+
[2019-08-10 17:02] LABS: LARGE PLATELETS 1+
[2019-08-10 17:06] LABS: RED CELL DISTRIBUTION WIDTH 28.1 % (9.4-14.8)
--- NOTE | 2019-08-10 17:31 | NUR ---
pt to ct at this time.
--- NOTE | 2019-08-10 18:05 | NUR ---
pt back to ct. pt resting in [facility]. pt's aox4. resps even and unlabored.
[2019-08-10 18:24] VITALS: BP 108/61
--- NOTE | 2019-08-10 18:24 | NUR ---
EDMD AT BEDSIDE TO EXPLAIN ALL RESULTS AT THIS TIME.
--- NOTE | 2019-08-10 18:44 | NUR ---
PT MEDICATED PER EMAR. PT TOLERATED WELL.
--- NOTE | 2019-08-10 18:46 | NUR ---
Jeniffer kirkland in ED - 08/10/19 at 1847 by ROGELIO PT MEDICATED PER EMAR. PT TOLERATED WELL.
--- NOTE | 2019-08-10 19:23 | NUR ---
Patient given discharge instructions and they have confirmed that they understand the instructions. Patient ambulatory with steady gait.
== END 2019-08-10 19:24 | disposition home or self-care (01) ==
LOC: ED 15:54
DX: G89.29 Other chronic pain (principal); R10.84 Generalized abdominal pain; R31.9 Hematuria, unspecified; I10 Essential (primary) hypertension; Z90.49 Acquired absence of other specified parts of digestive tract; Z90.81 Acquired absence of spleen
CPT/HCPCS: 36415; 74176; 80053; 81001; 83690; 85025; 85610; 85730; 87086; 96374; 96376; 99284; J1170

== ENCOUNTER 2019-08-18 22:57 | Emergency (ER) | payer MEDICAID ==
[~2019-08-18] VITALS: Ht 165.1 cm; Wt 58.0 kg
[2019-08-18 23:05] VITALS: BP 142/58
--- NOTE | 2019-08-19 01:30 | NUR ---
pt to room from lobby
--- NOTE | 2019-08-19 01:43 | NUR ---
PT GOT DRESSED AND LEFT SAYING "I DONT LIKE THAT DOCTOR", PT WALKED FAST AND WITH GREAT STRENGHT OUT OF THE ER
[2019-08-19 02:00] LABS: ALANINE AMINOTRANSFERASE 63 U/L (12-78); ALBUMIN 3.9 g/dL (3.4-5.0); ANION GAP 5 mmol/L (5-15); CALCIUM 8.2 mg/dL (8.5-10.1); CHLORIDE 111 mmol/L (98-107); CREATININE 0.54 mg/dL (0.7-1.3)
[2019-08-19 02:02] LABS: MEAN CORPUSCULAR HEMOGLOBIN 37.1 pg (27.5-34.5); MEAN CORPUSCULAR HGB CONC 30.9 g/dL (33.2-36.2); MEAN CORPUSCULAR VOLUME 119.8 fL (81-97); MEAN PLATELET VOLUME 7.8 fL (7.4-10.4); PLATELET COUNT 388 x10^3/uL (130-400); RED BLOOD COUNT 2.01 x10^6/uL (4.38-5.82); RED CELL DISTRIBUTION WIDTH 23.2 % (9.4-14.8)
[2019-08-19 02:03] LABS: ALKALINE PHOSPHATASE 118 U/L (45-117); BILIRUBIN,TOTAL 5.8 mg/dL (0.2-1.0); TOTAL PROTEIN 6.7 g/dL (6.4-8.2)
[2019-08-19 02:05] LABS: MD YES
[2019-08-19 02:08] LABS: BASOS#(MANUAL) 0.17 x10^3/uL (0-0.1); BASOS% (MANUAL) 1 % (0-1); EOS#(MANUAL) 2.24 x10^3/uL (0.0-0.4); EOS% (MANUAL) 13 % (1-7); LYMPH#(MANUAL) 6.88 x10^3/uL (1-3.4); LYMPHS% (MANUAL) 40 % (22-44); MONOS#(MANUAL) 0.52 x10^3/uL (0.3-2.7); MONOS% (MANUAL) 3 % (2-9); NRBC % (MANUAL) 4 % (0-1); SEGS% (MANUAL) 43 % (42-75)
[2019-08-19 02:09] LABS: ANISOCYTOSIS 2+; CRENATED 1+; POLYCHROMASIA 2+; TARGET CELLS 1+
[2019-08-19 02:10] LABS: OVALOCYTES 1+
[2019-08-19 02:11] LABS: SPHEROCYTES 1+
[2019-08-19 02:12] LABS: <PLATELET ESTIMATE> ADEQUATE; HOWELL-JOLLY BODIES 1+
[2019-08-19 02:13] LABS: LARGE PLATELETS 1+
[2019-08-19 02:15] LABS: ACANTHOCYTES 1+
== END 2019-08-19 01:47 | disposition left against medical advice (07) ==
LOC: ED 08-19 01:30
DX: E80.6 Other disorders of bilirubin metabolism (principal); R10.84 Generalized abdominal pain; G89.29 Other chronic pain; R31.9 Hematuria, unspecified; I10 Essential (primary) hypertension; Z90.49 Acquired absence of other specified parts of digestive tract; Z90.81 Acquired absence of spleen; Z87.891 Personal history of nicotine dependence
CPT/HCPCS: 36415; 80053; 83690; 85025; 99283

== ENCOUNTER 2019-09-10 15:25 | Emergency (ER) | payer MEDICAID ==
[~2019-09-10] VITALS: Ht 165.1 cm; Wt 49.1 kg
--- NOTE | 2019-09-10 15:44 | NUR ---
FIRST CONTACT WITH PT. PT STATED "I PASSED OUT TODAY, I HAVE PK DEFICIENCY" PT REPORT HE HAS URINATED BLOOD X3 DAYS. PT IS JAUNDICED. REPORTS PAIN ALL OVER BODY. PT'S AOX4. RESPS EVEN AND UNLABORED. BP/SPO2 MONITORS IN PLACE. CALL LIGHT WITHIN REACH. EDMD AT BEDSIDE TO EVALUATE AT THIS TIME.
--- NOTE | 2019-09-10 15:44 | NUR ---
PT AMB TO BR WITH STEADY GAIT. URINE CUP GIVEN BUT PT STATED " I CAN'T PEE NOW." EDMD NOTIFIED.
[2019-09-10] MEDS ORDERED: HYDROmorphone 1 MG/ML, 1ML INJ ONE (15:54)
[2019-09-10] MEDS ORDERED: ONDANSETRON ODT 4 MG ONE (15:54)
[2019-09-10 15:56] VITALS: BP 114/67
[2019-09-10] MEDS ORDERED: ONDANSETRON ODT 4 MG PO ONE (16:00)
[2019-09-10] MEDS ORDERED: HYDROmorphone 2 MG/ML, 1ML IM ONE (16:00)
--- NOTE | 2019-09-10 16:01 | NUR ---
PT REFUSED ZOFRAN AT THIS TIME. PT MEDICATED PER EMAR FOR PAIN. PT TOLERATED WELL.
[2019-09-10 16:16] LABS: ALANINE AMINOTRANSFERASE 61 U/L (12-78); ALBUMIN 4.4 g/dL (3.4-5.0); ANION GAP 7 mmol/L (5-15); CHLORIDE 113 mmol/L (98-107)
--- NOTE | 2019-09-10 16:16 | NUR ---
WARM BLANKET GIVEN PER REQUEST AT THIS TIME.
[2019-09-10 16:18] LABS: ALKALINE PHOSPHATASE 121 U/L (45-117); BILIRUBIN,TOTAL 8.4 mg/dL (0.2-1.0); CREATININE 0.58 mg/dL (0.7-1.3); TOTAL PROTEIN 7.4 g/dL (6.4-8.2)
[2019-09-10 16:43] LABS: MEAN CORPUSCULAR HEMOGLOBIN 37.6 pg (27.5-34.5); MEAN CORPUSCULAR HGB CONC 30.5 g/dL (33.2-36.2); MEAN CORPUSCULAR VOLUME 123.6 fL (81-97); MEAN PLATELET VOLUME 7.9 fL (7.4-10.4); PLATELET COUNT 485 x10^3/uL (130-400); RED BLOOD COUNT 2.17 x10^6/uL (4.38-5.82); RED CELL DISTRIBUTION WIDTH 22.7 % (9.4-14.8)
[2019-09-10 17:05] LABS: MD YES
[2019-09-10 17:12] LABS: ANISOCYTOSIS 2+; EOS#(MANUAL) 0.34 x10^3/uL (0.0-0.4); EOS% (MANUAL) 2 % (1-7); LYMPH#(MANUAL) 9.18 x10^3/uL (1-3.4); LYMPHS% (MANUAL) 54 % (22-44); MONOS#(MANUAL) 2.38 x10^3/uL (0.3-2.7); MONOS% (MANUAL) 14 % (2-9); NRBC % (MANUAL) 48 % (0-1); SEGS% (MANUAL) 30 % (42-75)
[2019-09-10 17:13] LABS: ACANTHOCYTES 1+; OVALOCYTES 1+; POLYCHROMASIA 2+; SPHEROCYTES 1+
[2019-09-10 17:14] LABS: CRENATED 1+; HOWELL-JOLLY BODIES 1+; TARGET CELLS 1+
[2019-09-10 17:15] LABS: <PLATELET ESTIMATE> INCREASED; GIANT PLATELETS 1+; LARGE PLATELETS 1+
== END 2019-09-10 17:41 | disposition left against medical advice (07) ==
LOC: ED 17:00
DX: R55 Syncope and collapse (principal); R10.9 Unspecified abdominal pain; R31.9 Hematuria, unspecified; I51.7 Cardiomegaly; I10 Essential (primary) hypertension
CPT/HCPCS: 36415; 80053; 85025; 93005; 96372; 99284; J1170

== ENCOUNTER 2019-10-06 15:56 | Inpatient (IN) | payer MEDICAID ==
[~2019-10-06] VITALS: Ht 170.2 cm; Wt 53.7 kg
[~2019-10-06 15:56] MED LIST changes: -OXYC-432 PO; +OXYC1TAB18 PO
[2019-10-06] MEDS ORDERED: ONDANSETRON 2MG/ML, 2ML ONE (16:30)
[2019-10-06] MEDS ORDERED: HYDROmorphone 1 MG/ML, 1ML INJ ONE ×2 (16:30→19:50)
[2019-10-06] MEDS ORDERED: SODIUM CHLORIDE 0.9% 1,000ML IVBOLUS ONE (16:30)
[2019-10-06] MEDS ORDERED: SODIUM CHLORIDE FLUSH 10ML SYR IVF ONE (16:30)
[2019-10-06] MEDS ORDERED: DIPHENHYDRAMINE 50 MG/ML, 1ML ONE ×2 (16:36→17:36)
[2019-10-06] MEDS: ONDANSETRON 2MG/ML, 2ML IVPush ONE ×2 (16:51→16:53)
[2019-10-06] MEDS: PLEASE ENTER HEIGHT AND WEIGHT MC SCH ×2 (16:51→19:35)
[2019-10-06] MEDS: HYDROmorphone 2 MG/ML, 1ML IVPush PRN ×2 (16:53→20:25)
--- NOTE | 2019-10-06 16:53 | NUR ---
BREAK RN: MEDS ADMIN PER APR. PT REFUSED ZOFRAN. PT HAS TRIED TWICE TO PROVIDE URINE SAMPLE WITHOUT SUCCESS. PT PROVIDED WARM BLANKET. CALL LIGHT IN REACH.
[2019-10-06 16:54] LABS: ALANINE AMINOTRANSFERASE 53 U/L (12-78); ALBUMIN 4.3 g/dL (3.4-5.0); ANION GAP 6 mmol/L (5-15); CHLORIDE 114 mmol/L (98-107); CREATININE 0.67 mg/dL (0.7-1.3)
[2019-10-06 16:57] LABS: ALKALINE PHOSPHATASE 116 U/L (45-117); BILIRUBIN,TOTAL 7.6 mg/dL (0.2-1.0); TOTAL PROTEIN 7.5 g/dL (6.4-8.2)
[2019-10-06] MEDS ORDERED: DIPHENHYDRAMINE 50 MG/ML, 1ML IVPush ONE ×2 (17:00→20:00)
[2019-10-06 17:09] LABS: MD YES; MEAN CORPUSCULAR HEMOGLOBIN 39.5 pg (27.5-34.5); MEAN CORPUSCULAR VOLUME 127.2 fL (81-97); MEAN PLATELET VOLUME 7.8 fL (7.4-10.4); PLATELET COUNT 447 x10^3/uL (130-400); RED CELL DISTRIBUTION WIDTH 22.7 % (9.4-14.8)
[2019-10-06 17:13] LABS: BANDS%(MANUAL) 2 % (0-7); EOS% (MANUAL) 9 % (1-7); LYMPHS% (MANUAL) 41 % (22-44); METAMYELOCYTES% (MANUAL) 3 % (0-1); MONOS% (MANUAL) 14 % (2-9); MYELOCYTES% (MANUAL) 1 % (0-0); NRBC % (MANUAL) 39 % (0-1); SEGS% (MANUAL) 30 % (42-75)
[2019-10-06 17:14] LABS: ANISOCYTOSIS 2+; POLYCHROMASIA 2+
[2019-10-06 17:15] LABS: TARGET CELLS 2+
[2019-10-06 17:16] LABS: ACANTHOCYTES 1+; CRENATED 1+; HOWELL-JOLLY BODIES 1+; SPHEROCYTES 1+
[2019-10-06 17:17] LABS: <PLATELET ESTIMATE> ADEQUATE; LARGE PLATELETS 1+
[2019-10-06 17:26] LABS: BAND#(MANUAL) 0.44 x10^3/uL
[2019-10-06 17:28] LABS: METAMYELOCYTES# (MANUAL) 0.67 x10^3/uL (0-0); MONOS#(MANUAL) 3.11 x10^3/uL (0.3-2.7); MYELOCYTES# (MANUAL) 0.22 x10^3/uL (0-0); SEG#(MANUAL) 6.66 x10^3/uL (1.8-6.8)
[2019-10-06] MEDS ORDERED: EPINEPHRINE 1 MG/ML, 1ML ONE (17:35)
[2019-10-06] MEDS ORDERED: OMNIPAQUE 350 MG/ML, 100ML BOTTLE ONE (17:35)
[2019-10-06] MEDS ORDERED: methylPREDNISolone SOD SUCC 125 MG/2 ML ONE (17:36)
--- NOTE | 2019-10-06 17:55 | NUR ---
PT ARRIVED BACK FROM CT AND BECAME APENIC. SAMANTHA SIDHU CALLED BY HEALTH CARE TECHNICIAN. ENTERED ROOM TO FIND MD AT BEDSIDE WITH MULTIPLE STAFF. PT UNRESPONSIVE, PT FOUND TO HAVE A PULSE WITH SHALLOW SPONTANEOUS RESPIRATION'S. SAMANTHA SIDHU CANCELLED. PT PLACED ON NRB, 2MG NARCAN, 25 MG BENADRYL, AND 125 SOLU MEDROL GIVEN IV. AFTER APPROX A MINUTE PT IS A&O4. PT C/O PAIN. VITALS WNL. NRB REMOVED. 2L NC PLACED.
[2019-10-06 18:07] LABS: INTERNATIONAL NORMALIZED RATIO 1.11 (0.93-1.1); PROTHROMBIN TIME 11.4 Seconds (9.6-11.5)
--- NOTE | 2019-10-06 18:20 | NUR ---
PROVIDER NOTIFED OF PT'S PAIN.
[2019-10-06] MEDS ORDERED: methylPREDNISolone SOD SUCC 125 MG/2 ML IVPush ONE (20:00)
[2019-10-06] MEDS ORDERED: NALOXONE 1 MG/ML, 2ML IVPush ONE (20:00)
[2019-10-06] MEDS ORDERED: ACETAMINOPHEN 325 MG TABLET PO PRN (20:30)
[2019-10-06] MEDS ORDERED: HYDROmorphone 2 MG/ML, 1ML IVPush PRN (20:30)
[2019-10-06] MEDS ORDERED: ONDANSETRON ODT 4 MG PO PRN (20:30)
[2019-10-06] MEDS ORDERED: POLYETHYLENE GLYCOL 17 GM PACKET PO PRN (20:30)
[2019-10-06] MEDS ORDERED: BISACODYL 10 MG SUPP PR PRN (20:30)
[2019-10-06 21:17] VITALS: BP 107/70
[2019-10-06] MEDS: SODIUM CHLORIDE 0.45% 1,000 ML IV SCH (21:34)
[2019-10-06] MEDS: ALPRazolam 1MG TAB PO PRN (22:56)
[2019-10-07] VITALS (8 sets, daily range): BP systolic 102–116; BP diastolic 58–74
[2019-10-07] MEDS: HYDROmorphone 2 MG/ML, 1ML IVPush PRN ×7 (00:08→21:17)
[2019-10-07 03:00] LABS: MICROSCOPIC NOT IND
[2019-10-07] MEDS: DIPHENHYDRAMINE 50 MG/ML, 1ML IVPush PRN ×2 (06:03→14:05)
[2019-10-07 06:20] LABS: ALANINE AMINOTRANSFERASE 57 U/L (12-78); ALBUMIN 3.7 g/dL (3.4-5.0); ANION GAP 5 mmol/L (5-15); CALCIUM 8.6 mg/dL (8.5-10.1); CHLORIDE 114 mmol/L (98-107); CREATININE 0.65 mg/dL (0.7-1.3)
[2019-10-07 06:21] LABS: ALKALINE PHOSPHATASE 93 U/L (45-117); BILIRUBIN,TOTAL 6.1 mg/dL (0.2-1.0); TOTAL PROTEIN 6.4 g/dL (6.4-8.2)
[2019-10-07 06:29] LABS: MEAN CORPUSCULAR HEMOGLOBIN 40.8 pg (27.5-34.5); MEAN CORPUSCULAR HGB CONC 31.9 g/dL (33.2-36.2); MEAN CORPUSCULAR VOLUME 127.8 fL (81-97); MEAN PLATELET VOLUME 7.8 fL (7.4-10.4); PLATELET COUNT 362 x10^3/uL (130-400); RED BLOOD COUNT 1.72 x10^6/uL (4.38-5.82); RED CELL DISTRIBUTION WIDTH 21.3 % (9.4-14.8)
[2019-10-07] MEDS ORDERED: ACETAMINOPHEN 325 MG TABLET PO ONE (07:00)
[2019-10-07 07:18] LABS: MD YES
[2019-10-07 07:19] LABS: LYMPH#(MANUAL) 2.14 x10^3/uL (1-3.4); LYMPHS% (MANUAL) 14 % (22-44); MONOS#(MANUAL) 0.77 x10^3/uL (0.3-2.7); MONOS% (MANUAL) 5 % (2-9); NRBC % (MANUAL) 28 % (0-1); SEG#(MANUAL) 12.39 x10^3/uL (1.8-6.8); SEGS% (MANUAL) 81 % (42-75)
[2019-10-07 07:20] LABS: <PLATELET ESTIMATE> ADEQUATE; ACANTHOCYTES 1+; ANISOCYTOSIS 2+; CRENATED 1+; HOWELL-JOLLY BODIES 1+; POLYCHROMASIA 2+; SPHEROCYTES 1+
[2019-10-07 07:21] LABS: <PLT MORPHOLOGY> NORMAL PLT MORPH
[2019-10-07 07:23] LABS: TARGET CELLS 1+
[2019-10-07] MEDS: MULTIVITAMIN 1 TABLET PO SCH (09:30)
[2019-10-07] MEDS: SENNA/DOCUSATE TABLET PO SCH (09:30)
[2019-10-07] MEDS: FOLIC ACID 1 MG TABLET PO SCH (09:30)
[2019-10-07] MEDS: SODIUM CHLORIDE 0.45% 1,000 ML IV SCH (10:45)
[2019-10-07] MEDS ORDERED: DIPHENHYDRAMINE 25 MG CAPSULE PO ONE (12:00)
[2019-10-07] MEDS ORDERED: DIPHENHYDRAMINE 50 MG/ML, 1ML IVPush ONE (12:00)
[2019-10-07] MEDS ORDERED: HYDROmorphone 1 MG/ML, 1ML INJ IV ONE ×2 (12:00→14:30)
[2019-10-07] MEDS: ALPRazolam 1MG TAB PO PRN (22:52)
[2019-10-08] MEDS: SODIUM CHLORIDE 0.45% 1,000 ML IV SCH ×2 (00:30→09:53)
[2019-10-08] MEDS: HYDROmorphone 2 MG/ML, 1ML IVPush PRN ×7 (00:40→19:55)
[2019-10-08] MEDS: DIPHENHYDRAMINE 50 MG/ML, 1ML IVPush PRN ×2 (00:41→13:48)
[2019-10-08 02:00] VITALS: BP 114/71
[2019-10-08 06:15] LABS: ALBUMIN 3.8 g/dL (3.4-5.0); ANION GAP 5 mmol/L (5-15); CALCIUM 8.9 mg/dL (8.5-10.1); CHLORIDE 113 mmol/L (98-107)
[2019-10-08 06:20] LABS: ALANINE AMINOTRANSFERASE 49 U/L (12-78); ALKALINE PHOSPHATASE 108 U/L (45-117); BILIRUBIN,TOTAL 6.2 mg/dL (0.2-1.0); CREATININE 0.61 mg/dL (0.7-1.3); TOTAL PROTEIN 6.2 g/dL (6.4-8.2)
[2019-10-08 07:33] LABS: MD YES; MEAN CORPUSCULAR HEMOGLOBIN 37.1 pg (27.5-34.5); MEAN CORPUSCULAR HGB CONC 30.6 g/dL (33.2-36.2); MEAN CORPUSCULAR VOLUME 121.4 fL (81-97); MEAN PLATELET VOLUME 8.1 fL (7.4-10.4); PLATELET COUNT 310 x10^3/uL (130-400); RED BLOOD COUNT 2.25 x10^6/uL (4.38-5.82); RED CELL DISTRIBUTION WIDTH 29.5 % (9.4-14.8)
[2019-10-08 07:35] LABS: ACANTHOCYTES 1+; ANISOCYTOSIS 2+; CRENATED 1+; EOS#(MANUAL) 0.19 x10^3/uL (0.0-0.4); EOS% (MANUAL) 1 % (1-7); LYMPHS% (MANUAL) 50 % (22-44); MONOS#(MANUAL) 0.76 x10^3/uL (0.3-2.7); MONOS% (MANUAL) 4 % (2-9); NRBC % (MANUAL) 18 % (0-1); POLYCHROMASIA 2+; SEG#(MANUAL) 8.55 x10^3/uL (1.8-6.8); SEGS% (MANUAL) 45 % (42-75); SPHEROCYTES 1+
[2019-10-08 07:36] LABS: <PLATELET ESTIMATE> ADEQUATE; <PLT MORPHOLOGY> NORMAL PLT MORPH; HOWELL-JOLLY BODIES 1+; TARGET CELLS 1+
[2019-10-08] MEDS: MULTIVITAMIN 1 TABLET PO SCH (07:54)
[2019-10-08] MEDS: FOLIC ACID 1 MG TABLET PO SCH (07:54)
[2019-10-08 08:48] VITALS: BP 117/71
[2019-10-08] MEDS: SENNA/DOCUSATE TABLET PO SCH (09:00)
[2019-10-08] MEDS ORDERED: HYDROmorphone 1 MG/ML, 1ML INJ IV ONE ×2 (10:00→13:00)
[2019-10-08 10:34] LABS: ABSOLUTE RETICS # 0.583 x10^6/uL (0.5-1.5); RED BLOOD COUNT 2.24 x10^6/uL (4.38-5.82); RETICULOCYTE COUNT % 26.06 % (0.5-1.5)
[2019-10-08 15:05] VITALS: BP 106/54
[2019-10-08] MEDS ORDERED: LORazepam 2 MG/ML, 1ML IVPush ONE (17:10)
[2019-10-08 19:17] VITALS: BP 131/74
[2019-10-08] MEDS: ALPRazolam 1MG TAB PO PRN (22:17)
[2019-10-09] MEDS: HYDROmorphone 2 MG/ML, 1ML IVPush PRN ×4 (00:23→10:29)
[2019-10-09] MEDS: DIPHENHYDRAMINE 50 MG/ML, 1ML IVPush PRN (00:26)
[2019-10-09 00:52] VITALS: BP 138/81
[2019-10-09] MEDS: SODIUM CHLORIDE 0.45% 1,000 ML IV SCH (01:50)
[2019-10-09 06:35] LABS: ANION GAP 5 mmol/L (5-15); CALCIUM 8.9 mg/dL (8.5-10.1); CHLORIDE 109 mmol/L (98-107); CREATININE 0.56 mg/dL (0.7-1.3)
[2019-10-09 07:13] LABS: MD YES; MEAN CORPUSCULAR HEMOGLOBIN 37.6 pg (27.5-34.5); MEAN CORPUSCULAR HGB CONC 31.5 g/dL (33.2-36.2); MEAN CORPUSCULAR VOLUME 119.2 fL (81-97); MEAN PLATELET VOLUME 8.5 fL (7.4-10.4); PLATELET COUNT 272 x10^3/uL (130-400); RED CELL DISTRIBUTION WIDTH 28.7 % (9.4-14.8)
[2019-10-09 07:15] LABS: BAND#(MANUAL) 0.16 x10^3/uL; BANDS%(MANUAL) 1 % (0-7); BASOS#(MANUAL) 0.32 x10^3/uL (0-0.1); BASOS% (MANUAL) 2 % (0-1); EOS#(MANUAL) 0.81 x10^3/uL (0.0-0.4); EOS% (MANUAL) 5 % (1-7); LYMPH#(MANUAL) 5.35 x10^3/uL (1-3.4); LYMPHS% (MANUAL) 33 % (22-44); MONOS#(MANUAL) 2.59 x10^3/uL (0.3-2.7); MONOS% (MANUAL) 16 % (2-9); NRBC % (MANUAL) 52 % (0-1); SEG#(MANUAL) 6.97 x10^3/uL (1.8-6.8); SEGS% (MANUAL) 43 % (42-75)
[2019-10-09 07:17] LABS: ANISOCYTOSIS 2+; POLYCHROMASIA 2+
[2019-10-09 07:18] LABS: <PLATELET ESTIMATE> ADEQUATE; <PLT MORPHOLOGY> NORMAL PLT MORPH; ACANTHOCYTES 1+; CRENATED 1+; HOWELL-JOLLY BODIES 1+; SPHEROCYTES 1+; TARGET CELLS 1+
[2019-10-09] MEDS: FOLIC ACID 1 MG TABLET PO SCH (07:36)
[2019-10-09] MEDS: MULTIVITAMIN 1 TABLET PO SCH (07:36)
[2019-10-09] MEDS: SENNA/DOCUSATE TABLET PO SCH (07:48)
[2019-10-09 08:05] VITALS: BP 136/78
[2019-10-09] MEDS ORDERED: LORazepam 2 MG/ML, 1ML IVPush ONE (09:00)
[2019-10-09] MEDS ORDERED: HYDROmorphone 1 MG/ML, 1ML INJ IV ONE (09:00)
[2019-10-09] MEDS ORDERED: OXYC1TAB18 PO (11:28)
[2019-10-09] MEDS ORDERED: ALPR1TAB2 PO (11:28)
== END 2019-10-09 11:56 | disposition home or self-care (01) | DRG 423 ==
LOC: ED 16:41 → EDIP 18:40 → 4WST 21:07
PROVIDERS: ADMIT Family Medicine; ATTEND Family Medicine
PROC: 30233N1 Transfusion of Nonautologous Red Blood Cells into Peripheral Vein, Percutaneous Approach (ICD-10-PCS; principal; 2019-10-07)
DX: E74.4 Disorders of pyruvate metabolism and gluconeogenesis (principal); B19.20 Unspecified viral hepatitis C without hepatic coma; D53.9 Nutritional anemia, unspecified; D72.829 Elevated white blood cell count, unspecified; E78.5 Hyperlipidemia, unspecified; F11.20 Opioid dependence, uncomplicated; F17.210 Nicotine dependence, cigarettes, uncomplicated; G89.29 Other chronic pain; I10 Essential (primary) hypertension; Z86.19 Personal history of other infectious and parasitic diseases; Z80.0 Family history of malignant neoplasm of digestive organs; Z90.81 Acquired absence of spleen; Z91.041 Radiographic dye allergy status; Z88.8 Allergy status to other drugs, medicaments and biological substances; Z91.013 Allergy to seafood
CPT/HCPCS: 36415; 36430; 74177; 80048; 80053; 81003; 83615; 83690; 85014; 85018; 85025; 85045; 85610; 85730; 86850; 86900; 86923; 93005; 96374; 96375; G0378; J1170; J2405; Q9967; J1200; J2060; J2310; J2930; J7030; P9016

== ENCOUNTER 2019-11-01 23:52 | Emergency (ER) | payer MEDICAID ==
[~2019-11-01] VITALS: Ht 165.1 cm; Wt 52.2 kg
[2019-11-02 00:42] LABS: ALBUMIN 4.2 g/dL (3.4-5.0); ANION GAP 4 mmol/L (5-15); CALCIUM 8.6 mg/dL (8.5-10.1); CHLORIDE 111 mmol/L (98-107)
[2019-11-02 00:44] LABS: ALKALINE PHOSPHATASE 115 U/L (45-117); BILIRUBIN,TOTAL 8.5 mg/dL (0.2-1.0); TOTAL PROTEIN 6.9 g/dL (6.4-8.2)
[2019-11-02 00:49] LABS: MEAN CORPUSCULAR HEMOGLOBIN 38.1 pg (27.5-34.5); MEAN CORPUSCULAR HGB CONC 32.2 g/dL (33.2-36.2); MEAN PLATELET VOLUME 7.9 fL (7.4-10.4); PLATELET COUNT 439 x10^3/uL (130-400); RED CELL DISTRIBUTION WIDTH 24.9 % (9.4-14.8)
[2019-11-02 00:50] LABS: ALANINE AMINOTRANSFERASE 60 U/L (12-78)
[2019-11-02 01:01] LABS: MD YES
[2019-11-02 01:03] LABS: BASOS#(MANUAL) 0.31 x10^3/uL (0-0.1); BASOS% (MANUAL) 2 % (0-1); EOS#(MANUAL) 0.15 x10^3/uL (0.0-0.4); EOS% (MANUAL) 1 % (1-7); LYMPH#(MANUAL) 7.08 x10^3/uL (1-3.4); LYMPHS% (MANUAL) 46 % (22-44); MONOS% (MANUAL) 13 % (2-9); SEG#(MANUAL) 5.85 x10^3/uL (1.8-6.8); SEGS% (MANUAL) 38 % (42-75)
[2019-11-02 01:04] LABS: ANISOCYTOSIS 2+; CRENATED 1+; POLYCHROMASIA 2+; SPHEROCYTES 1+; STOMATOCYTES 1+; TARGET CELLS 1+
[2019-11-02 01:05] LABS: <PLATELET ESTIMATE> INCREASED; <PLT MORPHOLOGY> NORMAL PLT MORPH; HOWELL-JOLLY BODIES 1+
--- NOTE | 2019-11-02 01:08 | NUR ---
Pt reports abscess on side of face. MD notified.
[2019-11-02 02:04] LABS: MICROSCOPIC NOT IND
[2019-11-02 02:41] VITALS: BP 108/60
== END 2019-11-02 02:43 | disposition home or self-care (01) ==
LOC: ED 11-02 00:50
DX: E80.6 Other disorders of bilirubin metabolism (principal); D53.9 Nutritional anemia, unspecified; R53.1 Weakness; E78.5 Hyperlipidemia, unspecified; I10 Essential (primary) hypertension; F17.210 Nicotine dependence, cigarettes, uncomplicated; Z90.49 Acquired absence of other specified parts of digestive tract
CPT/HCPCS: 36415; 80053; 81003; 83690; 85025; 99283; 99406

== ENCOUNTER 2019-11-03 16:11 | Emergency (ER) | payer MEDICAID ==
[~2019-11-03] VITALS: Ht 167.6 cm; Wt 46.5 kg
[2019-11-03 16:24] VITALS: BP 126/72
--- NOTE | 2019-11-03 16:56 | NUR ---
LAB NOTIFIED THIS RN PT NOT IN ROOM, GOWN, AND MONITORING ON BED. BATHROOMS EMPTY. PT ELOPED AFTER MD ASSESSMENT.
== END 2019-11-03 16:59 | disposition left against medical advice (07) ==
LOC: ED 16:46
DX: D64.9 Anemia, unspecified (principal); R53.1 Weakness; E80.6 Other disorders of bilirubin metabolism; R00.0 Tachycardia, unspecified; I10 Essential (primary) hypertension; Z90.49 Acquired absence of other specified parts of digestive tract
CPT/HCPCS: 93005; 99283

== ENCOUNTER 2019-11-04 16:36 | Emergency (ER) | payer MEDICAID ==
[~2019-11-04] VITALS: Ht 165.1 cm; Wt 52.0 kg
[2019-11-04 18:05] LABS: ALANINE AMINOTRANSFERASE 50 U/L (12-78); ALBUMIN 3.9 g/dL (3.4-5.0); ANION GAP 7 mmol/L (5-15); CALCIUM 8.5 mg/dL (8.5-10.1); CHLORIDE 111 mmol/L (98-107); CREATININE 0.77 mg/dL (0.7-1.3)
[2019-11-04 18:08] LABS: ALKALINE PHOSPHATASE 121 U/L (45-117); BILIRUBIN,TOTAL 7.7 mg/dL (0.2-1.0); TOTAL PROTEIN 6.8 g/dL (6.4-8.2)
[2019-11-04 18:27] VITALS: BP 123/74
[2019-11-04 18:44] LABS: MEAN CORPUSCULAR HEMOGLOBIN 37.8 pg (27.5-34.5); MEAN CORPUSCULAR HGB CONC 32.2 g/dL (33.2-36.2); MEAN PLATELET VOLUME 8.1 fL (7.4-10.4); PLATELET COUNT 242 x10^3/uL (130-400); RED BLOOD COUNT 2.03 x10^6/uL (4.38-5.82); RED CELL DISTRIBUTION WIDTH 24.4 % (9.4-14.8)
--- NOTE | 2019-11-04 18:54 | NUR ---
PT UNABLE TO PROVIDE UA AND REFUSES SC. PROVIDER UPDATED.
[2019-11-04 18:55] LABS: MD YES
[2019-11-04 19:15] LABS: EOS#(MANUAL) 1.75 x10^3/uL (0.0-0.4); EOS% (MANUAL) 8 % (1-7); LYMPH#(MANUAL) 10.07 x10^3/uL (1-3.4); LYMPHS% (MANUAL) 46 % (22-44); METAMYELOCYTES# (MANUAL) 0.22 x10^3/uL (0-0); METAMYELOCYTES% (MANUAL) 1 % (0-1); MONOS#(MANUAL) 2.63 x10^3/uL (0.3-2.7); MONOS% (MANUAL) 12 % (2-9); MYELOCYTES# (MANUAL) 0.22 x10^3/uL (0-0); MYELOCYTES% (MANUAL) 1 % (0-0); SEG#(MANUAL) 7.01 x10^3/uL (1.8-6.8); SEGS% (MANUAL) 32 % (42-75)
[2019-11-04 19:16] LABS: ANISOCYTOSIS 2+
[2019-11-04 19:17] LABS: HOWELL-JOLLY BODIES 1+; POLYCHROMASIA 2+; SPHEROCYTES 1+
[2019-11-04 19:18] LABS: TARGET CELLS 1+; TEAR DROPS 2+
[2019-11-04 19:19] LABS: PAPPENHEIMER BODIES 1+
[2019-11-04 19:20] LABS: <PLATELET ESTIMATE> ADEQUATE; <PLT MORPHOLOGY> NORMAL PLT MORPH; CRENATED 1+
== END 2019-11-04 19:11 | disposition home or self-care (01) ==
LOC: ED 17:06
DX: R10.84 Generalized abdominal pain (principal); E80.6 Other disorders of bilirubin metabolism; D64.9 Anemia, unspecified; I10 Essential (primary) hypertension; Z90.49 Acquired absence of other specified parts of digestive tract; F17.290 Nicotine dependence, other tobacco product, uncomplicated
CPT/HCPCS: 36415; 80053; 83690; 85025; 86850; 86900; 99283

== ENCOUNTER 2019-12-04 16:31 | Emergency (ER) | payer MEDICAID ==
[~2019-12-04] VITALS: Ht 165.1 cm; Wt 50.3 kg
[2019-12-04] MEDS ORDERED: ONDANSETRON 2MG/ML, 2ML ONE (17:29)
[2019-12-04] MEDS ORDERED: DIPHENHYDRAMINE 50 MG/ML, 1ML ONE (17:29)
[2019-12-04] MEDS ORDERED: HYDROmorphone 1 MG/ML, 1ML INJ ONE ×2 (17:29→18:31)
[2019-12-04 17:39] LABS: MEAN CORPUSCULAR HEMOGLOBIN 34.8 pg (27.5-34.5); MEAN CORPUSCULAR HGB CONC 32.5 g/dL (33.2-36.2); MEAN PLATELET VOLUME 7.7 fL (7.4-10.4); PLATELET COUNT 460 x10^3/uL (130-400); RED BLOOD COUNT 2.67 x10^6/uL (4.38-5.82); RED CELL DISTRIBUTION WIDTH 23.3 % (9.4-14.8)
[2019-12-04 17:40] LABS: ALANINE AMINOTRANSFERASE 55 U/L (12-78); ALBUMIN 3.9 g/dL (3.4-5.0); ANION GAP 5 mmol/L (5-15); CALCIUM 8.6 mg/dL (8.5-10.1); CHLORIDE 110 mmol/L (98-107); CREATININE 0.57 mg/dL (0.7-1.3)
[2019-12-04 17:46] LABS: ALKALINE PHOSPHATASE 138 U/L (45-117); BILIRUBIN,TOTAL 4.9 mg/dL (0.2-1.0); TOTAL PROTEIN 6.5 g/dL (6.4-8.2)
[2019-12-04] MEDS: HYDROmorphone 1 MG/ML, 1ML INJ IVPush PRN ×2 (17:52→18:42)
[2019-12-04 17:58] LABS: MD YES
[2019-12-04] MEDS ORDERED: DIPHENHYDRAMINE 50 MG/ML, 1ML IVPush ONE (18:00)
[2019-12-04] MEDS ORDERED: ONDANSETRON 2MG/ML, 2ML IVPush ONE (18:00)
[2019-12-04] MEDS ORDERED: SODIUM CHLORIDE FLUSH 10ML SYR IVF ONE (18:00)
--- NOTE | 2019-12-04 18:00 | NUR ---
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 Patient takes dilaudid and percocet at home for pain control, "I ran out of the percocet". Patient is calm and cooperative, A&Ox4, monitoring in place, VSS. Abdomen tender to palpation. PIV placed, patient medicated per emar. Patient given urinal and educated need for UA. Call light in reach
[2019-12-04 18:14] LABS: BASOS#(MANUAL) 0.18 x10^3/uL (0-0.1); BASOS% (MANUAL) 1 % (0-1); EOS#(MANUAL) 1.09 x10^3/uL (0.0-0.4); EOS% (MANUAL) 6 % (1-7); LYMPH#(MANUAL) 8.69 x10^3/uL (1-3.4); LYMPHS% (MANUAL) 48 % (22-44); METAMYELOCYTES# (MANUAL) 0.18 x10^3/uL (0-0); METAMYELOCYTES% (MANUAL) 1 % (0-1); MONOS#(MANUAL) 1.27 x10^3/uL (0.3-2.7); MONOS% (MANUAL) 7 % (2-9); MYELOCYTES# (MANUAL) 0.18 x10^3/uL (0-0); MYELOCYTES% (MANUAL) 1 % (0-0); PROGRANULOCYTES# (MANUAL) 0.36 x10^3/uL (0-0); PROGRANULOCYTES% (MANUAL) 2 % (0-0); SEG#(MANUAL) 6.15 x10^3/uL (1.8-6.8); SEGS% (MANUAL) 34 % (42-75)
[2019-12-04 18:15] LABS: <PLATELET ESTIMATE> INCREASED; GIANT PLATELETS 1+; LARGE PLATELETS 1+
[2019-12-04 18:16] LABS: BASOPHILLIC STIPPLING 2+
[2019-12-04 18:17] LABS: ANISOCYTOSIS 2+; POLYCHROMASIA 2+
[2019-12-04 18:18] LABS: CRENATED 1+; HYPOCHROMIA 2+
[2019-12-04 18:19] LABS: STOMATOCYTES 1+; TARGET CELLS 1+; TEAR DROPS 1+
[2019-12-04 18:20] LABS: HOWELL-JOLLY BODIES 1+; SMUDGE CELLS 1+
[2019-12-04 18:21] LABS: PAPPENHEIMER BODIES 1+
[2019-12-04 18:22] LABS: SPHEROCYTES 1+
[2019-12-04 19:04] LABS: MICROSCOPIC AUTO
[2019-12-04 19:17] VITALS: BP 117/73
--- NOTE | 2019-12-04 19:23 | NUR ---
Patient given discharge instructions and they have confirmed that they understand the instructions. Patient ambulatory with steady gait.
== END 2019-12-04 19:25 | disposition home or self-care (01) ==
LOC: ED 17:36
DX: G89.29 Other chronic pain (principal); R10.84 Generalized abdominal pain; D72.829 Elevated white blood cell count, unspecified; D53.9 Nutritional anemia, unspecified; I10 Essential (primary) hypertension; F17.210 Nicotine dependence, cigarettes, uncomplicated
CPT/HCPCS: 36415; 80053; 81001; 85025; 87086; 96374; 96375; 96376; 99284; 99406; J1170; J1200

== ENCOUNTER 2019-12-27 00:46 | Emergency (ER) | payer MEDICAID ==
[~2019-12-27] VITALS: Ht 165.1 cm; Wt 51.4 kg
[2019-12-27] MEDS ORDERED: OXYcodone/APAP 5/325MG TABLET PO ONE (01:30)
[2019-12-27] MEDS ORDERED: OXYcodone/APAP 5/325MG TABLET ONE (01:32)
[2019-12-27 01:38] VITALS: BP 113/72
[2019-12-27 01:55] LABS: ANION GAP 3 mmol/L (5-15); CALCIUM 7.9 mg/dL (8.5-10.1); CHLORIDE 113 mmol/L (98-107); CREATININE 0.68 mg/dL (0.7-1.3)
[2019-12-27 02:02] LABS: MEAN CORPUSCULAR HEMOGLOBIN 40.2 pg (27.5-34.5); MEAN CORPUSCULAR HGB CONC 36.8 g/dL (33.2-36.2); MEAN PLATELET VOLUME 8.2 fL (7.4-10.4); PLATELET COUNT 463 x10^3/uL (130-400); RED BLOOD COUNT 2.44 x10^6/uL (4.38-5.82); RED CELL DISTRIBUTION WIDTH 24.2 % (9.4-14.8)
[2019-12-27 03:02] LABS: MD YES
[2019-12-27 03:03] LABS: ALANINE AMINOTRANSFERASE 64 U/L (12-78)
[2019-12-27 03:05] LABS: ALKALINE PHOSPHATASE 114 U/L (45-117); TOTAL PROTEIN 6.7 g/dL (6.4-8.2)
[2019-12-27 03:20] LABS: BASOS#(MANUAL) 0.29 x10^3/uL (0-0.1); BASOS% (MANUAL) 2 % (0-1); EOS#(MANUAL) 1.58 x10^3/uL (0.0-0.4); EOS% (MANUAL) 11 % (1-7); LYMPH#(MANUAL) 8.78 x10^3/uL (1-3.4); LYMPHS% (MANUAL) 61 % (22-44); MONOS#(MANUAL) 0.86 x10^3/uL (0.3-2.7); MONOS% (MANUAL) 6 % (2-9); SEG#(MANUAL) 2.88 x10^3/uL (1.8-6.8); SEGS% (MANUAL) 20 % (42-75)
[2019-12-27 03:21] LABS: ANISOCYTOSIS 2+; POLYCHROMASIA 2+
[2019-12-27 03:23] LABS: <PLATELET ESTIMATE> INCREASED; BASOPHILLIC STIPPLING 1+; HOWELL-JOLLY BODIES 1+; LARGE PLATELETS 1+; PAPPENHEIMER BODIES 1+; SMUDGE CELLS 1+; STOMATOCYTES 1+; TARGET CELLS 1+; TEAR DROPS 1+
== END 2019-12-27 01:53 | disposition left against medical advice (07) ==
LOC: ED 01:16
DX: R10.32 Left lower quadrant pain (principal); R10.12 Left upper quadrant pain; R31.9 Hematuria, unspecified; R19.7 Diarrhea, unspecified; Z72.9 Problem related to lifestyle, unspecified; Z76.5 Malingerer [conscious simulation]; Z90.49 Acquired absence of other specified parts of digestive tract
CPT/HCPCS: 36415; 80053; 83690; 85025; 99283

== ENCOUNTER 2020-01-31 23:44 | Emergency (ER) | payer MEDICAID ==
[~2020-01-31] VITALS: Ht 165.1 cm; Wt 50.6 kg
[2020-01-31 23:46] VITALS: BP 102/51
--- NOTE | 2020-02-01 00:26 | NUR ---
Patient c/o pain. States he takes Dilaudid at home. Advised patient we would check labs and reevaluate. Patient became angry and states he does not want to be seen. Patient eloped.
[2020-02-01] MEDS ORDERED: DICYCLOMINE 10 MG/ML, 2ML IM ONE (00:30)
== END 2020-02-01 00:28 | disposition left against medical advice (07) ==
LOC: ED 02-01
DX: G89.29 Other chronic pain (principal); R10.9 Unspecified abdominal pain; I10 Essential (primary) hypertension
CPT/HCPCS: 99281

== ENCOUNTER 2020-02-21 22:54 | Emergency (ER) | payer MEDICAID ==
[~2020-02-21] VITALS: Ht 165.1 cm; Wt 50.4 kg
--- NOTE | 2020-02-21 23:09 | NUR ---
ER PROVIDER AT BEDSIDE FOR EVALUATION.
--- NOTE | 2020-02-21 23:10 | NUR ---
PATIENT WALKED BACK FROM TRIAGE WITH CHIEF C/O BLOOD IN URINE. PATIENT STATES HE HAS ABD PAIN, BACK PAIN, AND HASN'T EATEN IN 3 DAYS. PATIENT REPORTS FEVER THE LAST 2 DAYS, PATIENT FEELS WEAK AND "NO ENERGY." PATIENT DENIES N/V/D. NADN, VSS, PATIENT IS JAUNDICED LOOKING, TEARFUL DURING ASSESSMENT, CALL LIGHT WITHIN REACH.
[2020-02-21] MEDS ORDERED: DICYCLOMINE 10 MG/ML, 2ML ONE (23:20)
[2020-02-21] MEDS ORDERED: ONDANSETRON ODT 4 MG ONE (23:20)
--- NOTE | 2020-02-21 23:29 | NUR ---
PATIENT MEDICATED PER eMAR, AMBULATED TO BATHROOM WITH STEADY GAIT TO LEAVE URINE SAMPLE.
[2020-02-21] MEDS ORDERED: DICYCLOMINE 10 MG/ML, 2ML IM ONE (23:30)
[2020-02-21] MEDS ORDERED: ONDANSETRON ODT 4 MG PO ONE (23:30)
--- NOTE | 2020-02-21 23:37 | NUR ---
URINE SAMPLE COLLECTED AND SENT TO LAB.
[2020-02-21 23:51] LABS: MEAN CORPUSCULAR HEMOGLOBIN 40.3 pg (27.5-34.5); MEAN CORPUSCULAR HGB CONC 33.4 g/dL (33.2-36.2); MEAN PLATELET VOLUME 7.4 fL (7.4-10.4); PLATELET COUNT 613 x10^3/uL (130-400); RED BLOOD COUNT 1.83 x10^6/uL (4.38-5.82); RED CELL DISTRIBUTION WIDTH 25.9 % (9.4-14.8)
[2020-02-21 23:53] LABS: MICROSCOPIC AUTO
--- NOTE | 2020-02-21 23:56 | NUR ---
BEDSIDE REPORT RECEIVED FROM KATE LUTZ
[2020-02-22] VITALS (7 sets, daily range): BP systolic 101–118; BP diastolic 53–74
[2020-02-22 00:02] LABS: ANION GAP 4 mmol/L (5-15); CALCIUM 8.7 mg/dL (8.5-10.1); CHLORIDE 113 mmol/L (98-107); MD YES
[2020-02-22 00:05] LABS: ALANINE AMINOTRANSFERASE 56 U/L (12-78); ALKALINE PHOSPHATASE 112 U/L (45-117); BILIRUBIN,TOTAL 6.3 mg/dL (0.2-1.0); CREATININE 0.83 mg/dL (0.7-1.3); TOTAL PROTEIN 6.6 g/dL (6.4-8.2)
--- NOTE | 2020-02-22 00:21 | NUR ---
BREAK RN: CHAZ EDWARDS IN ROOM UPDATING PATIENT.
[2020-02-22] MEDS ORDERED: HYDROmorphone 1 MG/ML, 1ML INJ IV ONE ×3 (00:30→05:00)
[2020-02-22] MEDS ORDERED: DIPHENHYDRAMINE 25 MG CAPSULE PO ONE (00:30)
--- NOTE | 2020-02-22 01:10 | NUR ---
Report given to NELDA Garner
[2020-02-22] MEDS ORDERED: HYDROmorphone 1 MG/ML, 1ML INJ ONE ×3 (01:22→04:40)
[2020-02-22] MEDS ORDERED: DIPHENHYDRAMINE 25 MG CAPSULE ONE (01:23)
--- NOTE | 2020-02-22 01:45 | NUR ---
BLOOD CONSENT SIGNED BY PT, PT FULLY AWARE AND EDUCATED ABOUT THE PROCEDURE BY DR. CRANE. PT VERBALIZED UNDERSTANDING. 0149: BLOOD INFUSION STARTED PER POLICY. PT TOLERATING WELL.
[2020-02-22 01:47] LABS: BAND#(MANUAL) 0.33 x10^3/uL; BANDS%(MANUAL) 2 % (0-7); BASOS#(MANUAL) 0.33 x10^3/uL (0-0.1); BASOS% (MANUAL) 2 % (0-1); EOS% (MANUAL) 8 % (1-7); LYMPH#(MANUAL) 10.43 x10^3/uL (1-3.4); LYMPHS% (MANUAL) 64 % (22-44); MONOS#(MANUAL) 1.63 x10^3/uL (0.3-2.7); MONOS% (MANUAL) 10 % (2-9); SEG#(MANUAL) 2.28 x10^3/uL (1.8-6.8); SEGS% (MANUAL) 14 % (42-75)
[2020-02-22 01:48] LABS: ANISOCYTOSIS 2+; HOWELL-JOLLY BODIES 1+; PAPPENHEIMER BODIES 1+; POLYCHROMASIA 2+
[2020-02-22 01:49] LABS: <PLATELET ESTIMATE> INCREASED; <PLT MORPHOLOGY> NORMAL PLT MORPH; SMUDGE CELLS 1+
--- NOTE | 2020-02-22 02:00 | NUR ---
PT SITING UPRIGHT ON TAYLOR FLOWERS VSS. PT PROVIDED BLANKET. PT DENIES ANY ADDITIONAL NEEDS AT THIS TIME. CALL LIGHT AND PERSONAL BELONGINGS WITHIN REACH. WILL CONTINUE TO MONITOR.
--- NOTE | 2020-02-22 03:02 | NUR ---
PT SITTING UPRIGHT ON TAYLOR FLOWERS VSS. PT ON PHONE. PT TOLERATING BLOOD TRANFUSION WELL. PROVIDED WARM BLANKET. NO ADDITIONAL NEEDS AT THIS TIME. CALL LIGHT WITHIN REACH.
[2020-02-22] MEDS ORDERED: DIPHENHYDRAMINE 50 MG/ML, 1ML ONE (03:21)
[2020-02-22] MEDS ORDERED: DIPHENHYDRAMINE 50 MG/ML, 1ML IVPush ONE (03:30)
--- NOTE | 2020-02-22 04:05 | NUR ---
PT UPRIGHT ON GURNEY. PT REMAINS CALM AND TOLERATING TRANSFUSION WELL. PT COMPLAINS OF PAIN AND REQUESTS PAIN MEDS AND BENADRYL IV, ERP NOTIFIED AND PT MEDICATED PER EMAR. PT DENIES ANY ADDITIONAL NEEDS AT THIS TIME. CALL LIGHT IN REACH
--- NOTE | 2020-02-22 04:17 | NUR ---
ERP AT BEDSIDE DISCUSSION PLAN OF CARE
--- NOTE | 2020-02-22 05:00 | NUR ---
END OF TRANSFUSION, VSS, NO ACUTE CHANGES. PT STATES "I FEEL FINE, THAT DID THE TRICK" PT DENIES ANY NEEDS AT THIS TIME. AWAITING D/C.
--- NOTE | 2020-02-22 05:06 | NUR ---
Patient given discharge instructions and they have confirmed that they understand the instructions. Patient ambulatory with steady gait.
== END 2020-02-22 05:12 | disposition home or self-care (01) ==
LOC: ED 23:00
DX: R10.84 Generalized abdominal pain (principal); R53.1 Weakness; D53.9 Nutritional anemia, unspecified; I10 Essential (primary) hypertension; F17.210 Nicotine dependence, cigarettes, uncomplicated; Z76.5 Malingerer [conscious simulation]; Z72.9 Problem related to lifestyle, unspecified; Z90.49 Acquired absence of other specified parts of digestive tract
CPT/HCPCS: 36415; 36430; 80053; 81001; 83690; 85025; 86850; 86900; 86923; 87086; 96372; 96374; 96375; 96376; 99285; 99406; J0500; J1170; J1200; P9016; Q0162; Q0163

== ENCOUNTER 2020-02-23 00:14 | Emergency (ER) | payer MEDICAID ==
[~2020-02-23] VITALS: Ht 165.1 cm; Wt 50.8 kg
[2020-02-23 00:18] VITALS: BP 103/62
[2020-02-23 00:49] LABS: MEAN CORPUSCULAR HEMOGLOBIN 38.8 pg (27.5-34.5); MEAN PLATELET VOLUME 7.2 fL (7.4-10.4); PLATELET COUNT 559 x10^3/uL (130-400); RED BLOOD COUNT 2.37 x10^6/uL (4.38-5.82); RED CELL DISTRIBUTION WIDTH 28.6 % (9.4-14.8)
[2020-02-23 00:55] LABS: MD YES
--- NOTE | 2020-02-23 00:55 | NUR ---
PT AMBULATED to room. in no acute distress. states that he feels his blood levels are low and wants to get checked up after being seen here yesterday and received 1 unit of prbc for a low H&H.
[2020-02-23 01:00] LABS: ANION GAP 5 mmol/L (5-15); CALCIUM 8.4 mg/dL (8.5-10.1); CHLORIDE 112 mmol/L (98-107); CREATININE 0.67 mg/dL (0.7-1.3)
[2020-02-23 01:17] LABS: BASOS#(MANUAL) 0.15 x10^3/uL (0-0.1); BASOS% (MANUAL) 1 % (0-1); EOS#(MANUAL) 1.36 x10^3/uL (0.0-0.4); EOS% (MANUAL) 9 % (1-7); LYMPH#(MANUAL) 8.31 x10^3/uL (1-3.4); LYMPHS% (MANUAL) 55 % (22-44); MONOS#(MANUAL) 0.91 x10^3/uL (0.3-2.7); MONOS% (MANUAL) 6 % (2-9); MYELOCYTES# (MANUAL) 0.15 x10^3/uL (0-0); MYELOCYTES% (MANUAL) 1 % (0-0); SEG#(MANUAL) 4.23 x10^3/uL (1.8-6.8); SEGS% (MANUAL) 28 % (42-75)
[2020-02-23 01:18] LABS: ANISOCYTOSIS 2+; POLYCHROMASIA 2+
[2020-02-23 01:19] LABS: TARGET CELLS 1+; TEAR DROPS 1+
[2020-02-23 01:20] LABS: HOWELL-JOLLY BODIES 1+; PAPPENHEIMER BODIES 1+
--- NOTE | 2020-02-23 01:20 | NUR ---
lab results back and levels are wnl and not requiring transfusion of blood. pt awake and alert, no distress at this time, on cr monitor.
[2020-02-23 01:22] LABS: <PLATELET ESTIMATE> INCREASED; <PLT MORPHOLOGY> NORMAL PLT MORPH; SMUDGE CELLS 1+
--- NOTE | 2020-02-23 01:37 | NUR ---
f/u and d/c instructions given to pt and he v/u. cooperative and calm and was thankful for being checked out. pt d/c'd without incident and ambulatory.
== END 2020-02-23 01:39 | disposition home or self-care (01) ==
LOC: ED 00:45
DX: R53.1 Weakness (principal); G89.29 Other chronic pain; R10.9 Unspecified abdominal pain; R11.2 Nausea with vomiting, unspecified; I11.9 Hypertensive heart disease without heart failure; R94.31 Abnormal electrocardiogram [ECG] [EKG]; D63.8 Anemia in other chronic diseases classified elsewhere; F17.290 Nicotine dependence, other tobacco product, uncomplicated; Z72.9 Problem related to lifestyle, unspecified; Z76.5 Malingerer [conscious simulation]; Z90.49 Acquired absence of other specified parts of digestive tract; Z90.81 Acquired absence of spleen
CPT/HCPCS: 36415; 80048; 85025; 93005; 99284

== ENCOUNTER 2020-03-05 23:25 | Emergency (ER) | payer MEDICAID ==
[~2020-03-05] VITALS: Ht 165.1 cm; Wt 51.0 kg
[~2020-03-05 23:25] MED LIST changes: -OXYC-307; -OXYC-307 PO; +OXYC-380; +OXYC-380 PO; -OXYC5TAB3 PO; +OXYC5TAB98 PO
[2020-03-05 23:45] VITALS: BP 124/70
--- NOTE | 2020-03-05 23:54 | NUR ---
BIBA FOR ABD AND FLANK PAIN AND BLOODY URINE. PT STATES HE TOOK 4 MG DILAUDID PO AT HOME AROUND 0730 THIS AM AND A PERCOCET AROUND 1500 WITH NO RELIEF. PT HAS BEEN SEEN HERE RECENTLY FOR SAME.
[2020-03-06] MEDS ORDERED: DICYCLOMINE 10 MG/ML, 2ML IM ONE
[2020-03-06 00:02] LABS: MEAN CORPUSCULAR HEMOGLOBIN 37.1 pg (27.5-34.5); MEAN CORPUSCULAR HGB CONC 33.7 g/dL (33.2-36.2); MEAN PLATELET VOLUME 7.4 fL (7.4-10.4); PLATELET COUNT 550 x10^3/uL (130-400); RED BLOOD COUNT 2.15 x10^6/uL (4.38-5.82); RED CELL DISTRIBUTION WIDTH 25.8 % (9.4-14.8)
[2020-03-06] MEDS ORDERED: DICYCLOMINE 20 MG TABLET ONE (00:09)
[2020-03-06 00:14] LABS: ALANINE AMINOTRANSFERASE 54 U/L (12-78); ALBUMIN 4.2 g/dL (3.4-5.0); ANION GAP 6 mmol/L (5-15); CALCIUM 8.7 mg/dL (8.5-10.1); CHLORIDE 111 mmol/L (98-107); CREATININE 0.61 mg/dL (0.7-1.3)
--- NOTE | 2020-03-06 00:15 | NUR ---
PT REFUSED MEDICATION ORDERED BY MD AND REQUESTED TO SPEAK WITH MD, MD MADE AWARE OF REQUEST. WITHIN A FEW MOMENTS OF PTS REQUEST PT DRESSED HIMSELF AND ELOPED WITHOUT DISCHARGE AND WITHOUT SIGNING AMA PAPERS. MD AWARE OF PTS ELOPMENT
[2020-03-06 00:17] LABS: ALKALINE PHOSPHATASE 114 U/L (45-117); BILIRUBIN,TOTAL 6.3 mg/dL (0.2-1.0); TOTAL PROTEIN 6.6 g/dL (6.4-8.2)
[2020-03-06 00:22] LABS: MD YES
[2020-03-06 00:44] LABS: MICROSCOPIC NOT IND
[2020-03-06 00:48] LABS: BASOS#(MANUAL) 0.26 x10^3/uL (0-0.1); BASOS% (MANUAL) 2 % (0-1); EOS#(MANUAL) 0.51 x10^3/uL (0.0-0.4); EOS% (MANUAL) 4 % (1-7); LYMPH#(MANUAL) 8.45 x10^3/uL (1-3.4); LYMPHS% (MANUAL) 66 % (22-44); MONOS#(MANUAL) 1.02 x10^3/uL (0.3-2.7); MONOS% (MANUAL) 8 % (2-9); SEG#(MANUAL) 2.56 x10^3/uL (1.8-6.8); SEGS% (MANUAL) 20 % (42-75)
[2020-03-06 00:50] LABS: ANISOCYTOSIS 2+; POLYCHROMASIA 2+
[2020-03-06 00:51] LABS: HOWELL-JOLLY BODIES 1+; TARGET CELLS 1+
[2020-03-06 00:52] LABS: BASOPHILLIC STIPPLING 1+
[2020-03-06 00:53] LABS: <PLATELET ESTIMATE> INCREASED; <PLT MORPHOLOGY> NORMAL PLT MORPH; SMUDGE CELLS 1+
[2020-03-06 00:55] LABS: ACANTHOCYTES 1+
== END 2020-03-06 01:17 | disposition left against medical advice (07) ==
LOC: ED 23:48
DX: G89.29 Other chronic pain (principal); R10.84 Generalized abdominal pain; R31.9 Hematuria, unspecified; I10 Essential (primary) hypertension; F17.210 Nicotine dependence, cigarettes, uncomplicated; Z90.49 Acquired absence of other specified parts of digestive tract
CPT/HCPCS: 36415; 80053; 81003; 83690; 85025; 99283

== ENCOUNTER 2020-04-09 00:10 | Emergency (ER) | payer MEDICAID ==
[~2020-04-09] VITALS: Ht 167.6 cm; Wt 60.0 kg
[~2020-04-09 00:10] MED LIST changes: -FOLI-17; -FOLI-17 PO; -FOLI0.4T2 PO; +FOLI0.4T5 PO; +FOLI1TAB32; +FOLI1TAB32 PO
[2020-04-09 00:15] VITALS: BP 106/68
--- NOTE | 2020-04-09 00:17 | NUR ---
PT CHANGING INTO GOWN AT THIS TIME
--- NOTE | 2020-04-09 00:27 | NUR ---
PROVIDER AT BEDSIDE FOR ASSESSMENT
--- NOTE | 2020-04-09 00:36 | NUR ---
LAB AT BEDSIDE AT THIS TIME
--- NOTE | 2020-04-09 00:40 | NUR ---
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
[2020-04-09 00:47] LABS: MEAN CORPUSCULAR HEMOGLOBIN 38.8 pg (27.5-34.5); MEAN CORPUSCULAR HGB CONC 33.2 g/dL (33.2-36.2); MEAN PLATELET VOLUME 7.2 fL (7.4-10.4); PLATELET COUNT 481 x10^3/uL (130-400); RED BLOOD COUNT 2.01 x10^6/uL (4.38-5.82); RED CELL DISTRIBUTION WIDTH 24.1 % (9.4-14.8)
[2020-04-09 00:58] LABS: ALANINE AMINOTRANSFERASE 61 U/L (12-78); ALBUMIN 4.1 g/dL (3.4-5.0); ANION GAP 6 mmol/L (5-15); CALCIUM 8.6 mg/dL (8.5-10.1); CHLORIDE 111 mmol/L (98-107); CREATININE 0.63 mg/dL (0.7-1.3)
[2020-04-09 01:01] LABS: ALKALINE PHOSPHATASE 115 U/L (45-117); BILIRUBIN,TOTAL 6.6 mg/dL (0.2-1.0); TOTAL PROTEIN 6.8 g/dL (6.4-8.2)
--- NOTE | 2020-04-09 01:19 | NUR ---
Patient/Caregiver given discharge instructions and they have confirmed that they understand the instructions. Patient ambulatory with steady gait.
[2020-04-09 01:47] LABS: MD YES
[2020-04-09 01:50] LABS: <PLATELET ESTIMATE> INCREASED; ANISOCYTOSIS 2+; BASOS#(MANUAL) 0.34 x10^3/uL (0-0.1); BASOS% (MANUAL) 2 % (0-1); EOS#(MANUAL) 0.52 x10^3/uL (0.0-0.4); EOS% (MANUAL) 3 % (1-7); LYMPH#(MANUAL) 8.94 x10^3/uL (1-3.4); LYMPHS% (MANUAL) 52 % (22-44); MONOS#(MANUAL) 2.41 x10^3/uL (0.3-2.7); MONOS% (MANUAL) 14 % (2-9); POLYCHROMASIA 2+; SEG#(MANUAL) 4.99 x10^3/uL (1.8-6.8); SEGS% (MANUAL) 29 % (42-75); TARGET CELLS 1+
[2020-04-09 01:51] LABS: SMALL PLATELETS 1+
== END 2020-04-09 01:20 | disposition home or self-care (01) ==
LOC: ED 01:18
DX: R31.9 Hematuria, unspecified (principal); R10.84 Generalized abdominal pain; K92.1 Melena; D63.8 Anemia in other chronic diseases classified elsewhere; Z72.9 Problem related to lifestyle, unspecified; I10 Essential (primary) hypertension; Z90.49 Acquired absence of other specified parts of digestive tract; Z90.81 Acquired absence of spleen
CPT/HCPCS: 36415; 80053; 83690; 85025; 99283

== ENCOUNTER 2020-05-30 04:07 | Emergency (ER) | payer MEDICAID ==
[~2020-05-30] VITALS: Ht 165.1 cm; Wt 56.0 kg
[2020-05-30] MEDS ORDERED: HYDR4TAB48 PO (04:35)
--- NOTE | 2020-05-30 04:44 | NUR ---
PT TO ED C/O GENERALIZED ABD PAIN. PT TEARFUL, STATES "I CANT DEAL WITH THIS ANYMORE". 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 ABD SOFT, NON DISTENDED. PT STATES HEMATURIA X 3-4 DAYS & BLOOD IN STOOL X 2 DAYS. PIV ESTB, LABS DRAWN & SENT.
[2020-05-30] MEDS ORDERED: FENTANYL PF 100 MCG/2ML IV ONE (05:00)
[2020-05-30] MEDS ORDERED: SODIUM CHLORIDE 0.9% 1,000ML IVBOLUS ONE (05:00)
[2020-05-30] MEDS ORDERED: SODIUM CHLORIDE FLUSH 10ML SYR IVF ONE (05:00)
[2020-05-30] MEDS ORDERED: ONDANSETRON 2MG/ML, 2ML IVPush ONE (05:00)
[2020-05-30] MEDS ORDERED: FENTANYL PF 100 MCG/2ML ONE (05:15)
[2020-05-30] MEDS ORDERED: ONDANSETRON 2MG/ML, 2ML ONE (05:15)
--- NOTE | 2020-05-30 05:16 | NUR ---
pt back from ct. using urinal.
[2020-05-30 05:25] LABS: MEAN CORPUSCULAR HEMOGLOBIN 38.5 pg (27.5-34.5); MEAN CORPUSCULAR HGB CONC 33.5 g/dL (33.2-36.2); MEAN PLATELET VOLUME 7.7 fL (7.4-10.4); PLATELET COUNT 531 x10^3/uL (130-400); RED BLOOD COUNT 2.27 x10^6/uL (4.38-5.82); RED CELL DISTRIBUTION WIDTH 27.3 % (9.4-14.8)
[2020-05-30 05:32] LABS: ALBUMIN 4.4 g/dL (3.4-5.0); ANION GAP 6 mmol/L (5-15); CALCIUM 9.1 mg/dL (8.5-10.1); CHLORIDE 109 mmol/L (98-107)
[2020-05-30 05:35] LABS: ALANINE AMINOTRANSFERASE 58 U/L (12-78); ALKALINE PHOSPHATASE 129 U/L (45-117); BILIRUBIN,TOTAL 6.1 mg/dL (0.2-1.0); CREATININE 0.73 mg/dL (0.7-1.3); TOTAL PROTEIN 7.2 g/dL (6.4-8.2)
[2020-05-30 05:47] LABS: MICROSCOPIC NOT IND
[2020-05-30 06:19] VITALS: BP 107/66
[2020-05-30 06:33] LABS: MD YES
[2020-05-30 06:35] LABS: EOS% (MANUAL) 6 % (1-7); MONOS% (MANUAL) 13 % (2-9)
[2020-05-30 06:36] LABS: ANISOCYTOSIS 2+; BANDS%(MANUAL) 1 % (0-7); HOWELL-JOLLY BODIES 1+; LYMPHS% (MANUAL) 48 % (22-44); METAMYELOCYTES% (MANUAL) 1 % (0-1); SEGS% (MANUAL) 31 % (42-75)
[2020-05-30 06:37] LABS: CRENATED 1+; POLYCHROMASIA 3+
[2020-05-30 06:38] LABS: <PLATELET ESTIMATE> INCREASED; <PLT MORPHOLOGY> NORMAL PLT MORPH; SPHEROCYTES 1+
[2020-05-30 06:39] LABS: TARGET CELLS 1+
== END 2020-05-30 07:03 | disposition home or self-care (01) ==
LOC: ED 05:34
DX: R10.84 Generalized abdominal pain (principal); D55.0 Anemia due to glucose-6-phosphate dehydrogenase [G6PD] deficiency; D72.829 Elevated white blood cell count, unspecified; R94.5 Abnormal results of liver function studies; E80.6 Other disorders of bilirubin metabolism; R74.01 Elevation of levels of liver transaminase levels; D58.8 Other specified hereditary hemolytic anemias; F17.210 Nicotine dependence, cigarettes, uncomplicated; I10 Essential (primary) hypertension
CPT/HCPCS: 36415; 74022; 80053; 81003; 83690; 85025; 93005; 96361; 96374; 96375; 99285; J2405; J3010; J7030